=== PATIENT | female | born 1955 | race Caucasian/White ===

== ENCOUNTER → 2019-11-30 09:02 | Outpatient (BNVA) | payer MEDICARE, MEDICAID, SELFPAY | PROVIDERS: Family Provider Family Medicine; PCP Family Medicine; Visit Provider Family Medicine | DX: E87.6 Hypokalemia (principal); E78.5 Hyperlipidemia, unspecified; G47.00 Insomnia, unspecified; I50.9 Heart failure, unspecified | CPT/HCPCS: 80053; 80061; 83735 ==

== ENCOUNTER → 2020-02-20 09:40 | Outpatient (BNVA) | payer MEDICARE, MEDICAID, SELFPAY | PROVIDERS: Family Provider Family Medicine; PCP Family Medicine; Referring Provider Family Medicine; Visit Provider Anesthesiology Pain Medicine | DX: M47.812 Spondylosis without myelopathy or radiculopathy, cervical region (principal); M54.9 Dorsalgia, unspecified; Z79.891 Long term (current) use of opiate analgesic | CPT/HCPCS: 99204 ==

== ENCOUNTER → 2020-03-05 13:07 | Outpatient (BNVA) | payer MEDICARE, MEDICAID, SELFPAY | PROVIDERS: Family Provider Family Medicine; PCP Family Medicine; Visit Provider Anesthesiology Pain Medicine | DX: M47.812 Spondylosis without myelopathy or radiculopathy, cervical region (principal) | CPT/HCPCS: 64633; 64634; 77003; J1030; J2001 ==

== ENCOUNTER → 2020-03-19 10:18 | Outpatient (BNVA) | payer MEDICARE, MEDICAID, SELFPAY | PROVIDERS: Family Provider Family Medicine; PCP Family Medicine; Visit Provider Anesthesiology Pain Medicine | DX: M79.18 Myalgia, other site (principal); M47.812 Spondylosis without myelopathy or radiculopathy, cervical region; M54.9 Dorsalgia, unspecified | CPT/HCPCS: 20553; 99213; J1030; J3490 ==

== ENCOUNTER → 2020-04-16 09:54 | Outpatient (BNVA) | payer MEDICARE, MEDICAID, SELFPAY | PROVIDERS: Family Provider Family Medicine; PCP Family Medicine; Visit Provider Anesthesiology Pain Medicine | DX: M47.812 Spondylosis without myelopathy or radiculopathy, cervical region (principal); M54.9 Dorsalgia, unspecified | CPT/HCPCS: 99212; 99213 ==

== ENCOUNTER 2020-08-01 14:19 | Outpatient (CLI) | payer MEDICARE, MEDICAID, SELFPAY ==
--- NOTE | 2020-08-01 14:00 | MM_ITS ---
WS: [id number] BILATERAL SCREENING DIGITAL MAMMOGRAM WITH CAD HISTORY: Screening COMPARISON: 06/27/2015 Bilateral CC and MLO views submitted. Computer aided detection analyzed. Breast composition: There are scattered areas of fibroglandular density. No suspicious masses, microc alcifications or architectural distortion. Bilateral breast arterial calcifications. MM/[place] [id number] IMPRESSION: BI-RADS: 2-Benign FOLLOW UP: 1 Year Follow-up
--- NOTE | 2020-08-01 14:30 | XR_ITS ---
WS: [id number] SCREENING DEXA SCAN [employer] CLINICAL INFORMATION: Screening COMPARISON: None. FINDINGS: The L1-L4 bone mineral density measures 0.759 g/cm2. This corresponds to a T score score of -3.5 and Z score of -1.8. Left femoral neck bone mineral density measures 0.600 g/cm2. This corresponds to a T score of -3.2 an d Z score of -1.9. Right femoral neck bone mineral density measures 0.677 g/cm2. This corresponds to a T score -2.6of an d Z score of -1.3. Mean femoral neck bone mineral density measures 0.639 g/cm2. This corresponds to a T score of -2.9 an d Z score of -1.6. XR/XR DEXA axial skeleton* [id number] IMPRESSION: Osteoporosis Patient's FRAX calculated 10 year probability for major osteoporotic fracture i s 27.4 % and osteoporotic hip fracture is 8.7%.
== END 2020-08-01 14:20 | disposition home or self-care (01) ==
PROVIDERS: PCP Family Medicine; Visit Provider Family Medicine
DX: Z12.31 Encounter for screening mammogram for malignant neoplasm of breast (principal); Z13.820 Encounter for screening for osteoporosis; Z78.0 Asymptomatic menopausal state; M81.0 Age-related osteoporosis without current pathological fracture
CPT/HCPCS: 77067; 77080

== ENCOUNTER 2020-08-15 10:55 | Outpatient (CLI) | payer MEDICARE, MEDICAID, SELFPAY | END 2020-08-15 10:56 | disposition home or self-care (01) | LOC: LAB 05-26 13:24 | PROVIDERS: PCP Family Medicine; Visit Provider Family Medicine | DX: R00.0 Tachycardia, unspecified (principal); M81.0 Age-related osteoporosis without current pathological fracture | CPT/HCPCS: 80053; 84443 ==

== ENCOUNTER → 2020-12-20 09:54 | Outpatient (BNVA) | payer MEDICARE, MEDICAID, SELFPAY | PROVIDERS: PCP Family Medicine; Visit Provider Anesthesiology Pain Medicine | DX: M79.18 Myalgia, other site (principal); M54.2 Cervicalgia; M47.812 Spondylosis without myelopathy or radiculopathy, cervical region; M54.9 Dorsalgia, unspecified; M25.511 Pain in right shoulder | CPT/HCPCS: 20553; 99214; J1030; J3490 ==

== ENCOUNTER → 2021-01-07 08:45 | Outpatient (BNVA) | payer MEDICARE, MEDICAID, SELFPAY | PROVIDERS: PCP Family Medicine; Visit Provider Family Medicine | DX: E78.2 Mixed hyperlipidemia (principal); N30.00 Acute cystitis without hematuria; R30.0 Dysuria; F41.1 Generalized anxiety disorder; J41.0 Simple chronic bronchitis; M81.0 Age-related osteoporosis without current pathological fracture; M47.27 Other spondylosis with radiculopathy, lumbosacral region; F51.04 Psychophysiologic insomnia; I11.0 Hypertensive heart disease with heart failure; I50.32 Chronic diastolic (congestive) heart failure | CPT/HCPCS: 80053; 80061; 81000; 87086 ==

== ENCOUNTER → 2021-04-04 09:37 | Outpatient (BNVA) | payer MEDICARE, MEDICAID, SELFPAY | PROVIDERS: PCP Family Medicine; Visit Provider Anesthesiology Pain Medicine | DX: G89.29 Other chronic pain (principal); M47.812 Spondylosis without myelopathy or radiculopathy, cervical region; M25.519 Pain in unspecified shoulder; Z79.891 Long term (current) use of opiate analgesic | CPT/HCPCS: 99214 ==

== ENCOUNTER → 2021-05-17 09:36 | Outpatient (BNVA) | payer MEDICARE, MEDICAID, SELFPAY | PROVIDERS: PCP Family Medicine; Visit Provider Anesthesiology Pain Medicine | DX: M47.812 Spondylosis without myelopathy or radiculopathy, cervical region (principal); Z79.891 Long term (current) use of opiate analgesic | CPT/HCPCS: 64633; 64634 ==

== ENCOUNTER → 2021-05-21 09:08 | Outpatient (BNVA) | payer MEDICARE, MEDICAID, SELFPAY | PROVIDERS: PCP Family Medicine; Visit Provider Anesthesiology Pain Medicine | DX: M47.812 Spondylosis without myelopathy or radiculopathy, cervical region (principal); Z79.891 Long term (current) use of opiate analgesic | CPT/HCPCS: 99213; 99214 ==

== ENCOUNTER → 2021-07-16 10:01 | Outpatient (BNVA) | payer MEDICARE, MEDICAID, SELFPAY | PROVIDERS: PCP Family Medicine; Visit Provider Anesthesiology Pain Medicine | DX: M47.812 Spondylosis without myelopathy or radiculopathy, cervical region (principal); Z87.891 Personal history of nicotine dependence | CPT/HCPCS: 99214 ==

== ENCOUNTER → 2021-08-12 13:04 | Outpatient (BNVA) | payer MEDICARE, MEDICAID, SELFPAY | PROVIDERS: PCP Family Medicine; Visit Provider Anesthesiology Pain Medicine | DX: M47.812 Spondylosis without myelopathy or radiculopathy, cervical region (principal); Z87.891 Personal history of nicotine dependence | CPT/HCPCS: 64633; 64634; J1030 ==

== ENCOUNTER → 2021-08-26 09:44 | Outpatient (BNVA) | payer MEDICARE, MEDICAID, SELFPAY | PROVIDERS: PCP Family Medicine; Visit Provider Anesthesiology Pain Medicine | DX: G89.29 Other chronic pain (principal); M47.812 Spondylosis without myelopathy or radiculopathy, cervical region; M54.9 Dorsalgia, unspecified; Z87.891 Personal history of nicotine dependence | CPT/HCPCS: 99213; 99214 ==

== ENCOUNTER → 2021-09-24 10:56 | Outpatient (BNVA) | payer MEDICARE, MEDICAID, SELFPAY | PROVIDERS: PCP Family Medicine; Visit Provider Family Medicine | DX: J44.9 Chronic obstructive pulmonary disease, unspecified (principal); G47.00 Insomnia, unspecified; I10 Essential (primary) hypertension; F41.1 Generalized anxiety disorder; K21.9 Gastro-esophageal reflux disease without esophagitis; M47.817 Spondylosis without myelopathy or radiculopathy, lumbosacral region; E78.2 Mixed hyperlipidemia; J30.9 Allergic rhinitis, unspecified; K86.1 Other chronic pancreatitis; F51.04 Psychophysiologic insomnia; G43.709 Chronic migraine without aura, not intractable, without status migrainosus; M47.27 Other spondylosis with radiculopathy, lumbosacral region | CPT/HCPCS: 80053; 80061; 85025 ==

== ENCOUNTER → 2021-12-31 13:50 | Outpatient (BNVA) | payer MEDICARE, MEDICAID, SELFPAY | PROVIDERS: PCP Family Medicine; Referring Provider Nurse Practitioner Family; Visit Provider Orthopaedic Surgery | DX: M47.12 Other spondylosis with myelopathy, cervical region (principal) | CPT/HCPCS: 72050; 99204 ==

== ENCOUNTER → 2022-01-22 10:48 | Outpatient (BNVA) | payer MEDICARE, MEDICAID, SELFPAY | PROVIDERS: PCP Family Medicine; Visit Provider Emergency Medicine | DX: I25.10 Atherosclerotic heart disease of native coronary artery without angina pectoris (principal); I50.32 Chronic diastolic (congestive) heart failure; I10 Essential (primary) hypertension; R00.1 Bradycardia, unspecified; J41.0 Simple chronic bronchitis; R09.02 Hypoxemia | CPT/HCPCS: 71046; 80053; 80061; 81000; 83880; 85025 ==

== ENCOUNTER 2022-01-23 13:13 | Outpatient (CLI) | payer MEDICARE, MEDICAID, SELFPAY ==
--- NOTE | 2022-01-23 15:15 | MR_ITS ---
WS: [email or web address] MRI LUMBAR SPINE NONCONTRAST TECHNIQUE: Sagittal T1, T2 and STIR imaging. Axial T1 and T2 imaging. CLINICAL INFORMATION: M47.27 - Other spondylosis with radiculopathy, lumbosacra... COMPARISON: None. FINDINGS: Mild lumbar curve. No acute compression. No high-grade central canal stenosis. Mild disc bulging L5-S 1. L1-L2: Normal. L2-L3: Normal. L3-L4: No significant disc bulging. Mild facet arthropathy. Spinal canal and foramen are patent. L4-L5: Mild annular bulging with slight effacement of ventral thecal sac. LEFT proximal foraminal pro trusion with slight contact of the exiting LEFT L4 nerve root. Mild LEFT foraminal narrowing. Slight narrowing of the LEFT subarticular recess. Mild facet arthropathy. L5-S1: Mild disc bulging with osteophytic ridging. Shallow central disc protrusion with slight contac t of the traversing S1 nerve roots bilaterally. Mild facet arthropathy. Mild LEFT and no significant RIGHT foraminal narrowing. LEFT renal parenchymal cysts. 11 mm lesion RIGHT L4 vertebral body likely atypical incidental hemangioma or benign bone [place] MR/MR lumbar spine wo con* [id number] IMPRESSION: 1. Mild lumbar curve. No acute compression. No high-grade central canal stenos is. 2. Shallow central disc protrusion L5-S1 impinges the traversing S1 nerve root s bilaterally. Correlation S1 nerve root symptoms. Mild LEFT L5-S1 foraminal na rrowing. 3. Tiny LEFT proximal foraminal protrusion L4-L5 with mild LEFT L4-L5 foramina l narrowing. In addition encroachment traversing LEFT L5 nerve root 4. Mild facet arthropathy L3-L5.
== END 2022-01-23 13:14 | disposition home or self-care (01) ==
LOC: RAD 13:17
PROVIDERS: PCP Family Medicine; Visit Provider Nurse Practitioner Family
DX: M47.27 Other spondylosis with radiculopathy, lumbosacral region (principal); M51.27 Other intervertebral disc displacement, lumbosacral region
CPT/HCPCS: 72148

== ENCOUNTER → 2022-01-28 14:02 | Outpatient (BNVA) | payer MEDICARE, MEDICAID, SELFPAY | PROVIDERS: PCP Family Medicine; Visit Provider Orthopaedic Surgery | DX: R74.8 Abnormal levels of other serum enzymes (principal) | CPT/HCPCS: 80074; 80076; 82977; 85651; 86038; 86140; 99214 ==

== ENCOUNTER → 2022-02-05 09:48 | Outpatient (BNVA) | payer MEDICARE, MEDICAID, SELFPAY | PROVIDERS: PCP Family Medicine; Referring Provider Orthopaedic Surgery; Visit Provider Anesthesiology Pain Medicine | DX: G89.29 Other chronic pain (principal); M48.062 Spinal stenosis, lumbar region with neurogenic claudication; M47.812 Spondylosis without myelopathy or radiculopathy, cervical region; Z87.891 Personal history of nicotine dependence | CPT/HCPCS: 99214 ==

== ENCOUNTER 2022-02-20 10:27 | Outpatient (CLI) | payer MEDICARE, MEDICAID, SELFPAY ==
--- NOTE | 2022-02-20 11:00 | MR_ITS ---
WS: [email or web address] MRI CERVICAL SPINE NONCONTRAST TECHNIQUE: Sagittal T1, T2 and STIR imaging. Axial T2, gradient, and fiesta imaging. CLINICAL INFORMATION: pain COMPARISON: MRI [address] 1 019 FINDINGS: Some images degraded by patient motion. Straightening of the normal cervical lordosis. Mild cervical curve. No high-grade central canal steno sis. Small disc protrusions at C4-C5 and C5-C6 similar to 2018. C2-C3: No significant disc bulging. Mild facet arthropathy. Foramen are patent. C3-C4: Slight anterolisthesis C3 on C4. Mild bilateral bony foraminal narrowing. Mild facet arthropat hy. Tiny central protrusion. Spinal canal is patent. C4-C5: Disc osteophyte complex with endplate ridging. Mild RIGHT greater than LEFT bony foraminal barb rowing. Mild facet arthropathy. Mild central canal stenosis. C5-C6: Disc osteophyte complex with endplate ridging. Mild central canal stenosis. Mild facet arthrop athy. Mild to moderate RIGHT and mild LEFT bony foraminal narrowing. C6-C7: Disc osteophyte complex with with endplate ridging. Mild LEFT bony foraminal narrowing. Mild f acet arthropathy. C7-T1: Disc osteophytic ridging. Mild LEFT bony foraminal narrowing. RIGHT foramen is patent. Spinal canal is patent. Mild facet arthropathy. Visualized brain stem structures: Normal. Prevertebral soft tissues: Normal. MR/MR cervical spin wo con* [id number] IMPRESSION: Some images degraded by patient motion. 1. Straightening of the normal cervical lordosis. Cord signal is normal. 2. Mild central canal stenosis with tiny disc osteophyte protrusions at C4-C5 and C5-C6 with mild central canal stenosis. This is more prominent at C5-C6 dottie ears unchanged from previous. 3. Mild to moderate bony foraminal narrowing worse at bilateral C4-C5, RIGHT C 5-C6, LEFT C6-C7. This appears similar to 2018 considering patient motion.
== END 2022-02-20 10:28 | disposition home or self-care (01) ==
PROVIDERS: PCP Family Medicine; Visit Provider Orthopaedic Surgery
DX: M47.12 Other spondylosis with myelopathy, cervical region (principal); G89.29 Other chronic pain; M54.2 Cervicalgia; M54.16 Radiculopathy, lumbar region; M48.062 Spinal stenosis, lumbar region with neurogenic claudication; Z87.891 Personal history of nicotine dependence
CPT/HCPCS: 64483; 64484; 72141; J1100; J3490

== ENCOUNTER 2022-02-25 09:42 | Outpatient (CLI) | payer MEDICARE, MEDICAID, SELFPAY ==
--- NOTE | 2022-02-25 10:00 | CT_ITS ---
WS: [email or web address] CT ABDOMEN WITHOUT CONTRAST HISTORY: Lower abdominal pain with cramping for 2 days. Contiguous single phase 5 mm axial imaging performed to the abdomen. Oral contrast has not been provi ded. Coronal and sagittal reformats are submitted. All CT scans at [facility] use at least on e of these dose optimization techniques: automated exposure control; mA and/or kV adjustment per inge ent size (includes targeted exams where dose is matched to clinical indication); or iterative reconst ruction. CONTRAST: None DLP: 496.22 mGy.cm COMPARISON: None available. Lower thorax: Mild emphysematous changes at the lung bases. No significant hiatal hernia. Liver: Normal size liver. No bile duct dilatation. 7 mm hypodense nodule in the LEFT lobe is probably a cyst. Gallbladder: Prior cholecystectomy. Pancreas: Fatty replacement. Spleen: Normal. Adrenals: Normal. Right kidney: Normal. Left kidney: Exophytic low-attenuation 10 mm nodule from the mid LEFT kidney cannot be further charac terized. No obstruction. Aorta: Moderate atherosclerotic plaque within the aorta. No aneurysm. GI tract: Normal. No adenopathy or free fluid. Minimally distended stomach. No small bowel obstruction. The visualized colon the abdomen is moderate ly distended with fecal material. No inflammatory changes or submucosal edema. Abdominal wall: Small fat-containing hernia. Visualized osseous structures: Sclerotic foci in the L3 and L4 vertebral bodies are probably bone isl ands. CT/CT abdomen wo con [id number] IMPRESSION: 1. No acute abdominal abnormalities are identified. 2. Moderate fecal retention and constipation the visualized colon through the abdomen. 3. Old atherosclerosis aorta. 4. No renal obstruction. 5. Prior cholecystectomy.
== END 2022-02-25 09:43 | disposition home or self-care (01) ==
LOC: RAD 09:45
PROVIDERS: PCP Family Medicine; Visit Provider Family Medicine
DX: K59.00 Constipation, unspecified (principal); R10.30 Lower abdominal pain, unspecified
CPT/HCPCS: 74150

== ENCOUNTER → 2022-02-26 13:55 | Outpatient (BNVA) | payer MEDICARE, MEDICAID, SELFPAY | PROVIDERS: PCP Family Medicine; Visit Provider Family Medicine | DX: M47.817 Spondylosis without myelopathy or radiculopathy, lumbosacral region (principal); F41.1 Generalized anxiety disorder; I10 Essential (primary) hypertension; K86.1 Other chronic pancreatitis; J44.9 Chronic obstructive pulmonary disease, unspecified; J30.9 Allergic rhinitis, unspecified; K21.9 Gastro-esophageal reflux disease without esophagitis; G47.00 Insomnia, unspecified; N18.31 Chronic kidney disease, stage 3a; R76.8 Other specified abnormal immunological findings in serum; R74.8 Abnormal levels of other serum enzymes; M47.12 Other spondylosis with myelopathy, cervical region; E78.2 Mixed hyperlipidemia | CPT/HCPCS: 80053 ==

== ENCOUNTER → 2022-03-05 13:07 | Outpatient (BNVA) | payer MEDICARE, MEDICAID, SELFPAY | PROVIDERS: PCP Family Medicine; Visit Provider Anesthesiology Pain Medicine | DX: M54.16 Radiculopathy, lumbar region (principal); M48.062 Spinal stenosis, lumbar region with neurogenic claudication; Z87.891 Personal history of nicotine dependence | CPT/HCPCS: 64483; 64484 ==

== ENCOUNTER → 2022-03-06 14:36 | Outpatient (BNVA) | payer MEDICARE, MEDICAID, SELFPAY | PROVIDERS: PCP Family Medicine; Visit Provider Orthopaedic Surgery | DX: M47.22 Other spondylosis with radiculopathy, cervical region (principal) | CPT/HCPCS: 99214 ==

== ENCOUNTER → 2022-04-24 09:32 | Outpatient (BNVA) | payer MEDICARE, MEDICAID, SELFPAY | PROVIDERS: PCP Family Medicine; Referring Provider Family Medicine; Visit Provider Internal Medicine Rheumatology | DX: M25.50 Pain in unspecified joint (principal); M72.0 Palmar fascial fibromatosis [Dupuytren]; M47.22 Other spondylosis with radiculopathy, cervical region; M48.062 Spinal stenosis, lumbar region with neurogenic claudication; R74.8 Abnormal levels of other serum enzymes; Z79.899 Other long term (current) drug therapy; Z11.1 Encounter for screening for respiratory tuberculosis | CPT/HCPCS: 80076; 82306; 82565; 85025; 85651; 86140; 86200; 86431; 86480; 99204 ==

== ENCOUNTER → 2022-05-14 10:19 | Outpatient (BNVA) | payer MEDICARE, MEDICAID, SELFPAY | PROVIDERS: PCP Family Medicine; Visit Provider Internal Medicine Rheumatology | DX: M19.90 Unspecified osteoarthritis, unspecified site (principal); Z79.899 Other long term (current) drug therapy; M19.041 Primary osteoarthritis, right hand | CPT/HCPCS: 73130; 73630 ==

== ENCOUNTER 2022-07-07 07:41 | Outpatient (CLI) | payer MEDICARE, MEDICAID, SELFPAY ==
--- NOTE | 2022-07-07 08:00 | MR_ITS ---
WS: [email or web address] MRI HEAD WITHOUT CONTRAST TECHNIQUE: Sagittal T1, T2 axial, T2 axial FLAIR, axial and coronal T1 images, axial susceptibility w eighted imaging, axial diffusion weighted images, and coronal T2 images were obtained. CLINICAL INFORMATION: R47.9 - Unspecified speech disturbances COMPARISON: CT 1 14,019 FINDINGS: No evidence of restricted diffusion to suggest acute ischemia. Ventricular system and basal cisterns are patent. Moderate small vessel changes. Mild parenchymal volume loss. Normal posterior fossa. Norm al vascular flow voids at the skull base. No extra-axial fluid collections. No evidence of mass or ma ss effect. Paranasal sinuses are well aerated. Mild mucosal thickening in the LEFT greater than RIGHT mastoid ai r cells. Normal optic chiasm and pituitary infundibulum. Mild symmetric atrophy temporal lobes and hi ppocampal formations. No hemosiderin on the susceptibly weighted images. MR/MR head wo con* [id number] IMPRESSION: 1. No evidence of restricted diffusion to suggest acute ischemia. 2. Moderate small vessel changes with mild to moderate parenchymal volume loss . 3. Mild symmetric atrophy temporal lobes and hippocampal formations. 4. No hemosiderin on the susceptibly weighted images. 5. No other suspicious findings.
== END 2022-07-07 07:42 | disposition home or self-care (01) ==
LOC: RAD 07:41
PROVIDERS: PCP Family Medicine; Visit Provider Family Medicine
DX: R47.9 Unspecified speech disturbances (principal)
CPT/HCPCS: 70551

== ENCOUNTER → 2022-07-16 09:53 | Outpatient (BNVA) | payer MEDICARE, MEDICAID, SELFPAY | PROVIDERS: PCP Family Medicine; Referring Provider Family Medicine; Visit Provider Nurse Practitioner | DX: G43.709 Chronic migraine without aura, not intractable, without status migrainosus (principal); R53.1 Weakness; R26.89 Other abnormalities of gait and mobility; I10 Essential (primary) hypertension; R41.3 Other amnesia; J44.9 Chronic obstructive pulmonary disease, unspecified; Z99.81 Dependence on supplemental oxygen; I25.10 Atherosclerotic heart disease of native coronary artery without angina pectoris; N18.9 Chronic kidney disease, unspecified; E78.5 Hyperlipidemia, unspecified; I25.2 Old myocardial infarction | CPT/HCPCS: 99204 ==

== ENCOUNTER → 2022-07-31 13:37 | Outpatient (BNVA) | payer MEDICARE, MEDICAID, SELFPAY | PROVIDERS: PCP Family Medicine; Visit Provider Internal Medicine Rheumatology | DX: M19.90 Unspecified osteoarthritis, unspecified site (principal); Z79.899 Other long term (current) drug therapy; M72.0 Palmar fascial fibromatosis [Dupuytren]; Z71.85 Encounter for immunization safety counseling; M47.892 Other spondylosis, cervical region | CPT/HCPCS: 99214 ==

== ENCOUNTER → 2022-08-28 10:22 | Outpatient (BNVA) | payer MEDICARE, MEDICAID, SELFPAY | PROVIDERS: PCP Family Medicine; Visit Provider Family Medicine | DX: M47.817 Spondylosis without myelopathy or radiculopathy, lumbosacral region (principal); I10 Essential (primary) hypertension; J44.9 Chronic obstructive pulmonary disease, unspecified; M19.90 Unspecified osteoarthritis, unspecified site; Z79.899 Other long term (current) drug therapy; R41.3 Other amnesia | CPT/HCPCS: 80053; 80076; 82607; 84443; 85025; 85651; 86140 ==

== ENCOUNTER 2022-09-15 13:54 | Outpatient (CLI) | payer MEDICARE, MEDICAID, SELFPAY ==
--- NOTE | 2022-09-15 14:00 | MR_ITS ---
WS: [email or web address] MRA ANGIOGRAPHY [place] OF [place] HISTORY: G43.709 - Chronic migraine without aura, not intractable,... COMPARISON: None available. TECHNIQUE: 3-D MR angiography is performed of the [place]. All images are reviewed including source images. Distal vertebral and basilar arteries are intact with no significant stenosis or plaque. Posterior ce rebral arteries are normal course and caliber. Posterior communicating arteries are both patent. RIGH T posterior communicating artery is dominant. Intracranial portion of the internal carotid arteries are normal course and caliber. No significant a therosclerosis, stenosis or aneurysm identified. Middle and anterior cerebral arteries are both paten t with no significant disease. Anterior communicating artery is also normal. MR/MR angio head wo con [id number] IMPRESSION: Normal MRA [place].
--- NOTE | 2022-09-15 14:15 | MR_ITS ---
WS: [email or web address] MRI BRAIN WITHOUT CONTRAST HISTORY: R53.1 - Weakness COMPARISON: 07/07/2022 TECHNIQUE: Diffusion imaging, multiplanar T1, T2 and FLAIR imaging obtained. Unable to obtain IV acce ss. No evidence for acute infarct or hemorrhage. Beltre-white matter differentiation is normal. Mild atrophy similar to the prior study. Moderate small vessel ischemic type changes. No prior infarc t. Ventricles and extra-axial spaces are normal. No inferior displacement of cerebellar tonsils. The sella turcica and pituitary gland are unremarkabl e. Dural venous sinuses and [place] demonstrate no abnormality on this unenhanced studies. Paranasal sinuses: Clear. Mastoid air cells: Normal. Calvarium and scalp: Intact. MR/MR head wo con* [id number] IMPRESSION: 1. No acute infarct or significant change in the MRI since 07/07/2022. 2. Mild atrophy and moderate small vessel ischemic disease.
== END 2022-09-15 13:55 | disposition home or self-care (01) ==
LOC: RAD 13:54
PROVIDERS: PCP Family Medicine; Visit Provider Nurse Practitioner
DX: G43.709 Chronic migraine without aura, not intractable, without status migrainosus (principal); R53.1 Weakness; I67.82 Cerebral ischemia; G31.9 Degenerative disease of nervous system, unspecified
CPT/HCPCS: 70544; 70551

== ENCOUNTER → 2022-10-02 10:13 | Outpatient (BNVA) | payer MEDICARE, MEDICAID, SELFPAY | PROVIDERS: PCP Family Medicine; Visit Provider Family Medicine | DX: G47.00 Insomnia, unspecified (principal); J44.9 Chronic obstructive pulmonary disease, unspecified; M19.90 Unspecified osteoarthritis, unspecified site; K21.9 Gastro-esophageal reflux disease without esophagitis | CPT/HCPCS: 85025; 86140 ==

== ENCOUNTER → 2022-10-27 09:07 | Outpatient (BNVA) | payer MEDICARE, MEDICAID, SELFPAY | PROVIDERS: PCP Family Medicine; Visit Provider Family Medicine | DX: J41.0 Simple chronic bronchitis (principal); R10.31 Right lower quadrant pain | CPT/HCPCS: 73502 ==

== ENCOUNTER 2022-11-27 09:57 | Outpatient (CLI) | payer MEDICARE, MEDICAID, SELFPAY ==
--- NOTE | 2022-11-27 12:00 | CT_ITS ---
WS: [email or web address] CT PELVIS WITHOUT CONTRAST. HISTORY: R10.31 - Right lower quadrant pain TECHNIQUE: Contiguous imaging is performed of the pelvis without contrast. Coronal and sagittal refor mats are reviewed. All CT scans at [facility] use at least one of these dose optimization latoya hniques: automated exposure control; mA and/or kV adjustment per patient size (includes targeted exam s where dose is matched to clinical indication); or iterative reconstruction. DLP: 230.95 mGy.cm COMPARISON: None available. Mild vascular calcifications at the aortic bifurcation extending into the iliac arteries. The visuali zed GI tract within the pelvis is normal. No obstructive pattern. Mild inspissated fecal material in the distal colon with tortuous loops. No obstructive pattern. Normal distended bladder. No free fluid or adenopathy in the pelvis. No destructive changes involving the bones. No significant disc protrus ion at L4-5 or L5-S1 abutting the nerve root. Abnormal appearance to the soft tissue surrounding the RIGHT hip. There is enlargement and edema inv olving the RIGHT psoas muscle over the anterior RIGHT hip. There is also loss of the normal planes of the RIGHT hip adductor brevis and obturator external muscle attachment. There is a soft tissue low a ttenuation change measuring 3.8 x 3.0 cm within the muscles. There is also mild inflammation surround ing the RIGHT femoral head through the joint spaces. No bone destruction is evident. These findings a re asymmetric to the LEFT hip. CT/CT pelvis wo con [id number] IMPRESSION: 1. Abnormal RIGHT hip and surrounding soft tissue structures. Edema and enlarg ement of the distal RIGHT psoas muscle. Loss of the normal fat plane of the RIG HT adductor brevis and obturator external muscles. Possible low-attenuation mas s measuring 3.8 x 3.0 cm within these muscles. Inflammation surrounding the RIG HT hip with synovial thickening. Differential includes infection/synovitis with extension into the muscle bodies and neoplasm such as a synovial sarcoma. Romero mmend follow-up MRI RIGHT hip with and without contrast to evaluate for possibl e tumor or infection. Less likely posttraumatic. 2. No adenopathy.
== END 2022-11-27 09:58 | disposition home or self-care (01) ==
LOC: RAD 10:02
PROVIDERS: PCP Family Medicine; Visit Provider Family Medicine
DX: R10.31 Right lower quadrant pain (principal)
CPT/HCPCS: 72192

== ENCOUNTER 2022-12-16 11:52 | Inpatient (IN) | payer MEDICARE, MEDICAID, SELFPAY ==
[2022-12-16] VITALS (120 sets, daily range): BP systolic 94–145; BP diastolic 58–105; PULSE 113–142; RESP 15–36; TEMP 36.8–37.2; O2SAT 76–100; BMI 24.0; BMI 23.9
--- NOTE | 2022-12-16 12:05 | XRR_ITS ---
PROCEDURE INFORMATION: Exam: XR Chest Exam date and time: 12/16/2022 12:57 PM Age: 67 years old Clinical indication: Cough and dyspnea and shortness of breath; Additional info: Dyspnea/cough TECHNIQUE: Imaging protocol: Radiologic exam of the chest. Views: 1 view. COMPARISON: CR XR chest 2V* [id number] 01/22/2022 11:02 AM FINDINGS: Lungs: There is interval development of bilateral lower lobe interstitial/consolidative opacities fairly symmetric in distribution. Findings are nonspecific and may be due to multifocal pneumonia, inflammatory process such is BOOP, drug induced pulmonary toxicity or idiopathic interstitial lung disease and could be better assessed on CT exam. Pleural spaces: Unremarkable. No pleural effusion. No pneumothorax. Heart/Mediastinum: Unremarkable. No cardiomegaly. Bones/joints: Unremarkable for age. XR/XR chest 1V portable [id number] IMPRESSION: Interval development of bilateral lower lobe infiltrates, nonspecific as discussed above.
--- NOTE | 2022-12-16 12:06 | ECG_ITS ---
[facility] Test Date: 2022-12-16 Pat Name: Chery Tsang Department: Room: Gender: Female [employer]: : 1955 Requested By: Oleksandr Sahu Order Number: [id number] Saad MD: Wilberto Breaux M.D. Measurements Intervals [place] Rate: 132 P: 150 VA: 199 QRS: 137 QRSD: 90 T: 145 QT: 375 QTc: 557 Interpretive Statements SINUS TACHYCARDIA WITH OCCASIONAL SUPRAVENTRICULAR PREMATURE COMPLEXES ARM LEADS REVERSED [INVERTED P AND QRS IN I] Compared to ECG 09/27/2018 15:40:01 Sinus rhythm no longer present First degree AV block no longer present Electronically Signed On 12-16-2022 17:28:02 CDT by Wilberto Breaux M.D. [email or web address] ([email or web address]) [facility] medical centerCTC Technical Fabricschildren's hospital of [id number]
[2022-12-16] MEDS: sodium chloride 0.9% 1,000 ML 999 ML IV (12:22)
[2022-12-16 12:23] LABS: ABG PCO2 30.9 mmHg (35-45); ABG PH Result 7.49 (7.35-7.45); Alveolar-Arterial Oxygen Gradi 6.7 mmHg (5-10); Arterial Blood Gas Hematocrit 32.1 % (37-47); Base Excess ABG 0.6 mmol/L (-2.0-2.0); Blood Gas Allen Test Pos; Blood Gas Operator Identificat WALCI; Blood Gas Sample Site Brachial, right; Blood Gas Sample Type Arterial; Carboxyhemoglobin 0.9 %THgb (0.4-20.1); HCO3 ABG 23.5 mmol/L (22-26); HGB O2 Sat 89.2 % (95-100); Ionized Calcium Level - ABG 1.1 mmol/L (1.1-1.4); Methemoglobin 1.1 % (0.4-1.5); PO2 ABG 57.5 mmHg (80.0-100.0); Potassium Level - ABG 3.2 mmol/L (3.5-5.0); Total Hemoglobin 10.5 g/dL (12-16)
[2022-12-16 12:25] LABS: Basophils # 0.1 10^3/uL (0.0-0.1); Basophils % 0.3 %; Eosinophils % 0.1 %; Hematocrit 30.3 % (37.0-47.0); Hemoglobin 9.7 g/dL (11.5-15.3); Lymphocytes # 0.4 10^3/uL (0.8-4.8); Lymphocytes % 2.1 %; Mean Corpuscular Hemoglobin 30.7 pg (28.0-34.0); Mean Corpuscular Volume 95.9 fl (81-99); Mean Platelet Volume 10.2 fL (7.4-10.4); Monocytes # 1.4 10^3/uL (0.2-0.9); Monocytes % 7.3 %; Neutrophils # 16.73 10^3/uL (1.8-7.7); Neutrophils % 89.5 %; Nucleated Red Blood Cells % 0 %; Platelet Count 332 10^3/cmm (130-400); Red Blood Count 3.16 10^6/uL (4.1-5.3); Red Cell Distribution Width 15.4 % (12.1-15.1); White Blood Count 18.7 10^3/uL (4.0-10.0)
[2022-12-16 12:47] LABS: Alanine Aminotransferase 29 U/L (0-33); Albumin Level 2.4 g/dL (3.5-5.2); Alkaline Phosphatase 132 U/L (35-105); Blood Urea Nitrogen 16 mg/dL (8-23); Calcium 8.3 mg/dL (8.5-10.5); Carbon Dioxide 21 mmol/L (22-29); Chloride 96 mmol/L (98-107); Creatine Phosphokinase 18 U/L (26-192); Globulin 3.5 g/dL (1.3-4.6); Glomerular Filtration Rate 71.3 mL/min (90-130); Glucose 119 mg/dL (65-115); Lipase 14 U/L (13-60); Magnesium 1.9 mg/dL (1.7-2.3); Osmolality Calculated 278 mOsm/kg (285-295); Sodium 133 mmol/L (136-145); Total Bilirubin 0.4 mg/dL (0.15-1.2); Total Protein 5.9 g/dL (6.6-8.7)
[2022-12-16 12:48] LABS: Anion Gap 19.1 (5-19); Potassium 3.1 mmol/L (3.5-5.1)
[2022-12-16 12:49] LABS: Aspartate Amino Transferase 47 U/L (0-32)
[2022-12-16 12:50] LABS: D Dimer 5.76 ug/mIFEU (0-0.59); Lactic Sepsis W/Reflex 2.2 mmol/L (0.5-2.2)
--- NOTE | 2022-12-16 12:59 | CT_ITS ---
WS: [email or web address] CT CHEST ANGIOGRAPHY WITH REFORMATS HISTORY: hypoxia/tachycardia TECHNIQUE: Contiguous axial images are obtained through the chest during arterial injection of intrav enous contrast. Images are reconstructed to evaluate the pulmonary arteries. MIP imaging also reviewe d. All CT scans at [facility] use at least one of these dose optimization techniques: automat ed exposure control; mA and/or kV adjustment per patient size (includes targeted exams where dose is matched to clinical indication); or iterative reconstruction. CONTRAST: Omnipaque 350; 100 mL IV. DLP: 205.02 mGy.cm COMPARISON: None available. Very good opacification of the pulmonary arteries. No filling defects in the pulmonary arteries. No R IGHT heart strain. Very mild atherosclerosis thoracic aorta. No aneurysm. No dissection. No mediastin al or hilar adenopathy. Heart size is normal. No pericardial or pleural effusions. Lipomatous changes along the intra-atrial septum. Extensive centrilobular emphysema. There is scattered opacifications. Some of these are mild tree-in- bud in distribution. Pleural-based irregular opacifications at the lung bases, within the periphery. Suspect there may be honeycombing or bronchiectasis at the lung bases. Atrophy and fatty replacement of the pancreas. Pancreas is only partially visualized included on this examination. Prior cholecystectomy. No bile duct dilatation. Normal RIGHT adrenal gland. Mild thicke hao of the LEFT adrenal gland. CT/CT angio chest PE protcl [id number] IMPRESSION: 1. No pulmonary embolism. 2. Chronic emphysema. 3. Interstitial thickening and peripheral areas of irregular consolidation pre dominantly in the lower lung hicks. Suspect superimposed pneumonitis on chroni c areas of emphysema and probable honeycombing. 4. No adenopathy. 5. Atherosclerosis aorta.
[2022-12-16 13:00] LABS: Troponin(5th) Baseline 102 ng/L (0-10)
--- NOTE | 2022-12-16 13:18 | ED_ITS ---
HPI - SOB/Dyspnea General: Chief Complaint: Shortness of Breath/Dyspnea Stated Complaint: SOB X 2 WEEKS Time Seen by Provider: 12/16/22 12:02 Source: patient Mode of arrival: EMS History of Present Illness: HPI Narrative: 67-year-old female presents emergency room complaining of shortness of breath palpitations. She had rapid heart rate. She symptoms week and getting progressively worse with exertional dyspnea she usually has oxygen at home but rarely wears it she is gotten the point now she is wearing 2 L continuously. On arrival [facility] here she is in a sinus tachycardia with a rate in the 130s. She has no known history of atrial fibrillation. She denies any chest pain at this time but is complaining significant shortness of breath. MD elicited complaint: shortness of breath and cough Associated symptoms: Deny abdominal pain, chest pain, fever(s), nausea, orthopnea or vomiting Review of Systems Const: Denies: fever(s), chills, body aches, change in appetite, fatigue or malaise ENMT: Denies: throat pain, ear or mastoid pain, nasal discharge or nasal congestion Card: Denies: chest pain, edema, dyspnea on exertion or orthopnea Resp: Denies: dyspnea, productive cough or non-productive cough GI: Denies: abdominal pain, nausea, vomiting, hematemesis, coffee ground emesis, diarrhea, constipation, bloating, hematochezia or melena : Denies: flank pain, difficulty voiding, dysuria, urinary frequency or urinary urgency Skin/Breast: Denies: rash or pruritus PFSH ED PFSH: Medical History Allergic rhinitis Balance disorder Bradycardia with 51-60 beats per minute CAD (coronary artery disease) CHF (congestive heart failure) Chronic migraine Chronic pancreatitis COPD (chronic obstructive pulmonary disease) Dupuytrens contracture Elevated liver enzymes resolved Enrolled in chronic care management ZAYNAB (generalized anxiety disorder) Prozac caused tachycardia. GERD (gastroesophageal reflux disease) High risk medication use HTN (hypertension), benign HCTZ DC due to pancreatitis Hx of acute pancreatitis Due to HCTZ Hyperlipidemia Immunization counseling Inflammatory arthritis Insomnia Was previously on Ambien 10 mg. Weaned down to 5 mg. Lumbosacral spondylosis Memory loss Polyarthralgia Weakness Surgical History H/O section H/O foot surgery H/O tubal ligation H/O: hysterectomy S/P cataract surgery S/P cholecystectomy Social History Smoking and tobacco status: former smoker Quit status (tobacco): has quit using tobacco Year quit tobacco: 2000 Alcohol intake: current Alcohol intake frequency: holidays/special occasions only Alcohol type: wine Desire information about alcohol rehabilitation?: No Desire information about substance/drug rehabilitation?: No Current gender identity: Female Female Reproductive History: Spontaneous abortions: No Physical Exam Const: GENERAL APPEARANCE: cooperative ORIENTATION/CONSCIOUSNESS: Yes awake, Yes oriented to person, Yes oriented to place and Yes oriented to time HENMT: COMMON NORMALS: normocephalic, atraumatic and hearing grossly normal bilaterally HEAD & SCALP: normocephalic and atraumatic Resp: COMMON NORMALS: normal respiratory effort, No retractions and No use of accessory muscles AUSCULTATION: rales Cardio: COMMON NORMALS: regular rhythm and No murmurs present (Cardio) RATE: tachycardic RHYTHM: regular rhythm GI: COMMON NORMALS: Soft to palpation and No hepatosplenomegaly present AUSCULTATION: Yes normoactive bowel sounds PALPATION: Yes Soft to palpation, No Tenderness to palpation present (GI), No Guarding due to palpation present (GI) and Yes No hepatosplenomegaly present Extremity: COMMON NORMALS: normal to inspection, capillary refill normal, no clubbing, cyanosis or edema, no calf tenderness and no pedal edema Neuro: SENSORIUM/ORIENTATION: Yes oriented to person, Yes oriented to place and Yes oriented to time Skin: COMMON NORMALS: no rashes or lesions noted GENERAL SKIN EXAM: no rashes or lesions noted Course Vital Signs: Vital signs: Vital Signs Temperature 98.4 F 12/17/22 20:00 Pulse Rate 107 H 12/17/22 22:00 Respiratory Rate 31 H 12/17/22 21:00 Blood Pressure 118/78 12/17/22 21:00 Pulse Oximetry 94 12/17/22 21:00 Oxygen Delivery Me thod 12/17/22 20:00 MDM - SOB/Dyspnea Medical Decision Making Patient in moderate respiratory distress on arrival. She did respond well to treatment. She given IV fluids started on antibiotics. She was in a sinus tachycardia on arrival she will require admission. CTA does not show any pulmonary embolism chest x-ray does show bilateral lower lobe pneumonias antibiotics started discussed with hospitalist orders written Medical Records I reviewed the patient's medical records. Lab Data I reviewed the patient's lab results. 12/16/22 12:13 12/16/22 12:13 Labs/Radiology: Radiology Impressions Chest X-Ray 12/16/22 12:05 IMPRESSION: Interval development of bilateral lower lobe infiltrates, nonspecific as discussed above. Chest CTA 12/16/22 12:59 IMPRESSION: 1. No pulmonary embolism. 2. Chronic emphysema. 3. Interstitial thickening and peripheral areas of irregular consolidation predominantly in the lower lung hicks. Suspect superimposed pneumonitis on chronic areas of emphysema and probable honeycombing. 4. No adenopathy. 5. Atherosclerosis aorta. Abdomen/Pelvis CT 12/16/22 15:48 IMPRESSION: 1. No acute findings within the abdomen or pelvis. 2. Moderate gaseous distention of the transverse colon presumed secondary to colonic ileus. 3. Chronic changes at the lung bases as previously discussed. Laboratory Results WBC 18.7 10^3/uL (4.0-10.0) H 12/16/22 12:13 RBC 3.16 10^6/uL (4.1-5.3) L 12/16/22 12:13 Hgb 8.6 g/dL (11.5-15.3) L 12/16/22 19:34 Hct 26.8 % (37.0-47.0) L 12/16/22 19:34 MCV 95.9 fl (81-99) 12/16/22 12:13 MCH 30.7 pg (28.0-34.0) 12/16/22 12:13 MCHC 32.0 g/dL (30.0-36.0) 12/16/22 12:13 RDW 15.4 % (12.1-15.1) H 12/16/22 12:13 Plt Count 332 10^3/cmm (130-400) 12/16/22 12:13 MPV 10.2 fL (7.4-10.4) 12/16/22 12:13 Neut % (Auto) 89.5 % 12/16/22 12:13 Lymph % (Auto) 2.1 % 12/16/22 12:13 [place] % (Auto) 7.3 % 12/16/22 12:13 Eos % (Auto) 0.1 % 12/16/22 12:13 Baso % (Auto) 0.3 % 12/16/22 12:13 Neut # (Auto) 16.73 10^3/uL (1.8-7.7) H 12/16/22 12:13 Lymph # (Auto) 0.4 10^3/uL (0.8-4.8) L 12/16/22 12:13 [place] # (Auto) 1.4 10^3/uL (0.2-0.9) H 12/16/22 12:13 Eos # (Auto) 0.0 10^3/uL (0.0-0.8) 12/16/22 12:13 Baso # (Auto) 0.1 10^3/uL (0.0-0.1) 12/16/22 12:13 Nucleated RBC % (auto) 0 % 12/16/22 12:13 Nucleated RBCs # 0.0 /100WBC 12/16/22 12:13 PT 19.30 SECONDS (12.1-14.9) H 12/16/22 16:45 INR 1.57 (0.8-1.2) H 12/16/22 16:45 D-Dimer 5.76 ug/mIFEU (0-0.59) H 12/16/22 12:13 Specimen Type Arterial 12/16/22 12:12 Sample Site Brachial, right 12/16/22 12:12 ABG pH 7.49 (7.35-7.45) H 12/16/22 12:12 ABG pCO2 30.9 mmHg (35-45) L 12/16/22 12:12 ABG pO2 57.5 mmHg (80.0-100.0) L 12/16/22 12:12 ABG HCO3 23.5 mmol/L (22-26) 12/16/22 12:12 ABG O2 Saturation 91.0 12/16/22 12:12 ABG Base Excess 0.6 mmol/L (-2.0-2.0) 12/16/22 12:12 Vasyl Test Pos 12/16/22 12:12 A-a O2 Gradient 6.7 mmHg (5-10) 12/16/22 12:12 Hematocrit 32.1 % (37-47) L 12/16/22 12:12 Hgb O2 Saturation 89.2 % (95-100) L 12/16/22 12:12 Carboxyhemoglobin 0.9 %THgb (0.4-20.1) 12/16/22 12:12 Methemoglobin 1.1 % (0.4-1.5) 12/16/22 12:12 Total Hemoglobin 10.5 g/dL (12-16) L 12/16/22 12:12 Sodium 136.0 mmol/L (131-143) 12/16/22 12:12 Potassium 3.2 mmol/L (3.5-5.0) L 12/16/22 12:12 Glucose 129.0 mg/dL (70-115) H 12/16/22 12:12 Ionized Calcium 1.1 mmol/L (1.1-1.4) 12/16/22 12:12 O2 Delivery Device None 12/16/22 12:12 FiO2 21.0 % 12/16/22 12:12 Stage Rigger ID [place] 12/16/22 12:12 Sodium 133 mmol/L (136-145) L 12/16/22 12:13 Potassium 3.1 mmol/L (3.5-5.1) L 12/16/22 12:13 Chloride 96 mmol/L (98-107) L 12/16/22 12:13 Carbon Dioxide 21 mmol/L (22-29) L 12/16/22 12:13 Anion Gap 19.1 (5-19) H 12/16/22 12:13 BUN 16 mg/dL (8-23) 12/16/22 12:13 Creatinine 0.8 mg/dL (0.5-0.9) 12/16/22 12:13 GFR Calculation 71.3 mL/min (90-130) L 12/16/22 12:13 Glucose 119 mg/dL (65-115) H 12/16/22 12:13 Calculated Osmolality 278 mOsm/kg (285-295) L 12/16/22 12:13 Lactic Acid 2.2 mmol/L (0.5-2.2) 12/16/22 12:13 Lactic Acid (Sepsis) 1.8 mmol/L (0.5-2.2) 12/16/22 14:55 Calcium 8.3 mg/dL (8.5-10.5) L 12/16/22 12:13 Magnesium 1.9 mg/dL (1.7-2.3) 12/16/22 12:13 Iron 36 ug/dL (37-145) L 12/16/22 12:13 TIBC 145 mcg/dl 12/16/22 12:13 % Saturation 24.8 % (20-50) 12/16/22 12:13 Unsat Iron Binding 109 ug/dL (112-347) L 12/16/22 12:13 Ferritin 2593 ng/mL (15-150) H 12/16/22 12:13 Total Bilirubin 0.4 mg/dL (0.15-1.2) 12/16/22 12:13 AST 47 U/L (0-32) H 12/16/22 12:13 ALT 29 U/L (0-33) 12/16/22 12:13 Alkaline Phosphatase 132 U/L (35-105) H 12/16/22 12:13 Creatine Kinase 18 U/L (26-192) L 12/16/22 12:13 Troponin T Baseline 102 ng/L (0-10) H* 12/16/22 12:13 Troponin T 120 Minute 100.4 ng/L (0-10) H 12/16/22 14:18 Delta Troponin T -1.6 ABS# (0-10) L 12/16/22 14:18 Troponin T Hi Sens 6Hr 112.3 ng/L (0-10) H 12/16/22 19:34 Troponin T Hi Sens 6Hr Delta 10.3 ng/L (0-12) 12/16/22 19:34 C-Reactive Protein 307.6 mg/L (0.0-4.9) H 12/16/22 12:13 Total Protein 5.9 g/dL (6.6-8.7) L 12/16/22 12:13 Albumin 2.4 g/dL (3.5-5.2) L 12/16/22 12:13 Globulin 3.5 g/dL (1.3-4.6) 12/16/22 12:13 Lipase 14 U/L (13-60) 12/16/22 12:13 Vitamin B12 1809 pg/mL (232-1245) H 12/16/22 12:13 Folate 4.1 ng/mL (4.8-37.3) L 12/16/22 12:13 Procalcitonin 0.33 ng/mL (0-0.5) 12/16/22 12:13 TSH 1.47 uIU/mL (0.27-4.20) 12/16/22 19:37 Hepatitis A IgM Ab Non-reactive (Nonreactive) 12/16/22 12:13 Hep Bs Antigen Non-reactive (Nonreactive) 12/16/22 12:13 Hep B Core IgM Ab Non-reactive (Nonreactive) 12/16/22 12:13 Hepatitis C Antibody Non-reactive (Nonreactive) 12/16/22 12:13 HIV 1&2 Ab & HIV 1 Ag Non-reactive (Non-Reactiv) 12/16/22 12:13 HIV 1&2 Antibody Non-reactive (Non-Reactiv) 12/16/22 12:13 Blood Type O Positive 12/16/22 19:34 Rho(D) Type Positive 12/16/22 19:34 Antibody Screen Negative 12/16/22 19:34 Crossmatch See Detail 12/16/22 19:34 Discharge Plan Discharge Patient Disposition: Home Clinical Impression: Community acquired pneumonia, Acute exacerbation of chronic obstructive airways disease Condition: Stable Coding Level of Care Code ED Orthopedic Rn for Mirna Turpin
[2022-12-16] MEDS: iohexol 350 mg/mL 500 mL Btl (per mL) IV (13:52)
[2022-12-16 14:06] LABS: Reflex Lactate Order REFLEX LACTIC ORDERD
--- NOTE | 2022-12-16 14:06 | ECG_ITS ---
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 Measurements Intervals [place] Rate: 124 P: 82 ME: 185 QRS: 71 QRSD: 89 T: 83 QT: 405 QTc: 583 Interpretive Statements SINUS TACHYCARDIA WITH OCCASIONAL SUPRAVENTRICULAR PREMATURE COMPLEXES LOW QRS VOLTAGE IN PRECORDIAL LEADS [QRS DEFLECTION < 1.0 mV IN CHEST LEADS] Compared to ECG 12/16/2022 12:11:27 Low QRS voltage now present Electronically Signed On 12-16-2022 17:29:49 CDT by Wilberto Breaux M.D. [id number]
[2022-12-16] MEDS: cefTRIAXone 1,000 MG in sodium chloride 0.9% (plus) 50 ML 100 MG IV (14:34)
[2022-12-16] MEDS: azithromycin 500 MG in sodium chloride 0.9% 250 ML 250 MG IV (14:51)
[2022-12-16 14:53] LABS: Troponin 5 2HR Delta -1.6 ABS# (0-10)
[2022-12-16] MEDS: ipratropium-albuterol 3 mL Neb INHALATION (14:53)
[2022-12-16 14:56] LABS: Troponin 5 2HR 100.4 ng/L (0-10)
[2022-12-16 15:38] LABS: Lactic Acid level (Lactate) 1.8 mmol/L (0.5-2.2)
--- NOTE | 2022-12-16 15:48 | CTR_ITS ---
PROCEDURE INFORMATION: Exam: CT Abdomen And Pelvis Without Contrast Exam date and time: 12/16/2022 4:07 PM Age: 67 years old Clinical indication: Other: Diarrhea and abd pain. Prior surgery; Surgery date: 6+ months; Surgery type: Hysto, ; Additional info: Abdominal pain and diarrhea TECHNIQUE: Imaging protocol: Computed tomography of the abdomen and pelvis without contrast. Radiation optimization: All CT scans at this facility use at least one of these dose optimization techniques: automated exposure control; mA and/or kV adjustment per patient size (includes targeted exams where dose is matched to clinical indication); or iterative reconstruction. REPORTING DATA: Count of CT and Cardiac NM exams in prior 12 months: This patient has received 3 known CTs and 0 known cardiac nuclear medicine studies in the 12 months prior to the current study. COMPARISON: CT pelvis wo con [id number] 11/27/2022 10:13 AM RADIATION DOSE METRICS: Total DLP (mGy-cm): 371.63 FINDINGS: Lungs: Chronic interstitial lung changes intermixed with emphysematous changes, bronchiectasis and subsegmental atelectasis at the lung bases. Liver: Small hypodensity left lobe likely representing a small liver cyst. Gallbladder and bile ducts: Gallbladder has been removed. Bile ducts are not appreciably dilated. Pancreas: Unremarkable. Main pancreatic duct is not significantly dilated. Spleen: Normal. No splenomegaly. Adrenal glands: Normal. No mass. Kidneys and ureters: Small cortical cyst lower pole left kidney likely benign otherwise kidneys are unremarkable. There is contrast within the collecting system from previous CT angio chest. Stomach and bowel: Moderate gaseous distention primarily involving transverse colon presumed secondary to colonic ileus. Remainder of the GI tract is unremarkable. Appendix: No evidence of appendicitis. Intraperitoneal space: Unremarkable. No free air. No significant fluid collection. Vasculature: Scattered atherosclerotic changes of the abdominal aorta and iliac vessels. No aortic aneurysm. Lymph nodes: Unremarkable. No enlarged lymph nodes. Urinary bladder: Urinary bladder is completely opacified from previous CT injection and otherwise unremarkable. Reproductive: Uterus has been removed. Bones/joints: Unremarkable. No acute fracture. Soft tissues: Unremarkable. CT/CT abdomen pelvis wo con [id number] IMPRESSION: 1. No acute findings within the abdomen or pelvis. 2. Moderate gaseous distention of the transverse colon presumed secondary to colonic ileus. 3. Chronic changes at the lung bases as previously discussed.
--- NOTE | 2022-12-16 16:00 | P.HP_ITS ---
Providers/Chief Complaint Primary Care Provider: Deidra Cid MD Chief Complaint: SOB X 2 WEEKS History of Present Illness Chery Tsang is a 67 year old female past medical history of CAD, on aspirin, history of COPD, history of chronic pancreatitis on Creon, GERD, hypertension, history of inflammatory arthritis, on leflunomide, Plaquenil, hypertension, history of CHF, GERD, who presents [facility] due to complaints of black tarry schools for the last week, weakness, fatigue, shortness of breath for the last 2 weeks. Patient reports that what brought her to the emergency room today was that her black tarry stools, she has been feeling increasingly short of breath, increasingly weak fatigued tired and lightheaded. She also been complaining of night sweats, and chills, and fevers. Denies any cough. She tells me that she also has severe abdominal pain which brings her to the emergency room the abdominal pain is all over her abdomen. She had an episode of black tarry stool this morning. Denies any history of GI bleeds. No history of anemia. She tells me that she had a colonoscopy a few years ago, which was unremarkable. She has never had an EGD. She denies any cough, she tells me she is always short of breath, but she is now more short of breath than usual, no chest pain, no palpitations. In the emergency room patient looks pale, in pain, particularly abdominal pain, tachycardic heart rates in the 120s, sinus, blood pressure 119/80, following all commands. Hemoccult stool performed by the ER provider was positive. Hemoglobin 9.7. Given elevated D-dimer, and elevated white count she underwent CT angiogram which excluded pulmonary embolism. She also was found to have elevated troponins, takes a baby aspirin no history of angiography, no reported chest pain, EKG no acute ST-T wave changes Review of Systems Const: Reports: fever(s), chills, fatigue and malaise Eyes: Denies: change in vision Card: Reports: lightheadedness; Denies: chest pain or palpitations Resp: Reports: dyspnea; Denies: productive cough or non-productive cough GI: Reports: abdominal pain and melena; Denies: nausea, vomiting, hematemesis or coffee ground emesis : Reports: difficulty voiding; Denies: flank pain, dysuria or urinary frequency Musc: Denies: back pain Skin/Breast: Denies: rash Neuro: Reports: weakness in extremities; Denies: headache(s) or numbness in extremities Psych: Denies: anxiety Endo: Denies: polyuria Devin/Lymph: Denies: easy bruising Medications/Allergies Home Medications Medication Instructions Recorded Confirmed Last Taken Type aspirin 81 mg tablet,delayed 81 mg PO DAILY 10/26/19 12/16/22 12/16/22 History release fexofenadine 60 mg tablet (Shwetha 60 mg PO BID 05/22/20 12/16/22 12/16/22 History Allergy) albuterol sulfate 2.5 mg/3 mL 2.5 mg inhalation QID PRN 01/10/21 12/16/22 Unknown History (0.083 %) solution for nebulization shortness of breath or wheezing hydralazine 25 mg tablet 25 mg PO BID PRN high blood 06/19/21 12/16/22 Unknown Rx pressure #30 tabs atorvastatin 10 mg tablet 10 mg PO DAILY 90 days #90 tabs 09/24/21 12/16/22 12/15/22 Rx Oxygen #1 ea 01/22/22 12/16/22 Unknown Rx hydroxyzine HCl 25 mg tablet 50 mg PO BID PRN anxiety, sleep, 02/26/22 12/16/22 Unknown Rx itching 30 days #60 tabs ipratropium 20 mcg-albuterol 100 1 puff inhalation QID PRN 02/26/22 12/16/22 Unknown Rx mcg/actuation mist for inhalation shortness of breath or wheezing 30 (Combivent Respimat) days #4 grams [id number]-[id number]-qizwnct 1 cap PO TID #90 caps 02/26/22 12/16/22 12/16/22 Rx 24,000-76,000-120,000 unit capsule,delayed rel (Creon) albuterol sulfate 90 mcg/actuation 2 puff inhalation Q6H PRN 07/03/22 12/16/22 Unknown Rx aerosol inhaler (Proventil HFA) shortness of breath or wheezing 30 days #18 grams amlodipine 10 mg tablet 5 mg PO DAILY 90 days #90 tabs 07/03/22 12/16/22 12/16/22 Rx benzonatate 100 mg capsule See Rx Instructions .Route 07/03/22 12/16/22 Unknown Rx .COMPLEX #90 caps buspirone 10 mg tablet 10 mg PO BID PRN anxiety #30 tabs 07/03/22 12/16/22 Unknown Rx famotidine 20 mg tablet (Pepcid) 20 mg PO DAILY 90 days #90 tabs 07/03/22 12/16/22 12/16/22 Rx guaifenesin 600 mg tablet, 600 mg PO Q12H PRN congestion 30 07/03/22 12/16/22 Unknown Rx extended release 12 hr days #60 tabs metoprolol tartrate 100 mg tablet 100 mg PO BID 90 days #180 tabs 07/03/22 12/16/22 12/16/22 Rx tizanidine 4 mg tablet See Rx Instructions .Route 07/03/22 12/16/22 Unknown Rx .COMPLEX #120 tabs pregabalin 100 mg capsule 100 mg PO TID 30 days #90 caps 08/28/22 12/16/22 12/16/22 Rx promethazine 25 mg tablet See Rx Instructions .Route 10/02/22 12/16/22 Unknown Rx .COMPLEX #14 tabs hydroxychloroquine 200 mg tablet 200 mg PO BID #60 tabs 10/30/22 12/16/22 12/16/22 Rx amitriptyline 50 mg tablet 50 mg PO BEDTIME 12/16/22 12/16/22 12/15/22 History fluticasone propionate 50 1 spray intranasal Q12H PRN Nasal 12/16/22 12/16/22 Unknown History mcg/actuation nasal Congestion spray,suspension leflunomide 10 mg tablet 10 mg PO DAILY 12/16/22 12/16/22 12/16/22 History rimegepant 75 mg disintegrating 75 mg PO EVERY OTHER DAY 12/16/22 12/16/22 Unknown History tablet (Nurtec ODT) sertraline 50 mg tablet 50 mg PO DAILY 12/16/22 12/16/22 12/16/22 History zolpidem 5 mg tablet 5 mg PO BEDTIME 12/16/22 12/16/22 12/15/22 History Allergies Allergy/AdvReac Type Severity Reaction Status Date / Time celecoxib [From Celebrex] Allergy heart Verified 12/16/22 07:26 palpatations gabapentin Allergy ADR-Shakine Verified 12/16/22 07:26 ss fluoxetine AdvReac Intermediate tachycardia Verified 12/16/22 07:26 methotrexate AdvReac Intermediate lip Verified 12/16/22 07:26 swelling morphine AdvReac Mild ADR-Nausea Verified 12/16/22 07:26 PFSH Acute PFSH: Medical History Allergic rhinitis Balance disorder Bradycardia with 51-60 beats per minute CAD (coronary artery disease) CHF (congestive heart failure) Chronic migraine Chronic pancreatitis COPD (chronic obstructive pulmonary disease) Dupuytrens contracture Elevated liver enzymes resolved Enrolled in chronic care management ZAYNAB (generalized anxiety disorder) Prozac caused tachycardia. GERD (gastroesophageal reflux disease) High risk medication use HTN (hypertension), benign HCTZ DC due to pancreatitis Hx of acute pancreatitis Due to HCTZ Hyperlipidemia Immunization counseling Inflammatory arthritis Insomnia Was previously on Ambien 10 mg. Weaned down to 5 mg. Lumbosacral spondylosis Memory loss Polyarthralgia Weakness Surgical History H/O section H/O foot surgery H/O tubal ligation H/O: hysterectomy S/P cataract surgery S/P cholecystectomy Social History Smoking and tobacco status: former smoker Quit status (tobacco): has quit using tobacco Year quit tobacco: 2000 Alcohol intake: current Alcohol intake frequency: holidays/special occasions only Alcohol type: wine Desire information about alcohol rehabilitation?: No Desire information about substance/drug rehabilitation?: No Current gender identity: Female Female Reproductive History: Spontaneous abortions: No Vitals/I&O/Wt Last Vital Signs Temp 98.3 F 12/16/22 11:59 Pulse 126 H 12/16/22 14:58 Resp 18 12/16/22 14:53 BP 111/79 12/16/22 11:59 Pulse Ox 96 12/16/22 14:53 O2 Del Method 12/16/22 14:53 12/16/22 12/16/22 12/16/22 06:59 14:59 22:59 Intake Total 1000 / 1000 Balance 1000 / 1000 Weight last 48 hrs Weight 61.689 kg Physical Exam Const: COMMON NORMALS: no acute distress and patient oriented x3 HENMT: COMMON NORMALS: normocephalic HEAD & SCALP: normocephalic Eye: COMMON NORMALS: Equal, round and reactive pupils present and EOMs intact bilaterally OTHER: Conjunctival pallor Neck/C-Spine: COMMON NORMALS: no JVD Lymph: LYMPHATIC: no lymphadenopathy noted Resp: COMMON NORMALS: normal respiratory effort, No retractions, No use of accessory muscles and clear to auscultation bilaterally AUSCULTATION: clear to auscultation bilaterally Cardio: COMMON NORMALS: regular rate, regular rhythm, S1 normal heart sound present and S2 normal heart sound present RATE: tachycardic RHYTHM: regular rhythm HEART SOUNDS: S1 normal heart sound present and S2 normal heart sound present GI: COMMON NORMALS: Normal to inspection, nondistended, normoactive bowel so unds present and Soft to palpation PALPATION: Yes Soft to palpation, Yes Tenderness to palpation present (GI) (Diffusely tender), No Guarding due to palpation present (GI), No Rigid due to palpation and Yes No hepatosplenomegaly present Extremity: COMMON NORMALS: no calf tenderness and no pedal edema Neuro: COMMON NORMALS: patient oriented x3, CN's II-XII intact bilaterally, moves all extremities and no focal motor deficits Psych: COMMON NORMALS: mental status grossly normal Data 12/16/22 12:13 12/16/22 12:13 Micro: Microbiology 12/16/22 13:25 Blood Culture - Preliminary Blood SPECIMEN COLLECTED 12/16/22 13:15 Blood Culture - Preliminary Blood SPECIMEN COLLECTED A&P Assessment and plan (1) Upper GI bleed: (2) NSTEMI (non-ST elevated myocardial infarction): (3) Hypokalemia: (4) CKD (chronic kidney disease): Qualifiers: Chronic kidney disease stage: stage 3 (moderate) Chronic kidney disease stage 3 subtype: stage 3a (GFR 45-59) Qualified Code(s): N18.31 - Chronic kidney disease, stage 3a (5) CHF (congestive heart failure): Qualifiers: Heart failure type: diastolic Heart failure chronicity: chronic Qualified Code(s): I50.32 - Chronic diastolic (congestive) heart failure (6) CAD (coronary artery disease): Qualifiers: Coronary Disease-Associated Artery/Lesion type: [place] artery [place] vs. transplanted heart: [place] heart Associated angina: without angina Qualified Code(s): I25.10 - Atherosclerotic heart disease of [place] coronary artery without angina pectoris (7) Hyperlipidemia: Qualifiers: Hyperlipidemia type: mixed hyperlipidemia Qualified Code(s): E78.2 - Mixed hyperlipidemia (8) GERD (gastroesophageal reflux disease): Qualifiers: Esophagitis presence: without esophagitis Qualified Code(s): K21.9 - Gastro-esophageal reflux disease without esophagitis (9) HTN (hypertension), benign: (10) Leukocytosis: Plan GI bleed -Concerns for upper GI bleed -He is on aspirin, steroids -Hemoccult positive stools, complains of black tarry stools Plan -Admit to ICU -IV fluids -Protonix -Carafate -Monitor hemoglobin every 4 hours -Monitor hemodynamics closely -Keep on clears for now, n.p.o. over midnight -General surgery consulted for EGD -We will do CT scan abdomen pelvis Acute anemia -Hemoglobin 9.7 -We will do iron studies Hypokalemia -IV potassium replacement Non-ST elevation CO -No complaints of chest pain -EKG no acute ST-T wave changes -Antiplatelet and anticoagulant therapy relatively contraindicated currently given GI bleed -I highly suspect her troponin elevation is likely secondary to GI bleed as above however cannot rule out underlying cardiac etiology given her history of CAD -Continue telemetry monitoring -Continue statin -Cardiac echo Leukocytosis, complaints of fevers, chills -Patient has immunocompromise state, as she is on Plaquenil, leflunomide -On examination, no wheezing on exam CT angiogram did not show any significant radiographic evidence of pneumonia she uses 2 L at baseline currently on 2 L -She does complain of dysuria will await urinalysis -Does complain of diarrhea, will do stool studies -She has Rocephin, azithromycin -CT scan abdomen and pelvis as above -Zosyn for now -MRSA nares PCR CAD, as above COPD, not in exacerbation, as above Will admit to ICU DNR/DNI, agreeable to elective intubation for procedure if required SCDs for DVT prophylaxis Attestations Medical Necessity Statement*: Patient requires hospitalization, inpatient, greater than 2 midnights, for GI bleed, NSTEMI, leukocytosis, fevers Coding Level of Care Code Acute Code for Chg Fwd Diagnoses Upper GI bleed K92.2 NSTEMI (non-ST elevated myocardial infarction) I21.4 Hypokalemia E87.6 CKD (chronic kidney disease) N18.31 Chronic kidney disease stage: stage 3 (moderate) Chronic kidney disease stage 3 subtype: stage 3a (GFR 45-59) CHF (congestive heart failure) I50.32 Heart failure type: diastolic Heart failure chronicity: chronic CAD (coronary artery disease) I25.10 Coronary Disease-Associated Artery/Lesion type: [place] artery [place] vs. transplanted heart: [place] heart Associated angina: without angina Hyperlipidemia E78.2 Hyperlipidemia type: mixed hyperlipidemia GERD (gastroesophageal reflux disease) K21.9 Esophagitis presence: without esophagitis HTN (hypertension), benign I10 Leukocytosis D72.829
--- NOTE | 2022-12-16 16:02 | P.CONIM_ITS ---
Providers/Reason For Consult Consulting Physician/Specialty*: I was consulted by the hospitalist Reason for Consult*: Possible upper GI bleed Primary Care Provider: Deidra Cid MD History of Present Illness History of Present Illness Chery Tsang is a 67 year old female The presents with a several day history of black tarry stools. The patient has had increased weakness. She has had increased dizziness. She denies nausea or vomiting. She has had no hematemesis. She has had no chest pain. She does have some shortness of breath. The patient has recently been on a course of steroids. The patient does take a baby aspirin a day. It is possible that the combination of the steroids plus the aspirin has caused the patient have either gastritis or a peptic ulcer. Review of Systems General: Reports: 10 or more systems reviewed and unremarkable except in HPI and below Medications/Allergies Home Medications Medication Instructions Recorded Confirmed Last Taken Type aspirin 81 mg tablet,delayed 81 mg PO DAILY 10/26/19 12/16/22 12/16/22 History release fexofenadine 60 mg tablet (Shwetha 60 mg PO BID 05/22/20 12/16/22 12/16/22 History Allergy) albuterol sulfate 2.5 mg/3 mL 2.5 mg inhalation QID PRN 01/10/21 12/16/22 Unknown History (0.083 %) solution for nebulization shortness of breath or wheezing hydralazine 25 mg tablet 25 mg PO BID PRN high blood 06/19/21 12/16/22 Unknown Rx pressure #30 tabs atorvastatin 10 mg tablet 10 mg PO DAILY 90 days #90 tabs 09/24/21 12/16/22 12/15/22 Rx Oxygen #1 ea 01/22/22 12/16/22 Unknown Rx hydroxyzine HCl 25 mg tablet 50 mg PO BID PRN anxiety, sleep, 02/26/22 12/16/22 Unknown Rx itching 30 days #60 tabs ipratropium 20 mcg-albuterol 100 1 puff inhalation QID PRN 02/26/22 12/16/22 Un known Rx mcg/actuation mist for inhalation shortness of breath or wheezing 30 (Combivent Respimat) days #4 grams [id number]-uklhxhoh-nmtdfum 1 cap PO TID #90 caps 02/26/22 12/16/22 12/16/22 Rx 24,000-76,000-120,000 unit capsule,delayed rel (Creon) albuterol sulfate 90 mcg/actuation 2 puff inhalation Q6H PRN 07/03/22 12/16/22 Unknown Rx aerosol inhaler (Proventil HFA) shortness of breath or wheezing 30 days #18 grams amlodipine 10 mg tablet 5 mg PO DAILY 90 days #90 tabs 07/03/22 12/16/22 12/16/22 Rx benzonatate 100 mg capsule See Rx Instructions .Route 07/03/22 12/16/22 Unknown Rx .COMPLEX #90 caps buspirone 10 mg tablet 10 mg PO BID PRN anxiety #30 tabs 07/03/22 12/16/22 Unknown Rx famotidine 20 mg tablet (Pepcid) 20 mg PO DAILY 90 days #90 tabs 07/03/22 12/16/22 12/16/22 Rx guaifenesin 600 mg tablet, 600 mg PO Q12H PRN congestion 30 07/03/22 12/16/22 Unknown Rx extended release 12 hr days #60 tabs metoprolol tartrate 100 mg tablet 100 mg PO BID 90 days #180 tabs 07/03/22 12/16/22 12/16/22 Rx tizanidine 4 mg tablet See Rx Instructions .Route 07/03/22 12/16/22 Unknown Rx .COMPLEX #120 tabs pregabalin 100 mg capsule 100 mg PO TID 30 days #90 caps 08/28/22 12/16/22 12/16/22 Rx promethazine 25 mg tablet See Rx Instructions .Route 10/02/22 12/16/22 Unknown Rx .COMPLEX #14 tabs hydroxychloroquine 200 mg tablet 200 mg PO BID #60 tabs 10/30/22 12/16/22 12/16/22 Rx amitriptyline 50 mg tablet 50 mg PO BEDTIME 12/16/22 12/16/22 12/15/22 History fluticasone propionate 50 1 spray intranasal Q12H PRN Nasal 12/16/22 12/16/22 Unknown History mcg/actuation nasal Congestion spray,suspension leflunomide 10 mg tablet 10 mg PO DAILY 12/16/22 12/16/22 12/16/22 History rimegepant 75 mg disintegrating 75 mg PO EVERY OTHER DAY 12/16/22 12/16/22 Unknown History tablet (Nurtec ODT) sertraline 50 mg tablet 50 mg PO DAILY 12/16/22 12/16/22 12/16/22 History zolpidem 5 mg tablet 5 mg PO BEDTIME 12/16/22 12/16/22 12/15/22 History Allergies Allergy/AdvReac Type Severity Reaction Status Date / Time celecoxib [From Celebrex] Allergy heart Verified 12/16/22 07:26 palpatations gabapentin Allergy ADR-Shakine Verified 12/16/22 07:26 ss fluoxetine AdvReac Intermediate tachycardia Verified 12/16/22 07:26 methotrexate AdvReac Intermediate lip Verified 12/16/22 07:26 swelling morphine AdvReac Mild ADR-Nausea Verified 12/16/22 07:26 PFSH Acute PFSH: Medical History Allergic rhinitis Balance disorder Bradycardia with 51-60 beats per minute CAD (coronary artery disease) CHF (congestive heart failure) Chronic migraine Chronic pancreatitis COPD (chronic obstructive pulmonary disease) Dupuytrens contracture Elevated liver enzymes resolved Enrolled in chronic care management ZAYNAB (generalized anxiety disorder) Prozac caused tachycardia. GERD (gastroesophageal reflux disease) High risk medication use HTN (hypertension), benign HCTZ DC due to pancreatitis Hx of acute pancreatitis Due to HCTZ Hyperlipidemia Immunization counseling Inflammatory arthritis Insomnia Was previously on Ambien 10 mg. Weaned down to 5 mg. Lumbosacral spondylosis Memory loss Polyarthralgia Weakness Surgical History H/O section H/O foot surgery H/O tubal ligation H/O: hysterectomy S/P cataract surgery S/P cholecystectomy Social History Smoking and tobacco status: former smoker Quit status (tobacco): has quit using tobacco Year quit tobacco: 2000 Alcohol intake: current Alcohol intake frequency: holidays/special occasions only Alcohol type: wine Desire information about alcohol rehabilitation?: No Desire information about substance/drug rehabilitation?: No Current gender identity: Female Female Reproductive History: Spontaneous abortions: No Vitals/I&O/Wt Last Vital Signs Temp 98.3 F 12/16/22 11:59 Pulse 126 H 12/16/22 14:58 Resp 18 12/16/22 14:53 BP 111/79 12/16/22 11:59 Pulse Ox 96 12/16/22 14:53 O2 Del Method 12/16/22 14:53 12/16/22 12/16/22 12/16/22 06:59 14:59 22:59 Intake Total 1000 / 1000 Balance 1000 / 1000 Weight last 48 hrs Weight 136 lb Physical Exam Narrative: General: No acute distress, somewhat short of breath HEENT: Normocephalic atraumatic, pupils equal round reactive to light. The patient appears to be somewhat pale. Neck: Free range of motion and nontender. There is no midline shift. The patient's trachea is midline. There is no thyromegaly. There is no adenopathy that I can appreciate. Lungs: Clear to auscultation. There is no wheezes or rales. She is also clear to percussion. Heart: Regular rate and rhythm without murmurs. There is no S3 or S4. There is no gross clicks or JVD noted. The patient is somewhat tachycardic. Abdomen: Soft, nontender without masses. There are no hernias that I can appreciate. No costovertebral angle tenderness. There is no hepatomegaly. Pelvis: Stable to both AP and medial compression Extremities: There is no off deformity suggestive of a fracture. The patient has good capillary refill both her hands and feet. The patient has 2+ dorsalis pedis and posterior tibialis pulses Neurologic: The patient is awake, alert, oriented ?3. The patient's [place] Coma Scale is 15. The patient moves all 4 extremities without difficulty. The patient's sensation is intact to light touch throughout. Data 12/16/22 12:13 12/16/22 12:13 Micro: Microbiology 12/16/22 13:25 Blood Culture - Preliminary Blood SPECIMEN COLLECTED 12/16/22 13:15 Blood Culture - Preliminary Blood SPECIMEN COLLECTED A&P Assessment and plan (1) Upper GI bleed: This patient most likely has gastritis or peptic ulcer disease. Will allow internal medicine to stabilize this patient overnight. If the patient is doing well in the morning we will schedule the patient for an EGD. Thank you so much for this consult. Coding Level of Care Code Acute Code for [facility] Fwd Diagnoses Upper GI bleed K92.2
[2022-12-16 16:51] LABS: C Reactive Protein 307.6 mg/L (0.0-4.9); Iron 36 ug/dL (37-145); Percent Saturation 24.8 % (20-50); Total Iron Binding Capacity 145 mcg/dl; Unsaturated Iron Binding 109 ug/dL (112-347)
[2022-12-16 16:52] LABS: Hematocrit 29.1 % (37.0-47.0)
[2022-12-16 17:03] LABS: Folate Level 4.1 ng/mL (4.8-37.3)
[2022-12-16 17:04] LABS: Procalcitonin 0.33 ng/mL (0-0.5); Vitamin B12 1809 pg/mL (232-1245)
[2022-12-16 17:12] LABS: INR 1.57 (0.8-1.2)
[2022-12-16 17:16] LABS: Ferritin 2593 ng/mL (15-150)
--- NOTE | 2022-12-16 18:06 | ECG_ITS ---
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 Measurements Intervals [place] Rate: 120 P: 97 RI: 199 QRS: 76 QRSD: 85 T: 84 QT: 419 QTc: 593 Interpretive Statements SINUS TACHYCARDIA Compared to ECG 12/16/2022 14:15:26 No significant changes Electronically Signed On 12-17-2022 8:09:29 CDT by Wilberto Breaux M.D. [id number]
--- NOTE | 2022-12-16 18:10 | PC.NURSE ---
report called to Annalise FRANCO
[2022-12-16 19:55] LABS: Hematocrit 26.8 % (37.0-47.0); Hemoglobin 8.6 g/dL (11.5-15.3)
[2022-12-16 20:18] LABS: Troponin 5 6HR Delta 10.3 ng/L (0-12)
[2022-12-16 20:19] LABS: Troponin 5 6HR 112.3 ng/L (0-10)
[2022-12-16 20:25] LABS: Thyroid Stimulating Hormone 1.47 uIU/mL (0.27-4.20)
[2022-12-16 20:31] LABS: HIV 1 & 2 Antibody Non-Reactive (Non-Reactiv); HIV 1 & 2 Antigen Non-Reactive (Non-Reactiv); Hepatitis A Antibody IgM Non-Reactive (Nonreactive); Hepatitis B Core IgM Non-Reactive (Nonreactive); Hepatitis B Surface Antigen Non-Reactive (Nonreactive); Hepatitis C Virus Antibody Non-Reactive (Nonreactive)
[2022-12-16] MEDS: pantoprazole 40 mg SDV IVP (21:07)
[2022-12-16] MEDS: amitriptyline 25 mg Tablet 50 MG PO (21:07)
[2022-12-16] MEDS: sucralfate 1 gm Tablet PO (21:08)
[2022-12-16] MEDS: pregabalin 100 mg Capsule PO (21:08)
[2022-12-16] MEDS: zolpidem 5 mg Tablet PO (21:08)
[2022-12-16] MEDS: lipase-protease-amylase Capsule 1 EACH PO (21:08)
[2022-12-16] MEDS: lidocaine 1% 5 ML in potassium chloride premix 100 ML 26.25 ML IV (21:09)
[2022-12-16] MEDS: sodium chloride 0.9% 1,000 ML 125 ML IV (21:11)
[2022-12-16] MEDS: piperacillin-tazobactam 3.375 GM in sodium chloride 0.9% (plus) 50 ML IV (21:55)
--- NOTE | 2022-12-16 22:09 | PC.NURSE ---
Patient stated that she does not have an actual allergy to morphine. Patient just does not like the loopy feeling but stated she needs something stronger to take away her headache. Patient also wants to try the morphine again.
[2022-12-16] MEDS: morphine 4 mg/mL SDV 1 mL 2 MG IVP (22:26)
[2022-12-16] MEDS: ondansetron 2 mg/ML SDV 2 mL 4 MG IVP (22:26)
[2022-12-16 22:55] LABS: Add Urine Microscopic? YES; Bacteria Urine 2+ /hpf; Bilirubin Urine 1+ (Negative); Blood Urine Neg (Negative); Glucose Urine UA Norm (Normal); Ketones Urine 1+ (Negative); Leukocyte Esterase Urine Negative (Negative); Nitrate Urine Negative (Negative); Protein Urine 1+ (Negative); RBC Urine 0-4 /hpf (0-2); Specific Gravity, Urine 1.005 (1.005-1.030); Squamous Epithelial Cell Urine 0-4 /hpf (0-5); Urine Appearance Hazy (CLEAR); Urine Color Yellow (Yellow); Urobilinogen Urine 1 mg/dL (Negative); WBC Urine 0-4 /hpf (0-5); pH Urine 5 (5-7)
[2022-12-16 22:56] LABS: Mucus Urine 1+ /hpf
[2022-12-16 22:57] LABS: Add Urine Culture? No
--- NOTE | 2022-12-16 23:23 | PC.NURSE ---
Morphine was administered. Patient had no reactions. Tolerated very well and now comfortable.
[2022-12-16 23:25] LABS: Hematocrit 26.4 % (37.0-47.0); Hemoglobin 8.5 g/dL (11.5-15.3)
[2022-12-16 23:40] LABS: Adenovirus Not Detected (NOT DETECT); Chlamydia Pneumoniae Not Detected (NOT DETECT); Coronavirus 229E,HKU1,NL63,OC4 Not Detected (NOT DETECT); Human Metapneumovirus Not Detected (NOT DETECT); Human Rhinovirus/Enterovirus Not Detected (NOT DETECT); Influenza A Not Detected (NOT DETECT); Influenza A H1 Not Detected (NOT DETECT); Influenza A H1-2009 Not Detected (NOT DETECT); Influenza A H3 Not Detected (NOT DETECT); Influenza B Not Detected (NOT DETECT); Mycoplasma Pneumoniae Not Detected (NOT DETECT); Parainfluenza Virus Type 1 Not Detected (NOT DETECT); Parainfluenza Virus Type 2 Not Detected (NOT DETECT); Parainfluenza Virus Type 3 Not Detected (NOT DETECT); Parainfluenza Virus Type 4 Not Detected (NOT DETECT); Respiratory Syncytial Virus A Not Detected (NOT DETECT); Respiratory Syncytial Virus B Not Detected (NOT DETECT); SARS-COV-2 Not Detected (NOT DETECT)
[2022-12-17] VITALS (106 sets, daily range): BP systolic 93–143; BP diastolic 50–90; PULSE 98–126; RESP 17–115; TEMP 36.8–36.9; O2SAT 87–99
[2022-12-17 04:18] LABS: Basophils # 0.1 10^3/uL (0.0-0.1); Basophils % 0.5 %; Eosinophils # 0.1 10^3/uL (0.0-0.8); Hematocrit 23.7 % (37.0-47.0); Hemoglobin 7.6 g/dL (11.5-15.3); Lymphocytes # 0.6 10^3/uL (0.8-4.8); Lymphocytes % 5.2 %; Mean Corpuscular HGB Conc 32.1 g/dL (30.0-36.0); Mean Corpuscular Hemoglobin 30.8 pg (28.0-34.0); Mean Platelet Volume 10.6 fL (7.4-10.4); Monocytes # 0.9 10^3/uL (0.2-0.9); Monocytes % 8.2 %; Neutrophils % 84.1 %; Nucleated Red Blood Cells % 0 %; Platelet Count 228 10^3/cmm (130-400); Red Blood Count 2.47 10^6/uL (4.1-5.3); Red Cell Distribution Width 15.9 % (12.1-15.1); White Blood Count 11.1 10^3/uL (4.0-10.0)
[2022-12-17 04:41] LABS: Anion Gap 12.9 (5-19); Blood Urea Nitrogen 14 mg/dL (8-23); Calcium 7.6 mg/dL (8.5-10.5); Carbon Dioxide 21 mmol/L (22-29); Chloride 106 mmol/L (98-107); Glomerular Filtration Rate 71.3 mL/min (90-130); Glucose 63 mg/dL (65-115); Magnesium 1.8 mg/dL (1.7-2.3); Osmolality Calculated 281 mOsm/kg (285-295); Phosphorus 2.5 mg/dL (2.5-4.5); Potassium 3.9 mmol/L (3.5-5.1); Sodium 136 mmol/L (136-145)
--- NOTE | 2022-12-17 05:08 | PC.NURSE ---
Physician notified of hgb trending downward. Hgb at 7.6. Physician wants to review the chart. No new orders at this time.
[2022-12-17] MEDS: piperacillin-tazobactam 3.375 GM in sodium chloride 0.9% (plus) 50 ML IV ×3 (05:16→21:28)
[2022-12-17] MEDS: sodium chloride 0.9% 1,000 ML 125 ML IV ×2 (05:17→20:16)
[2022-12-17] MEDS: pantoprazole 40 mg SDV IVP ×2 (08:12→20:10)
[2022-12-17] MEDS: sucralfate 1 gm Tablet PO ×2 (08:12→20:10)
[2022-12-17] MEDS: lipase-protease-amylase Capsule 1 EACH PO ×3 (08:13→20:09)
[2022-12-17] MEDS: pregabalin 100 mg Capsule PO ×3 (08:13→20:10)
[2022-12-17] MEDS: sertraline 50 mg Tablet PO (08:13)
[2022-12-17] MEDS: atorvastatin 40 mg Tablet 10 MG PO (08:13)
--- NOTE | 2022-12-17 09:03 | PC.NURSE ---
Dr. Lomas at bedside, Rx does not have home dose of Nurtec, order for Tramadol 50 mg po x1 received for c/o migraine and to hold second unit of blood if Hgb comes back WNL
[2022-12-17] MEDS: TRAMadol 50 mg Tablet PO (09:10)
--- NOTE | 2022-12-17 09:48 | P.ANESASSM_ITS ---
Pre-Anesthetic Assessment Height/Weight: Height 1.6 m Weight 61.235 kg Temp Pulse Resp BP Pulse Ox O2 Del Method 98.5 F 108 H 25 H 109/61 94 12/17/22 08:20 12/17/22 09:20 12/17/22 09:20 12/17/22 09:20 12/17/22 08:45 12/16/22 19:04 Operation Date: 12/17/22 11:15 Proposed Procedures p EGD(Not Applicable) - Ania Barnes MD Familial anesthetic complications: None Was Beta Memo taken within 24 hours: N/A Was Clonidine taken within 24 hours: N/A Last intake: > 8hrs Social No alcohol and No tobacco Exam alert, oriented x 3, clear to auscultation bilaterally and regular rate & rhythm (HR 102) Airway Mallampati: Class II Dentition: false Pulmonary Chronic Obstructive Pulmonary Disease CV/HEM Anemia, Arrythmia (bradycardia), Coronary Artery Disease, Congestive Heart Failure, Hypertension and Myocardial Infarction (NSTEMI) echo 2022?CONCLUSIONS ?Normal left ventricular size and systolic function, EF 65 %. No ?regional wall motion abnormalities. ?Possibly normal cardiac chamber sizes. ?No gross valvular abnormalities noted. ?Trivial pericardial effusion. ?No intracardiac masses. ?No similar previous studies are available for comparison Chronic Renal Insufficiency GI Gi bleed chronic pancreatitis Metabolic Hyperlipidemia [facility] inflammatory arthritis Anesthetic Plan ASA status: 4 Anesthesia: MAC Risk of > 500 ml blood loss (7ml/kg in children): No Medications/Allergies Home Medications Medication Instructions Recorded Confirmed Last Taken Type aspirin 81 mg tablet,delayed 81 mg PO DAILY 10/26/19 12/16/22 12/16/22 History release fexofenadine 60 mg tablet (Shwetha 60 mg PO BID 05/22/20 12/16/22 12/16/22 History Allergy) albuterol sulfate 2.5 mg/3 mL 2.5 mg inhalation QID PRN 01/10/21 12/16/22 Unknown History (0.083 %) solution for nebulization shortness of breath or wheezing hydralazine 25 mg tablet 25 mg PO BID PRN high blood 06/19/21 12/16/22 Unknown Rx pressure #30 tabs atorvastatin 10 mg tablet 10 mg PO DAILY 90 days #90 tabs 09/24/21 12/16/22 12/15/22 Rx Oxygen #1 ea 01/22/22 12/16/22 Unknown Rx hydroxyzine HCl 25 mg tablet 50 mg PO BID PRN anxiety, sleep, 02/26/22 12/16/22 Unknown Rx itching 30 days #60 tabs ipratropium 20 mcg-albuterol 100 1 puff inhalation QID PRN 02/26/22 12/16/22 Unknown Rx mcg/actuation mist for inhalation shortness of breath or wheezing 30 (Combivent Respimat) days #4 grams [id number] 1 cap PO TID #90 caps 02/26/22 12/16/22 12/16/22 Rx 24,000-76,000-120,000 unit capsule,delayed rel (Creon) albuterol sulfate 90 mcg/actuation 2 puff inhalation Q6H PRN 07/03/22 12/16/22 Unknown Rx aerosol inhaler (Proventil HFA) shortness of breath or wheezing 30 days #18 grams amlodipine 10 mg tablet 5 mg PO DAILY 90 days #90 tabs 07/03/22 12/16/22 12/16/22 Rx benzonatate 100 mg capsule See Rx Instructions .Route 07/03/22 12/16/22 Unknown Rx .COMPLEX #90 caps buspirone 10 mg tablet 10 mg PO BID PRN anxiety #30 tabs 07/03/22 12/16/22 Unknown Rx famotidine 20 mg tablet (Pepcid) 20 mg PO DAILY 90 days #90 tabs 07/03/22 12/16/22 12/16/22 Rx guaifenesin 600 mg tablet, 600 mg PO Q12H PRN congestion 30 07/03/22 12/16/22 Unknown Rx extended release 12 hr days #60 tabs metoprolol tartrate 100 mg tablet 100 mg PO BID 90 days #180 tabs 07/03/22 12/16/22 12/16/22 Rx tizanidine 4 mg tablet See Rx Instructions .Route 07/03/22 12/16/22 Unknown Rx .COMPLEX #120 tabs pregabalin 100 mg capsule 100 mg PO TID 30 days #90 caps 08/28/22 12/16/22 12/16/22 Rx promethazine 25 mg tablet See Rx Instructions .Route 10/02/22 12/16/22 Unknown Rx .COMPLEX #14 tabs hydroxychloroquine 200 mg tablet 200 mg PO BID #60 tabs 10/30/22 12/16/22 12/16/22 Rx amitriptyline 50 mg tablet 50 mg PO BEDTIME 12/16/22 12/16/22 12/15/22 History fluticasone propionate 50 1 spray intranasal Q12H PRN Nasal 12/16/22 12/16/22 Unknown History mcg/actuation nasal Congestion spray,suspension leflunomide 10 mg tablet 10 mg PO DAILY 12/16/22 12/16/22 12/16/22 History rimegepant 75 mg disintegrating 75 mg PO EVERY OTHER DAY 12/16/22 12/16/22 Unknown History tablet (Nurtec ODT) sertraline 50 mg tablet 50 mg PO DAILY 12/16/22 12/16/22 12/16/22 History zolpidem 5 mg tablet 5 mg PO BEDTIME 12/16/22 12/16/22 12/15/22 History Allergies Allergy/AdvReac Type Severity Reaction Status Date / Time celecoxib [From Celebrex] Allergy heart Verified 12/16/22 07:26 palpatations gabapentin Allergy ADR-Shakine Verified 12/16/22 07:26 ss fluoxetine AdvReac Intermediate tachycardia Verified 12/16/22 07:26 methotrexate AdvReac Intermediate lip Verified 12/16/22 07:26 swelling Current Medications Generic Name Dose Route Start Last Admin Trade Name Freq PRN Reason Stop Dose Admin Amitriptyline HCl 50 mg 12/16/22 21:00 12/16/22 21:07 Amitriptyline 25 Mg Tablet PO 50 mg BEDTIME ROSSY Administration Lipase/Protease/Amylase 1 each 12/16/22 21:00 12/17/22 08:13 [id number]-[id number] Capsule PO 1 each TID ROSSY Administration Atorvastatin Calcium 10 mg 12/17/22 09:00 12/17/22 08:13 Atorvastatin 40 Mg Tablet PO 10 mg DAILY ROSSY Administration Sodium Chloride 1,000 mls @ 125 mls/hr 12/16/22 19:47 12/17/22 05:17 Sodium Chloride 0.9% IV 125 mls/hr .Q8H ROSSY Administration Piperacillin Sod/Tazobactam 50 mls @ 12.5 mls/hr 12/17/22 06:00 12/17/22 05:16 Sod 3.375 gm/ Sodium Chloride IV 12.5 mls/hr Q8H ROSSY Administration Protocol Morphine Sulfate 2 mg 12/16/22 19:47 12/16/22 22:26 Morphine 4 Mg/Ml Sdv 1 Ml IVP 2 mg Q4H PRN Administration SEVERE PAIN Ondansetron HCl 4 mg 12/16/22 19:47 12/16/22 22:26 Ondansetron 2 Mg/Ml Sdv 2 Ml IVP 4 mg Q6H PRN Administration NAUSEA AND VOMITING Pantoprazole Sodium 40 mg 12/16/22 20:00 12/17/22 08:12 Pantoprazole 40 Mg Sdv IVP 40 mg Q12H ROSSY Administration Pregabalin 100 mg 12/16/22 21:00 12/17/22 08:13 Pregabalin 100 Mg Capsule PO 100 mg TID ROSSY Administration Sertraline HCl 50 mg 12/17/22 09:00 12/17/22 08:13 Sertraline 50 Mg Tablet PO 50 mg DAILY ROSSY Administration Sucralfate 1 gm 12/16/22 20:00 12/17/22 08:12 Sucralfate 1 Gm Tablet PO 1 gm Q12H ROSSY Administration Zolpidem Tartrate 5 mg 12/16/22 21:00 12/16/22 21:08 Zolpidem 5 Mg Tablet PO 5 mg BEDTIME ROSSY Administration PFSH Anesthesia Medical History Allergic rhinitis Balance disorder Bradycardia with 51-60 beats per minute CAD (coronary artery disease) CHF (congestive heart failure) Chronic migraine Chronic pancreatitis COPD (chronic obstructive pulmonary disease) Dupuytrens contracture Elevated liver enzymes resolved Enrolled in chronic care management ZAYNAB (generalized anxiety disorder) Prozac caused tachycardia. GERD (gastroesophageal reflux disease) High risk medication use HTN (hypertension), benign HCTZ DC due to pancreatitis Hx of acute pancreatitis Due to HCTZ Hyperlipidemia Immunization counseling Inflammatory arthritis Insomnia Was previously on Ambien 10 mg. Weaned down to 5 mg. Lumbosacral spondylosis Memory loss Polyarthralgia Weakness Surgical History H/O section H/O foot surgery H/O tubal ligation H/O: hysterectomy S/P cataract surgery S/P cholecystectomy Social History Smoking and tobacco status: former smoker Quit status (tobacco): has quit using tobacco Year quit tobacco: 2000 Alcohol intake: current Alcohol intake frequency: holidays/special occasions only Alcohol type: wine Desire information about alcohol rehabilitation?: No Desire information about substance/drug rehabilitation?: No Current gender identity: Female Female Reproductive History Spontaneous abortions: No Data Anesthesia 12/17/22 03:34 12/17/22 03:34 Short CBC 12/16/22 12/16/22 12/16/22 Range/Units 12:13 16:45 19:34 WBC 18.7 H (4.0-10.0) 10^3/uL Hgb 9.7 L 9.0 L 8.6 L (11.5-15.3) g/dL Hct 30.3 L 29.1 L 26.8 L (37.0-47.0) % MCV 95.9 (81-99) fl Plt Count 332 (130-400) 10^3/cmm Neut % (Auto) 89.5 % Neut # (Auto) 16.73 H (1.8-7.7) 10^3/uL 12/16/22 12/17/22 Range/Units 23:17 03:34 WBC 11.1 H (4.0-10.0) 10^3/uL Hgb 8.5 L 7.6 L (11.5-15.3) g/dL Hct 26.4 L 23.7 L (37.0-47.0) % MCV 96.0 (81-99) fl Plt Count 228 D (130-400) 10^3/cmm Neut % (Auto) 84.1 % Neut # (Auto) 9.30 H (1.8-7.7) 10^3/uL BMP 12/16/22 12/17/22 12:13 03:34 Sodium 133 L 136 Potassium 3.1 L 3.9 Chloride 96 L 106 Carbon Dioxide 21 L 21 L BUN 16 14 Creatinine 0.8 0.8 Glucose 119 H 63 L Calcium 8.3 L 7.6 L Cardiac Enzymes 12/16/22 12/16/22 12/16/22 Range/Units 12:13 12:13 14:18 Creatine Kinase 18 L (26-192) U/L Troponin T Baseline 102 H* (0-10) ng/L Troponin T 120 Minute 100.4 H (0-10) ng/L Delta Troponin T -1.6 L (0-10) ABS# Troponin T Hi Sens 6Hr (0-10) ng/L Troponin T Hi Sens 6Hr Delta (0-12) ng/L 12/16/22 Range/Units 19:34 Creatine Kinase (26-192) U/L Troponin T Baseline (0-10) ng/L Troponin T 120 Minute (0-10) ng/L Delta Troponin T (0-10) ABS# Troponin T Hi Sens 6Hr 112.3 H (0-10) ng/L Troponin T Hi Sens 6Hr Delta 10.3 (0-12) ng/L Liver Function 12/16/22 Range/Units 12:13 Total Bilirubin 0.4 (0.15-1.2) mg/dL AST 47 H (0-32) U/L ALT 29 (0-33) U/L Alkaline Phosphatase 132 H (35-105) U/L Albumin 2.4 L (3.5-5.2) g/dL Urine 12/16/22 Range/Units 21:02 Urine Color Yellow (Yellow) Urine Appearance Hazy A (CLEAR) Urine pH 5 (5-7) Ur Specific [place] 1.005 (1.005-1.030) Urine Protein 1+ H (Negative) Urine Glucose (UA) Norm (Normal) Urine Ketones 1+ H (Negative) Urine Nitrate Negative (Negative) Urine Bilirubin 1+ H (Negative) Ur Leukocyte Esterase Negative (Negative) Urine RBC 0-4 H (0-2) /hpf Urine WBC 0-4 H (0-5) /hpf Blood Bank 12/16/22 19:34 Blood Type O Positive Rho(D) Type Positive Antibody Screen Negative COVID Results 12/16/22 12/16/22 21:20 21:20 Coronavirus 229E (PCR) Cancelled Not detected SARS-CoV-2 (PCR) Cancelled Not detected Coags 12/16/22 12/16/22 12/16/22 12:13 12:13 16:45 PT 19.30 H INR 1.57 H D-Dimer 5.76 H C-Reactive Protein 307.6 H ABG 12/16/22 12:12 Specimen Type Arterial Sample Site Brachial, right ABG pH 7.49 H ABG pCO2 30.9 L ABG pO2 57.5 L ABG HCO3 23.5 ABG O2 Saturation 91.0 ABG Base Excess 0.6 A-a O2 Gradient 6.7 O2 Delivery Device None FiO2 21.0 Microbiology 12/16/22 13:25 Blood Culture - Preliminary Blood SPECIMEN COLLECTED 12/16/22 13:15 Blood Culture - Preliminary Blood SPECIMEN COLLECTED Cardiac Studies: Echocardiogram 12/17/22
[2022-12-17 11:53] LABS: Erythrocyte Sedimentation Rate 74 mm/hr (0-15)
[2022-12-17 11:55] LABS: Hemoglobin 10.7 g/dL (11.5-15.3)
--- NOTE | 2022-12-17 12:03 | P.PN_ITS ---
Subjective Subjective: Patient was seen this morning, she continues to complain of weakness, fatigue, tiredness, she is having a headache Vitals/I&O/Wt Last Vital Signs Temp 98.5 F 12/17/22 08:20 Pulse 108 H 12/17/22 09:20 Resp 25 H 12/17/22 09:20 BP 109/61 12/17/22 09:20 Pulse Ox 94 12/17/22 08:45 O2 Del Method 12/16/22 19:04 12/16/22 12/17/22 12/17/22 22:59 06:59 14:59 Intake Total 300 / 1300 1388.958 / 2688.958 0 / 0 Output Total 200 / 200 Balance 100 / 1100 1388.958 / 2488.958 0 / 0 Weight last 48 hrs Weight 61.235 kg Weight 61.689 kg Physical Exam Const: COMMON NORMALS: no acute distress and patient oriented x3 HENMT: COMMON NORMALS: normocephalic HEAD & SCALP: normocephalic Resp: COMMON NORMALS: normal respiratory effort, No retractions, No use of accessory muscles and clear to auscultation bilaterally AUSCULTATION: clear to auscultation bilaterally Cardio: COMMON NORMALS: regular rate, regular rhythm, S1 normal heart sound present and S2 normal heart sound present RATE: regular rate RHYTHM: regular rhythm HEART SOUNDS: S1 normal heart sound present and S2 normal heart sound present GI: COMMON NORMALS: Normal to inspection, nondistended, normoactive bowel sounds present and non-tender Extremity: COMMON NORMALS: no pedal edema Neuro: COMMON NORMALS: patient oriented x3 Psych: COMMON NORMALS: mental status grossly normal Data 12/17/22 03:34 12/17/22 03:34 Micro: Microbiology 12/16/22 13:25 Blood Culture - Preliminary Blood SPECIMEN COLLECTED 12/16/22 13:15 Blood Culture - Preliminary Blood SPECIMEN COLLECTED A&P Assessment and plan (1) Upper GI bleed: (2) NSTEMI (non-ST elevated myocardial infarction): (3) Hypokalemia: (4) CKD (chronic kidney disease): Qualifiers: Chronic kidney disease stage: stage 3 (moderate) Chronic kidney disease stage 3 subtype: stage 3a (GFR 45-59) Qualified Code(s): N18.31 - Chronic kidney disease, stage 3a (5) CHF (congestive heart failure): Qualifiers: Heart failure type: diastolic Heart failure chronicity: chronic Qualified Code(s): I50.32 - Chronic diastolic (congestive) heart failure (6) CAD (coronary artery disease): Qualifiers: Coronary Disease-Associated Artery/Lesion type: [place] artery [place] vs. transplanted heart: [place] heart Associated angina: without angina Qualified Code(s): I25.10 - Atherosclerotic heart disease of [place] coronary artery without angina pectoris (7) Hyperlipidemia: Qualifiers: Hyperlipidemia type: mixed hyperlipidemia Qualified Code(s): E78.2 - Mixed hyperlipidemia (8) GERD (gastroesophageal reflux disease): Qualifiers: Esophagitis presence: without esophagitis Qualified Code(s): K21.9 - Gastro-esophageal reflux disease without esophagitis (9) HTN (hypertension), benign: (10) Leukocytosis: Plan GI bleed -Concerns for upper GI bleed -Is on aspirin, steroid -Hemoccult positive stools, complains of black tarry stools Plan -Admit to ICU -Hemoglobin 7.6, status post 1 unit PRBC, monitor hemoglobin -IV fluids -Protonix -Carafate -Monitor hemoglobin every 4 hours -Monitor hemodynamics closely -Currently n.p.o. -General surgery consulted for EGD Acute anemia -Hemoglobin 7.6 -Patient's iron 36, ferritin 2593, TIBC 1.5, iron binding 109 Folic acid deficiency Will replace Hypokalemia -Resolving Non-ST elevation ND -No complaints of chest pain -EKG no acute ST-T wave changes -Antiplatelet and anticoagulant therapy relatively contraindicated currently given GI bleed -I highly suspect her troponin elevation is likely secondary to GI bleed as above however cannot rule out underlying cardiac etiology given her history of CAD -Continue telemetry monitoring -Continue statin -Cardiac echo Normal left ventricular size and systolic function, EF 65 %. No ?regional wall motion abnormalities. ?Possibly normal cardiac chamber sizes. ?No gross valvular abnormalities noted. ?Trivial pericardial effusion. ?No intracardiac masses. ?No similar previous studies are available for comparison Leukocytosis, complaints of fevers, chills -Patient has immunocompromise state, as she is on Plaquenil, leflunomide -On examination, no wheezing on exam CT angiogram did not show any significant radiographic evidence of pneumonia she uses 2 L at baseline currently on 2 L -UA not indicative UTI -Does complain of diarrhea, will do stool studies -CT scan abdomen and pelvis no acute findings -CT angiogram of the chest Interstitial thickening and peripheral areas of irregular consolidation predominantly in the lower lung hicks. Suspect superimposed pneumonitis on chronic areas of emphysema and probable honeycombing. -Possible pneumonia? -Zosyn for now -MRSA nares PCR -Sputum studies CAD, as above COPD, not in exacerbation, as above Will admit to ICU DNR/DNI, agreeable to elective intubation for procedure if required SCDs for DVT prophylaxis Attestations Medical Necessity Statement*: Patient requires hospitalization for GI bleed, acute anemia, folic acid deficiency, leukocytosis, Diagnoses Upper GI bleed K92.2 NSTEMI (non-ST elevated myocardial infarction) I21.4 Hypokalemia E87.6 CKD (chronic kidney disease) N18.31 Chronic kidney disease stage: stage 3 (moderate) Chronic kidney disease stage 3 subtype: stage 3a (GFR 45-59) CHF (congestive heart failure) I50.32 Heart failure type: diastolic Heart failure chronicity: chronic CAD (coronary artery disease) I25.10 Coronary Disease-Associated Artery/Lesion type: [place] artery [place] vs. transplanted heart: [place] heart Associated angina: without angina Hyperlipidemia E78.2 Hyperlipidemia type: mixed hyperlipidemia GERD (gastroesophageal reflux disease) K21.9 Esophagitis presence: without esophagitis HTN (hypertension), benign I10 Leukocytosis D72.829
[2022-12-17 12:44] LABS: INR 1.43 (0.8-1.2)
--- NOTE | 2022-12-17 13:21 | PM.PN ---
Subjective Subjective: This patient's been hemodynamically stable overnight. The patient states that she feels better this morning. She still appears somewhat pale Vitals/I&O/Wt Last Vital Signs Temp 98.5 F 12/17/22 08:20 Pulse 108 H 12/17/22 09:20 Resp 25 H 12/17/22 09:20 BP 109/61 12/17/22 09:20 Pulse Ox 94 12/17/22 08:45 O2 Del Method 12/16/22 19:04 12/16/22 12/17/22 12/17/22 22:59 06:59 14:59 Intake Total 300 / 1300 1388.958 / 2688.958 0 / 0 Output Total 200 / 200 Balance 100 / 1100 1388.958 / 2488.958 0 / 0 Weight last 48 hrs Weight 135 lb Weight 136 lb Physical Exam Narrative: General: No acute distress Lungs: Clear to auscultation and percussion Heart: Regular rate and rhythm somewhat tachycardic Abdomen: Soft, nontender without masses. Extremities: No obvious deformities. There is no clubbing cyanosis or edema Neurologic: The patient is awake, alert, oriented x3. The patient's [place] Coma Scale is 15. The patient's sensation is intact to light touch throughout. Data 12/17/22 11:40 12/17/22 03:34 Micro: Microbiology 12/16/22 13:25 Blood Culture - Preliminary Blood SPECIMEN COLLECTED 12/16/22 13:15 Blood Culture - Preliminary Blood SPECIMEN COLLECTED Attestation for Other Data: I personally reviewed and interpreted the following: (All laboratories have been examined) A&P Assessment and plan (1) Upper GI bleed: I just completed EEG pyloric gastritis. There was no ulcer that I could see. The patient really did not have a significant bleeding source. We will consider cleaning the patient out and performing a colonoscopy on the patient tomorrow morning. Attestations Medical Necessity Statement*: Anemia Coding Level of Care Code 26143 Diagnoses Upper GI bleed K92.2
[2022-12-17] MEDS: peg /e-lyte soln 4,000 mL Btl 4000 ML PO (13:42)
--- NOTE | 2022-12-17 13:46 | ANE.PACU2 ---
Inpatient post-anesthesia follow up: Airway intact: Yes Vital signs: Temperature 98.5 F Pulse Rate 126 Respiratory Rate 22 Blood Pressure 118/65 Pulse Oximetry 91 Oxygen Delivery Me thod Room Air Oxygen Flow Rate Fraction of Inspir ed Oxygen Hydration adequate: Yes Nausea and vomiting: No Pain level: 1 Mental status: Baseline
--- NOTE | 2022-12-17 15:23 | PC.PHAR ---
PHARMACY TO DOSE VANCOMYCIN USING THE PATIENT'S CURRENT WEIGHT AND CrCl of 59.43, a dose of 1250mg every 24 hours was calculated to give you a predicted peak of 40.3 mcg/ml and a trough of 12.47 mcg/ml. Will continue to monitor this patient moving forward and will place a trough order before the 4th dose is administered. Let us know if there is anything else we can help with. Thanks, Ryne Curran, Pharm.D
--- NOTE | 2022-12-17 15:55 | USCV_ITS ---
Chery Tsang Age: 67 Gender: F : 1955 Exam Date: 12/17/2022 04:31 Ordering Phys: Harlan Lomas MD Technologist: ANTONIA Exam Location: [facility] Indication: chronic SOB, palpitations, denies CP, O2 dependent 2L at home. NSTEMI? BP: 98 / 55 HR: 108 Rhythm: Sinus tachycardia Technical Quality: Technically difficult study MEASUREMENTS (Male / Female) Normal Values 2D ECHO LV Diastolic Diameter PLAX 4.2 cm 4.2 - 5.9 / 3.9 - 5.3 cm LV Systolic Diameter PLAX 2.4 cm IVS Diastolic Thickness 1.1 cm 0.6 - 1.0 / 0.6 - 0.9 cm IVS Systolic Thickness 1.5 cm LVPW Diastolic Thickness 1.1 cm 0.6 - 1.0 / 0.6 - 0.9 cm LVPW Systolic Thickness 1.4 cm LVOT Diameter 1.8 cm LV Ejection Fraction 2D Teich 74.7 % LV Ejection Fraction MOD 2C 69.4 % LV Ejection Fraction 2C AL 69.4 % LA Diameter 2.3 cm LA Width 2.8 cm LA Height 3.8 cm RA Width 2.8 cm RA Height 3.2 cm Aorta at Sinotubular Diameter 2.5 cm IVC Diameter 1.5 cm DOPPLER AV Peak Velocity 129.0 cm/s LVOT Peak Velocity 88.0 cm/s AV Area Cont Eq vti 1.7 cm squared AV Area Cont Eq pk 1.8 cm squared MV Area PHT 4.2 cm squared Mitral E to A Ratio 1.0 MV E' Velocity 64.5 cm/s Mitral E to MV E' Ratio 7.6 Mitral E to LV E' Lateral Ratio 8.7 Mitral E to LV E' Septal Ratio 6.7 TV Peak E Velocity 67.0 cm/s PV Peak Velocity 115.0 cm/s RV Acceleration Time 0.1 s RV Ejection Time 0.3 s RV AcT/ET 0.4 FINDINGS Left Ventricle Normal left ventricular size and systolic function, EF 65 %. No regional wall motion abnormalities. Right Ventricle The right ventricle is normal in size and function. Right Atrium The right atrium is normal in size. Left Atrium The left atrium is normal in size. Mitral Valve No gross abnormalities noted Aortic Valve No gross abnormalities noted Tricuspid Valve No gross abnormalities noted Pulmonic Valve No gross abnormalities noted Pericardium Trivial pericardial effusion. Aorta Normal ascending aorta dimension. IVC Inferior vena cava not visualized. CONCLUSIONS Normal left ventricular size and systolic function, EF 65 %. No regional wall motion abnormalities. Possibly normal cardiac chamber sizes. No gross valvular abnormalities noted. Trivial pericardial effusion. No intracardiac masses. No similar previous studies are available for comparison Dr Hawa Villalobos MD FACC (Electronically Signed) Final Date: 17 December 2022 08:59 S
[2022-12-17] MEDS: folic acid 1 mg Tablet PO (17:47)
[2022-12-17] MEDS: vancomycin 1,250 MG/250 ML PIGGYBACK 250 MG IV (17:48)
[2022-12-17 18:26] LABS: Basophils # 0.1 10^3/uL (0.0-0.1); Basophils % 0.4 %; Eosinophils # 0.2 10^3/uL (0.0-0.8); Eosinophils % 1.3 %; Hematocrit 32.3 % (37.0-47.0); Hemoglobin 10.3 g/dL (11.5-15.3); Lymphocytes # 0.4 10^3/uL (0.8-4.8); Lymphocytes % 2.8 %; Mean Corpuscular HGB Conc 31.9 g/dL (30.0-36.0); Mean Corpuscular Hemoglobin 30.2 pg (28.0-34.0); Mean Corpuscular Volume 94.7 fl (81-99); Mean Platelet Volume 9.7 fL (7.4-10.4); Monocytes # 0.9 10^3/uL (0.2-0.9); Monocytes % 6.3 %; Neutrophils # 11.94 10^3/uL (1.8-7.7); Nucleated Red Blood Cells % 0 %; Platelet Count 238 10^3/cmm (130-400); Red Blood Count 3.41 10^6/uL (4.1-5.3); Red Cell Distribution Width 17.4 % (12.1-15.1); White Blood Count 13.6 10^3/uL (4.0-10.0)
--- NOTE | 2022-12-17 19:04 | PC.NURSE ---
uneventful shift, pt to have colonoscopy in AM
[2022-12-17] MEDS: amitriptyline 25 mg Tablet 50 MG PO (20:10)
[2022-12-17] MEDS: zolpidem 5 mg Tablet PO (20:10)
--- NOTE | 2022-12-17 21:43 | PC.NURSE ---
Addendum entered by Brianna Chadwick RN 12/17/22 23:06: Dr. Barnes in ICU to attempt to talk to patient, but patient sleeping at this time. Informed Dr. Barnes about discussion below. Dr. Barnes ordered to not perform molassess enema or any type of enema. Dr. Barnes mentioned he would cancel colonoscopy. No further orders at this time. Original Note: Patient refuses to drink more of the prescribed Golytely. Said it makes her stomach feel sick . Offered to give her PRN Zofran. Patient declined and stated regardless she will not drink any more . Informed patient her bowel movements are still not clear and reminded she is supposed to go for colonoscopy in the morning. Patient aware. Reaching out to Hospitalist on board for further orders at this time.
[2022-12-18] VITALS (25 sets, daily range): BP systolic 104–147; BP diastolic 70–88; PULSE 73–126; RESP 15–29; TEMP 36.4–36.9; O2SAT 77–97; BMI 25.7
[2022-12-18 04:08] LABS: Basophils # 0.1 10^3/uL (0.0-0.1); Basophils % 0.5 %; Eosinophils # 0.2 10^3/uL (0.0-0.8); Eosinophils % 2.1 %; Lymphocytes # 0.5 10^3/uL (0.8-4.8); Lymphocytes % 4.2 %; Mean Corpuscular HGB Conc 32.3 g/dL (30.0-36.0); Mean Corpuscular Hemoglobin 30.1 pg (28.0-34.0); Mean Corpuscular Volume 93.4 fl (81-99); Mean Platelet Volume 10.5 fL (7.4-10.4); Monocytes # 0.8 10^3/uL (0.2-0.9); Monocytes % 7.4 %; Neutrophils # 9.38 10^3/uL (1.8-7.7); Neutrophils % 84.6 %; Nucleated Red Blood Cells % 0 %; Platelet Count 248 10^3/cmm (130-400); Red Blood Count 3.32 10^6/uL (4.1-5.3); Red Cell Distribution Width 17.6 % (12.1-15.1); White Blood Count 11.1 10^3/uL (4.0-10.0)
[2022-12-18 04:31] LABS: Anion Gap 15.5 (5-19); Blood Urea Nitrogen 11 mg/dL (8-23); Calcium 8.1 mg/dL (8.5-10.5); Carbon Dioxide 19 mmol/L (22-29); Chloride 106 mmol/L (98-107); Glomerular Filtration Rate 83.2 mL/min (90-130); Glucose 49 mg/dL (65-115); Magnesium 1.7 mg/dL (1.7-2.3); Osmolality Calculated 281 mOsm/kg (285-295); Phosphorus 2.4 mg/dL (2.5-4.5); Potassium 3.5 mmol/L (3.5-5.1); Sodium 137 mmol/L (136-145)
[2022-12-18] MEDS: piperacillin-tazobactam 3.375 GM in sodium chloride 0.9% (plus) 50 ML IV ×3 (06:20→21:39)
[2022-12-18] MEDS: sertraline 50 mg Tablet PO (08:16)
[2022-12-18] MEDS: folic acid 1 mg Tablet PO ×2 (08:16→17:14)
[2022-12-18] MEDS: atorvastatin 40 mg Tablet 10 MG PO (08:16)
[2022-12-18] MEDS: sucralfate 1 gm Tablet PO ×2 (08:16→20:37)
[2022-12-18] MEDS: lipase-protease-amylase Capsule 1 EACH PO ×3 (08:16→20:58)
[2022-12-18] MEDS: pantoprazole 40 mg SDV IVP ×2 (08:16→20:48)
[2022-12-18] MEDS: pregabalin 100 mg Capsule PO ×3 (08:16→20:58)
[2022-12-18 08:18] LABS: Glucose Point of Care 47 mg/dL (70-110)
[2022-12-18] MEDS: metoprolol tartrate 25 mg Tablet PO ×2 (08:18→20:37)
--- NOTE | 2022-12-18 08:31 | XR_ITS ---
WS: [id number] XR chest 1V portable [id number] REASON FOR EXAM: SOB FINDINGS: Reticular interstitial and groundglass opacities in the right lower lung is relatively unchanged comp ared to 12/16/2022. Compared to the previous examination of 12/17/2019 3V reticular and groundglass opacities in the left l ower lung have become more confluent and dense possibly secondary to atelectasis. No other significant interval change or new finding is noted. XR/XR chest 1V portable [id number] IMPRESSION: Stable abnormal right lung with interval change in the left lung as above.
[2022-12-18] MEDS: FUROsemide 10 mg/mL SDV 4mL 40 MG IVP (08:49)
[2022-12-18] MEDS: ipratropium-albuterol 3 mL Neb INHALATION (09:02)
--- NOTE | 2022-12-18 13:03 | PM.PN ---
Subjective Subjective: Patient refused prep. Can be scoped as an outpatient. Would get her scheduled with Dr. Morrison. Would keep the patient on protonix and carafate. Please reconsult for questions or concerns. Vitals/I&O/Wt Last Vital Signs Temp 98.4 F 12/18/22 04:00 Pulse 120 H 12/18/22 09:05 Resp 28 H 12/18/22 09:02 BP 134/84 12/18/22 08:00 Pulse Ox 93 12/18/22 09:02 O2 Del Method 12/18/22 09:02 12/17/22 12/18/22 12/18/22 22:59 06:59 14:59 Intake Total 700 / 2100 350 / 2450 1050 / 1050 Balance 700 / 2100 350 / 2450 1050 / 1050 Weight last 48 hrs Weight 145 lb 8.081 oz Weight 135 lb Data 12/18/22 03:29 12/18/22 03:29 Micro: Microbiology 12/16/22 21:02 Urine Culture - Preliminary Urine,Voided 12/18/22 08:35 Stool Lactoferrin - Final Stool Occult Blood (FIT) - Final 12/16/22 13:25 Blood Culture - Preliminary Blood NEGATIVE TO DATE 12/16/22 13:15 Blood Culture - Preliminary Blood NEGATIVE TO DATE Attestations Medical Necessity Statement*: anemia Coding Level of Care Code Acute Code for Chg Fwd
[2022-12-18] MEDS: vancomycin 1,250 MG/250 ML PIGGYBACK 250 MG IV (14:51)
--- NOTE | 2022-12-18 16:01 | P.PN_ITS ---
Subjective Subjective: Patient was seen this morning, she had hypoglycemia episode overnight, this morning her complaint of shortness of breath and wheezing, and feeling weak fatigued and tired, she does not want to take the GoLytely, for her colonoscopy, Vitals/I&O/Wt Last Vital Signs Temp 98.4 F 12/18/22 04:00 Pulse 106 H 12/18/22 13:00 Resp 17 12/18/22 13:00 BP 132/74 12/18/22 12:00 Pulse Ox 77 L 12/18/22 13:00 O2 Del Method 12/18/22 09:02 12/18/22 12/18/22 12/18/22 06:59 14:59 22:59 Intake Total 350 / 2450 1250 / 1250 Balance 350 / 2450 1250 / 1250 Weight last 48 hrs Weight 66 kg Weight 61.235 kg Physical Exam Const: COMMON NORMALS: no acute distress and patient oriented x3 Neck/C-Spine: COMMON NORMALS: no JVD Resp: COMMON NORMALS: normal respiratory effort, No retractions and No use of accessory muscles AUSCULTATION: wheezes Cardio: COMMON NORMALS: no JVD, regular rate, regular rhythm, S1 normal heart sound present and S2 normal heart sound present RATE: regular rate RHYTHM: regular rhythm HEART SOUNDS: S1 normal heart sound present and S2 normal heart sound present GI: COMMON NORMALS: Normal to inspection, nondistended, normoactive bowel sounds present and non-tender Extremity: COMMON NORMALS: no pedal edema Neuro: COMMON NORMALS: patient oriented x3 Psych: COMMON NORMALS: mental status grossly normal Data 12/18/22 03:29 12/18/22 03:29 Micro: Microbiology 12/17/22 18:52 MRSA Culture - Final Nose 12/16/22 21:02 Urine Culture - Preliminary Urine,Voided 12/18/22 08:35 Stool Lactoferrin - Final Stool Occult Blood (FIT) - Final 12/16/22 13:25 Blood Culture - Preliminary Blood NEGATIVE TO DATE 12/16/22 13:15 Blood Culture - Preliminary Blood NEGATIVE TO DATE A&P Assessment and plan (1) Upper GI bleed: (2) NSTEMI (non-ST elevated myocardial infarction): (3) Hypokalemia: (4) CKD (chronic kidney disease): Qualifiers: Chronic kidney disease stage: stage 3 (moderate) Chronic kidney disease stage 3 subtype: stage 3a (GFR 45-59) Qualified Code(s): N18.31 - Chronic kidney disease, stage 3a (5) CHF (congestive heart failure): Qualifiers: Heart failure type: diastolic Heart failure chronicity: chronic Qualified Code(s): I50.32 - Chronic diastolic (congestive) heart failure (6) CAD (coronary artery disease): Qualifiers: Coronary Disease-Associated Artery/Lesion type: [place] artery [place] vs. transplanted heart: [place] heart Associated angina: without angina Qualifi ed Code(s): I25.10 - Atherosclerotic heart disease of [place] coronary artery without angina pectoris (7) Hyperlipidemia: Qualifiers: Hyperlipidemia type: mixed hyperlipidemia Qualified Code(s): E78.2 - Mixed hyperlipidemia (8) GERD (gastroesophageal reflux disease): Qualifiers: Esophagitis presence: without esophagitis Qualified Code(s): K21.9 - Gastro-esophageal reflux disease without esophagitis (9) HTN (hypertension), benign: (10) Leukocytosis: (11) Pneumonia: Plan GI bleed -Concerns for upper GI bleed -Is on aspirin, steroid -Hemoccult positive stools, complains of black tarry stools -Normotensive, hemoglobin has stabilized at 10.1, status post 1 unit PRBC -EGD showed gastritis -Patient declines drinking prep for colonoscopy Plan -We will moved to general medical floors -Monitor hemoglobin -Protonix -Carafate -Monitor hemodynamics closely -Advance diet -General surgery consulted for EGD Acute anemia -Hemoglobin 10.1 -Patient's iron 36, ferritin 2593, TIBC 1.5, iron binding 109 Folic acid deficiency Will replace Hypokalemia -Resolving Non-ST elevation MT -No complaints of chest pain -EKG no acute ST-T wave changes -Antiplatelet and anticoagulant therapy relatively contraindicated currently giv en GI bleed -I highly suspect her troponin elevation is likely secondary to GI bleed as above however cannot rule out underlying cardiac etiology given her history of CAD -Continue telemetry monitoring -Continue statin -Cardiac echo Normal left ventricular size and systolic function, EF 65 %. No ?regional wall motion abnormalities. ?Possibly normal cardiac chamber sizes. ?No gross valvular abnormalities noted. ?Trivial pericardial effusion. ?No intracardiac masses. ?No similar previous studies are available for comparison Leukocytosis, complaints of fevers, chills -Likely secondary to pneumonia -Patient has immunocompromise state, as she is on Plaquenil, leflunomide -On examination, no wheezing on exam CT angiogram did not show any significant radiographic evidence of pneumonia she uses 2 L at baseline currently on 2 L -UA not indicative UTI -Does complain of diarrhea, will do stool studies -CT scan abdomen and pelvis no acute findings -CT angiogram of the chest Interstitial thickening and peripheral areas of irregular consolidation predominantly in the lower lung hicks. Suspect superimposed pneumonitis on chronic areas of emphysema and probable honeycombing. -Continue vancomycin Zosyn for now -We will give Lasix 40 mg IV push once -We will give 1 dose of Solu-Medrol -MRSA nares PCR -Sputum studies CAD, as above COPD, not in exacerbation, as above Moved to general medical floors DNR/DNI, agreeable to elective intubation for procedure if required SCDs for DVT prophylaxis Attestations Medical Necessity Statement*: Patient requires hospitalization for GI bleed, pneumonia, wheezing Diagnoses Upper GI bleed K92.2 NSTEMI (non-ST elevated myocardial infarction) I21.4 Hypokalemia E87.6 CKD (chronic kidney disease) N18.31 Chronic kidney disease stage: stage 3 (moderate) Chronic kidney disease stage 3 subtype: stage 3a (GFR 45-59) CHF (congestive heart failure) I50.32 Heart failure type: diastolic Heart failure chronicity: chronic CAD (coronary artery disease) I25.10 Coronary Disease-Associated Artery/Lesion type: [place] artery [place] vs. transplanted heart: [place] heart Associated angina: without angina Hyperlipidemia E78.2 Hyperlipidemia type: mixed hyperlipidemia GERD (gastroesophageal reflux disease) K21.9 Esophagitis presence: without esophagitis HTN (hypertension), benign I10 Leukocytosis D72.829 Pneumonia J18.9
--- NOTE | 2022-12-18 17:15 | PC.NURSE ---
Uneventful shift, patient resting in bed most of shift. Did get up and work with therapy, able to walk around unit some.
[2022-12-18] MEDS: acetaminophen 325 mg Tablet 650 MG PO (20:36)
[2022-12-18] MEDS: zolpidem 5 mg Tablet PO (20:37)
[2022-12-18] MEDS: amitriptyline 25 mg Tablet 50 MG PO (20:37)
[2022-12-18] MEDS: morphine 4 mg/mL SDV 1 mL 2 MG IVP (21:18)
[2022-12-18] MEDS: ondansetron 2 mg/ML SDV 2 mL 4 MG IVP (22:01)
[2022-12-19 03:48] VITALS: BP 106/65; PULSE 86; RESP 18; TEMP 36.8; O2SAT 93
[2022-12-19 04:22] LABS: Hematocrit 30.8 % (37.0-47.0); Lymphocytes # 0.3 10^3/uL (0.8-4.8); Lymphocytes % 2.7 %; Mean Corpuscular HGB Conc 32.5 g/dL (30.0-36.0); Mean Corpuscular Hemoglobin 29.8 pg (28.0-34.0); Mean Corpuscular Volume 91.7 fl (81-99); Mean Platelet Volume 10.1 fL (7.4-10.4); Monocytes # 0.3 10^3/uL (0.2-0.9); Monocytes % 2.9 %; Neutrophils # 10.17 10^3/uL (1.8-7.7); Neutrophils % 93.5 %; Nucleated Red Blood Cells % 0 %; Platelet Count 281 10^3/cmm (130-400); Red Blood Count 3.36 10^6/uL (4.1-5.3); Red Cell Distribution Width 16.7 % (12.1-15.1); White Blood Count 10.9 10^3/uL (4.0-10.0)
[2022-12-19 04:49] LABS: Anion Gap 16.3 (5-19); Blood Urea Nitrogen 14 mg/dL (8-23); Carbon Dioxide 24 mmol/L (22-29); Chloride 104 mmol/L (98-107); Glomerular Filtration Rate 62.3 mL/min (90-130); Glucose 105 mg/dL (65-115); Magnesium 1.5 mg/dL (1.7-2.3); Osmolality Calculated 293 mOsm/kg (285-295); Phosphorus 3.5 mg/dL (2.5-4.5); Potassium 3.3 mmol/L (3.5-5.1); Sodium 141 mmol/L (136-145)
[2022-12-19 06:00] VITALS: PULSE 100
[2022-12-19] MEDS: piperacillin-tazobactam 3.375 GM in sodium chloride 0.9% (plus) 50 ML IV (06:19)
[2022-12-19 08:00] VITALS: BP 108/68; PULSE 103; RESP 16; TEMP 36.7; O2SAT 91
[2022-12-19] MEDS: lipase-protease-amylase Capsule 1 EACH PO (08:28)
[2022-12-19] MEDS: folic acid 1 mg Tablet PO (08:28)
[2022-12-19] MEDS: metoprolol tartrate 25 mg Tablet PO (08:28)
[2022-12-19] MEDS: pantoprazole 40 mg SDV IVP (08:28)
[2022-12-19] MEDS: atorvastatin 40 mg Tablet 10 MG PO (08:28)
[2022-12-19] MEDS: sertraline 50 mg Tablet PO (08:28)
[2022-12-19] MEDS: pregabalin 100 mg Capsule PO (08:28)
[2022-12-19] MEDS: docusate sodium 100 mg Capsule PO (08:29)
[2022-12-19] MEDS: sucralfate 1 gm Tablet PO (08:29)
[2022-12-19] MEDS: lidocaine 1% 5 ML in potassium chloride premix 100 ML 26.25 ML IV (08:34)
[2022-12-19] MEDS: magnesium sulfate premix 2 GM/50 ML PIGGYBACK IV (08:35)
--- NOTE | 2022-12-19 11:54 | P.DS_ITS ---
Discharge Providers Date of Admission: 12/16/22 19:47 Date of Discharge: December 19, 2022 Attending Provider at Admission: Harlan Lomas MD Attending Provider at Discharge: Harlan Lomas MD Primary Care Provider: Deidra Cid MD Diagnoses at Discharge Discharge Diagnosis (1) Upper GI bleed: Status: Acute (2) NSTEMI (non-ST elevated myocardial infarction): Status: Acute (3) Hypokalemia: Status: Acute (4) CKD (chronic kidney disease): Status: Acute Qualifiers: Chronic kidney disease stage: stage 3 (moderate) Chronic kidney disease stage 3 subtype: stage 3a (GFR 45-59) Qualified Code(s): N18.31 - Chronic kidney disease, stage 3a (5) CHF (congestive heart failure): Status: Acute Qualifiers: Heart failure type: diastolic Heart failure chronicity: chronic Qualified Code(s): I50.32 - Chronic diastolic (congestive) heart failure (6) CAD (coronary artery disease): Status: Acute Qualifiers: Coronary Disease-Associated Artery/Lesion type: [place] artery [place] vs. transplanted heart: [place] heart Associated angina: without angina Qualified Code(s): I25.10 - Atherosclerotic heart disease of [place] coronary artery without angina pectoris (7) Hyperlipidemia: Status: Acute Qualifiers: Hyperlipidemia type: mixed hyperlipidemia Qualified Code(s): E78.2 - Mixed hyperlipidemia (8) GERD (gastroesophageal reflux disease): Status: Acute Qualifiers: Esophagitis presence: without esophagitis Qualified Code(s): K21.9 - Gastro-esophageal reflux disease without esophagitis (9) HTN (hypertension), benign: Status: Acute Permanent problem details: HCTZ DC due to pancreatitis (10) Leukocytosis: Status: Acute (11) Pneumonia: Status: Acute Reason for Visit Reason for Visit: SOB X 2 WEEKS Hospital Course Hospital Course Chery Tsang is a 67 year old female past medical history of CAD, on aspirin, history of COPD, history of chronic pancreatitis on Creon, GERD, hypertension, history of inflammatory arthritis, on leflunomide, Plaquenil, hypertension, history of CHF, GERD, who presents [facility] due to complaints of black tarry schools for the last week, weakness, fatigue, shortness of breath f or the last 2 weeks.? Patient reports that what brought her to the emergency room today was that her black tarry stools, she has been feeling increasingly short of breath, increasingly weak fatigued tired and lightheaded.? She also been complaining of night sweats, and chills, and fevers.? Denies any cough.? She tells me that she also has severe abdominal pain which brings her to the emergency room the abdominal pain is all over her abdomen.? She had an episode of black tarry stool this morning.? Denies any history of GI bleeds.? No history of anemia.? She tells me that she had a colonoscopy a few years ago, which was unremarkable.? She has never had an EGD.? She denies any cough, she tells me she is always short of breath, but she is now more short of breath than usual, no chest pain, no palpitations.? In the emergency room patient looks pale, in pain, particularly abdominal pain, tachycardic heart rates in the 120s, sinus, blood pressure 119/80, following all commands.? Hemoccult stool performed by the ER provider was positive.? Hemoglobin 9.7.? Given elevated D-dimer, and elevated white count she underwent CT angiogram which excluded pulmonary embolism.? She also was found to have elevated troponins, takes a baby aspirin no history of angiography, no reported chest pain, EKG no acute ST-T wave changes GI bleed, s/p 1 unit prbc, received protonix and carafate, underwent egd which showed gastritis, pathology showed h pylori gastritis discharged on amoxicillin, clarithromycin, protonix. DUe to interaction patient was advised to hold plaquenil, leflunoamide and atorvastatin. Folic acid deficiency, discharged on folic acid Patient was treated for pneumonia, received broad spectrum antibiotics, cultures were negative, discharged her on antibiotics as above Sinus tachycardia, likely beta rebeca withdrawal, resume metoprolol 25mg BID Physical Exam Const: COMMON NORMALS: no acute distress and patient oriented x3 Resp: COMMON NORMALS: normal respiratory effort, No retractions, No use of accessory muscles and clear to auscultation bilaterally AUSCULTATION: clear to auscultation bilaterally Cardio: COMMON NORMALS: regular rate, regular rhythm, S1 normal heart sound present and S2 normal heart sound present RATE: regular rate RHYTHM: regular rhythm HEART SOUNDS: S1 normal heart sound present and S2 normal heart sound present GI: COMMON NORMALS: Normal to inspection, nondistended, normoactive bowel sounds present and non-tender Extremity: COMMON NORMALS: no pedal edema Neuro: COMMON NORMALS: patient oriented x3 Psych: COMMON NORMALS: mental status grossly normal Discharge Data Studies Completed and Pending Completed Studies During Hospitalization Category Date Time Status CT abdomen pelvis wo con [id number] Stat Cat Scan 12/16/22 15:[address] angio chest PE protcl [id number] Stat Cat Scan 12/16/22 12:59 Completed XR chest 1V portable [id number] Routine Exams 12/18/22 08:31 Completed XR chest 1V portable [id number] Stat Exams 12/16/22 12:05 Completed Pathology: Surgical [PTH] Routine Pth 12/17/22 13:14 Completed CV. echo complete* [id number] Stat Ultrasound 12/17/22 15:55 Completed Pending at discharge Category Date Time Status Blood Culture Stat Lab 12/16/22 13:25 Results Clostridioides Difficile PCR Routine Lab 12/16/22 15:52 Results Enteric Bacterial Panel by PCR Routine Lab 12/16/22 15:52 Results Enteric Parasite Panel by PCR Routine Lab 12/16/22 15:52 Results Immunochemical Fecal OCB Routine Lab 12/16/22 15:52 Results Lactoferrin Routine Lab 12/16/22 15:52 Results Occult Blood Stool [Immunochemical Fecal OCB] Routine Lab 12/16/22 14:47 Received PRBC [Leukocyte Reduced RBC] Routine Lab 12/17/22 05:10 Results Sputum Culture and Gram Stain Stat Lab 12/16/22 15:55 Uncollected Type and Screen Routine Lab 12/17/22 05:10 Results Vancomycin Trough Timed Lab 12/20/22 14:30 Ordered Radiology Impressions Chest CTA 12/16/22 12:59 IMPRESSION: 1. No pulmonary embolism. 2. Chronic emphysema. 3. Interstitial thickening and peripheral areas of irregular consolidation predominantly in the lower lung hicks. Suspect superimposed pneumonitis on chronic areas of emphysema and probable honeycombing. 4. No adenopathy. 5. Atherosclerosis aorta. Abdomen/Pelvis CT 12/16/22 15:48 IMPRESSION: 1. No acute findings within the abdomen or pelvis. 2. Moderate gaseous distention of the transverse colon presumed secondary to colonic ileus. 3. Chronic changes at the lung bases as previously discussed. Chest X-Ray 12/18/22 08:31 IMPRESSION: Stable abnormal right lung with interval change in the left lung as above. Laboratory Results WBC 10.9 10^3/uL (4.0-10.0) H 12/19/22 03:55 RBC 3.36 10^6/uL (4.1-5.3) L 12/19/22 03:55 Hgb 10.0 g/dL (11.5-15.3) L 12/19/22 03:55 Hct 30.8 % (37.0-47.0) L 12/19/22 03:55 MCV 91.7 fl (81-99) 12/19/22 03:55 MCH 29.8 pg (28.0-34.0) 12/19/22 03:55 MCHC 32.5 g/dL (30.0-36.0) 12/19/22 03:55 RDW 16.7 % (12.1-15.1) H 12/19/22 03:55 Plt Count 281 10^3/cmm (130-400) 12/19/22 03:55 MPV 10.1 fL (7.4-10.4) 12/19/22 03:55 Neut % (Auto) 93.5 % 12/19/22 03:55 Lymph % (Auto) 2.7 % 12/19/22 03:55 Preston % (Auto) 2.9 % 12/19/22 03:55 Eos % (Auto) 0.0 % 12/19/22 03:55 Baso % (Auto) 0.0 % 12/19/22 03:55 Neut # (Auto) 10.17 10^3/uL (1.8-7.7) H 12/19/22 03:55 Lymph # (Auto) 0.3 10^3/uL (0.8-4.8) L 12/19/22 03:55 Preston # (Auto) 0.3 10^3/uL (0.2-0.9) 12/19/22 03:55 Eos # (Auto) 0.0 10^3/uL (0.0-0.8) 12/19/22 03:55 Baso # (Auto) 0.0 10^3/uL (0.0-0.1) 12/19/22 03:55 Nucleated RBC % (auto) 0 % 12/19/22 03:55 Nucleated RBCs # 0.0 /100WBC 12/19/22 03:55 ESR 74 mm/hr (0-15) H 12/17/22 11:40 PT 18.00 SECONDS (12.1-14.9) H 12/17/22 11:40 INR 1.43 (0.8-1.2) H 12/17/22 11:40 D-Dimer 5.76 ug/mIFEU (0-0.59) H 12/16/22 12:13 Specimen Type Arterial 12/16/22 12:12 Sample Site Brachial, right 12/16/22 12:12 ABG pH 7.49 (7.35-7.45) H 12/16/22 12:12 ABG pCO2 30.9 mmHg (35-45) L 12/16/22 12:12 ABG pO2 57.5 mmHg (80.0-100.0) L 12/16/22 12:12 ABG HCO3 23.5 mmol/L (22-26) 12/16/22 12:12 ABG O2 Saturation 91.0 12/16/22 12:12 ABG Base Excess 0.6 mmol/L (-2.0-2.0) 12/16/22 12:12 Vasyl Test Pos 12/16/22 12:12 A-a O2 Gradient 6.7 mmHg (5-10) 12/16/22 12:12 Hematocrit 32.1 % (37-47) L 12/16/22 12:12 Hgb O2 Saturation 89.2 % (95-100) L 12/16/22 12:12 Carboxyhemoglobin 0.9 %THgb (0.4-20.1) 12/16/22 12:12 Methemoglobin 1.1 % (0.4-1.5) 12/16/22 12:12 Total Hemoglobin 10.5 g/dL (12-16) L 12/16/22 12:12 Sodium 136.0 mmol/L (131-143) 12/16/22 12:12 Potassium 3.2 mmol/L (3.5-5.0) L 12/16/22 12:12 Glucose 129.0 mg/dL (70-115) H 12/16/22 12:12 Ionized Calcium 1.1 mmol/L (1.1-1.4) 12/16/22 12:12 O2 Delivery Device None 12/16/22 12:12 FiO2 21.0 % 12/16/22 12:12 Talent Recruiter ID Wal[place] 12/16/22 12:12 Sodium 141 mmol/L (136-145) 12/19/22 03:55 Potassium 3.3 mmol/L (3.5-5.1) L 12/19/22 03:55 Chloride 104 mmol/L (98-107) 12/19/22 03:55 Carbon Dioxide 24 mmol/L (22-29) 12/19/22 03:55 Anion Gap 16.3 (5-19) 12/19/22 03:55 BUN 14 mg/dL (8-23) 12/19/22 03:55 Creatinine 0.9 mg/dL (0.5-0.9) 12/19/22 03:55 GFR Calculation 62.3 mL/min (90-130) L 12/19/22 03:55 Glucose 105 mg/dL (65-115) 12/19/22 03:55 POC Glucose 47 mg/dL (70-110) L 12/18/22 08:09 Calculated Osmolality 293 mOsm/kg (285-295) 12/19/22 03:55 Lactic Acid 2.2 mmol/L (0.5-2.2) 12/16/22 12:13 Lactic Acid (Sepsis) 1.8 mmol/L (0.5-2.2) 12/16/22 14:55 Calcium 8.0 mg/dL (8.5-10.5) L 12/19/22 03:55 Phosphorus 3.5 mg/dL (2.5-4.5) 12/19/22 03:55 Magnesium 1.5 mg/dL (1.7-2.3) L 12/19/22 03:55 Iron 36 ug/dL (37-145) L 12/16/22 12:13 TIBC 145 mcg/dl 12/16/22 12:13 % Saturation 24.8 % (20-50) 12/16/22 12:13 Unsat Iron Binding 109 ug/dL (112-347) L 12/16/22 12:13 Ferritin 2593 ng/mL (15-150) H 12/16/22 12:13 Total Bilirubin 0.4 mg/dL (0.15-1.2) 12/16/22 12:13 AST 47 U/L (0-32) H 12/16/22 12:13 ALT 29 U/L (0-33) 12/16/22 12:13 Alkaline Phosphatase 132 U/L (35-105) H 12/16/22 12:13 Creatine Kinase 18 U/L (26-192) L 12/16/22 12:13 Troponin T Baseline 102 ng/L (0-10) H* 12/16/22 12:13 Troponin T 120 Minute 100.4 ng/L (0-10) H 12/16/22 14:18 Delta Troponin T -1.6 ABS# (0-10) L 12/16/22 14:18 Troponin T Hi Sens 6Hr 112.3 ng/L (0-10) H 12/16/22 19:34 Troponin T Hi Sens 6Hr Delta 10.3 ng/L (0-12) 12/16/22 19:34 C-Reactive Protein 307.6 mg/L (0.0-4.9) H 12/16/22 12:13 Total Protein 5.9 g/dL (6.6-8.7) L 12/16/22 12:13 Albumin 2.4 g/dL (3.5-5.2) L 12/16/22 12:13 Globulin 3.5 g/dL (1.3-4.6) 12/16/22 12:13 Lipase 14 U/L (13-60) 12/16/22 12:13 Vitamin B12 1809 pg/mL (232-1245) H 12/16/22 12:13 Folate 4.1 ng/mL (4.8-37.3) L 12/16/22 12:13 Procalcitonin 0.33 ng/mL (0-0.5) 12/16/22 12:13 TSH 1.47 uIU/mL (0.27-4.20) 12/16/22 19:37 Urine Color Yellow (Yellow) 12/16/22 21:02 Urine Appearance Hazy (CLEAR) A 12/16/22 21:02 Urine pH 5 (5-7) 12/16/22 21:02 Ur Specific Randall 1.005 (1.005-1.030) 12/16/22 21:02 Urine Protein 1+ (Negative) H 12/16/22 21:02 Urine Glucose (UA) Norm (Normal) 12/16/22 21:02 Urine Ketones 1+ (Negative) H 12/16/22 21:02 Urine Blood Neg (Negative) 12/16/22 21:02 Urine Nitrate Negative (Negative) 12/16/22 21:02 Urine Bilirubin 1+ (Negative) H 12/16/22 21:02 Urine Urobilinogen 1 mg/dL (Negative) H 12/16/22 21:02 Ur Leukocyte Esterase Negative (Negative) 12/16/22 21:02 Urine RBC 0-4 /hpf (0-2) H 12/16/22 21:02 Urine WBC 0-4 /hpf (0-5) H 12/16/22 21:02 Ur Squamous Epith Cells 0-4 /hpf (0-5) H 12/16/22 21:02 Amorphous Sediment Not Reportable 12/16/22 21:02 Urine Bacteria 2+ /hpf (NONE) H 12/16/22 21:02 Urine Mucus 1+ /hpf 12/16/22 21:02 Nasal Influ A H1 2009 PCR Not detected (NOT DETECT) 12/16/22 21:20 Adenovirus (PCR) Not detected (NOT DETECT) 12/16/22 21:20 C. pneumoniae DNA (PCR) Not detected (NOT DETECT) 12/16/22 21:20 Coronavirus 229E (PCR) Cancelled 12/16/22 21:20 Coronavirus 229E (PCR) Not detected (NOT DETECT) 12/16/22 21:20 Hepatitis A IgM Ab Non-reactive (Nonreactive) 12/16/22 12:13 Hep Bs Antigen Non-reactive (Nonreactive) 12/16/22 12:13 Hep B Core IgM Ab Non-reactive (Nonreactive) 12/16/22 12:13 Hepatitis C Antibody Non-reactive (Nonreactive) 12/16/22 12:13 HIV 1&2 Ab & HIV 1 Ag Non-reactive (Non-Reactiv) 12/16/22 12:13 HIV 1&2 Antibody Non-reactive (Non-Reactiv) 12/16/22 12:13 Human Metapneumovir PCR Not detected (NOT DETECT) 12/16/22 21:20 Influenza A (H1) PCR Not detected (NOT DETECT) 12/16/22 21:20 Influenza A (H3) PCR Not detected (NOT DETECT) 12/16/22 21:20 Influenza Type A (PCR) Not detected (NOT DETECT) 12/16/22 21:20 Influenza Type B (PCR) Not detected (NOT DETECT) 12/16/22 21:20 M. pneumoniae (PCR) Not detected (NOT DETECT) 12/16/22 21:20 Parainfluenza 1 (PCR) Not detected (NOT DETECT) 12/16/22 21:20 Parainfluenza 2 (PCR) Not detected (NOT DETECT) 12/16/22 21:20 Parainfluenza 3 (PCR) Not detected (NOT DETECT) 12/16/22 21:20 Parainfluenza 4 (PCR) Not detected (NOT DETECT) 12/16/22 21:20 RSV Type A (PCR) Not detected (NOT DETECT) 12/16/22 21:20 RSV Type B (PCR) Not detected (NOT DETECT) 12/16/22 21:20 Entero/Rhino (PCR) Not detected (NOT DETECT) 12/16/22 21:20 SARS-CoV-2 (PCR) Cancelled 12/16/22 21:20 SARS-CoV-2 (PCR) Not detected (NOT DETECT) 12/16/22 21:20 Blood Type O Positive 12/16/22 19:34 Rho(D) Type Positive 12/16/22 19:34 Antibody Screen Negative 12/16/22 19:34 Crossmatch See Detail 12/16/22 19:34 Vitals Last Vital Signs Temp 98.1 F 12/19/22 08:00 Pulse 103 H 12/19/22 08:00 Resp 16 12/19/22 08:00 BP 108/68 12/19/22 08:00 Pulse Ox 91 12/19/22 08:00 O2 Del Method 12/19/22 03:48 Discharge Plan Discharge Patient Disposition: Home Condition: Stable Prescriptions: New metoprolol tartrate 25 mg Tablet 25 mg PO BID@0900,2100 30 Days Qty: 60 0RF docusate sodium 100 mg Capsule 100 mg PO BID 30 Days Qty: 60 0RF clarithromycin 500 mg tablet 500 mg PO BID 14 Days Qty: 28 0RF folic acid 1 mg Tablet 1 mg PO BID 30 Days Qty: 60 0RF amoxicillin 500 mg capsule 1,000 mg PO BID 14 Days Qty: 56 0RF pantoprazole [Protonix] 40 mg tablet,delayed release (DR/EC) 40 mg PO BID 30 Days Qty: 60 0RF Continued fexofenadine [Shwetha Allergy] 60 mg tablet 60 mg PO BID Combivent Respimat 20-100 mcg/actuation mist 1 puff INHALATION QID PRN (Reason: shortness of breath or wheezing) 30 Days Qty: 4 5RF Creon 24,000-76,000 -120,000 unit capsule,delayed release(DR/EC) 1 cap PO TID Qty: 90 5RF Rx Instructions: administer with meals and/or snacks hydroxyzine HCl 25 mg tablet 50 mg PO BID PRN (Reason: anxiety, sleep, itching) 30 Days Qty: 60 5RF Rx Instructions: 1-2 tabs at bed albuterol sulfate [Proventil HFA] 90 mcg/actuation HFA aerosol inhaler 2 puff INHALATION Q6H PRN (Reason: shortness of breath or wheezing) 30 Days Qty: 18 5RF benzonatate 100 mg capsule See Rx Instructions .ROUTE .COMPLEX Qty: 90 5RF Dose Instruction: TAKE ONE CAPSULE BY MOUTH THREE TIMES A DAY NEEDED FOR COUGH Rx Instructions: TAKE ONE CAPSULE BY MOUTH THREE TIMES A DAY NEEDED FOR COUGH buspirone 10 mg tablet 10 mg PO BID PRN (Reason: anxiety) Qty: 30 5RF Rx Instructions: NEEDED DURING DAY FOR ANXIETY guaifenesin 600 mg tablet extended release 12hr 600 mg PO Q12H PRN (Reason: congestion) 30 Days Qty: 60 5RF tizanidine 4 mg tablet See Rx Instructions .ROUTE .COMPLEX Qty: 120 5RF Dose Instruction: TAKE ONE TABLET BY MOUTH FOUR TIMES A DAY NEEDED FOR MUSCLE SPASTICITY Rx Instructions: TAKE ONE TABLET BY MOUTH FOUR TIMES A DAY NEEDED FOR MUSCLE SPASTICITY pregabalin 100 mg capsule 100 mg PO TID 30 Days Qty: 90 2RF promethazine 25 mg tablet See Rx Instructions .ROUTE .COMPLEX Qty: 14 1RF Dose Instruction: TAKE ONE TABLET BY MOUTH EVERY 6 HOURS NEEDED FOR NAUSEA AND VOMITING THIS IS 30 DAY SUPPLY Rx Instructions: TAKE ONE TABLET BY MOUTH EVERY 6 HOURS NEEDED FOR NAUSEA AND VOMITING THIS IS 30 DAY SUPPLY albuterol sulfate 2.5 mg /3 mL (0.083 %) solution for nebulization 2.5 mg INHALATION QID PRN (Reason: shortness of breath or wheezing) amitriptyline 50 mg tablet 50 mg PO BEDTIME zolpidem 5 mg tablet 5 mg PO BEDTIME fluticasone propionate 50 mcg/actuation spray,suspension 1 spray INTRANASAL Q12H PRN (Reason: Nasal Congestion) Rx Instructions: administer into each nostril sertraline 50 mg tablet 50 mg PO DAILY Nurtec ODT 75 mg tablet,disintegrating 75 mg PO EVERY OTHER DAY Rx Instructions: Take one tab every other day; may take extra tab at onset of headache Held aspirin 81 mg tablet,delayed release (DR/EC) 81 mg PO DAILY Hold Instructions: Resume on 01/02/23. hold for 2 weeks atorvastatin 10 mg tablet 10 mg PO DAILY 90 Days Qty: 90 3RF Hold Instructions: Home Medication placed on hold at Doctor's office hydroxychloroquine 200 mg tablet 200 mg PO BID Qty: 60 3RF Hold Instructions: Resume on 01/09/23. hold until you see rheumatology leflunomide 10 mg Tablet 10 mg PO DAILY Hold Instructions: Resume on 01/09/23. hold until you see rheumatology Discontinued hydralazine 25 mg tablet 25 mg PO BID PRN (Reason: high blood pressure) Qty: 30 2RF Rx Instructions: blood pressure >160/>90 famotidine [Pepcid] 20 mg tablet 20 mg PO DAILY 90 Days Qty: 90 1RF metoprolol tartrate 100 mg tablet 100 mg PO BID 90 Days Qty: 180 1RF amlodipine 10 mg tablet 5 mg PO DAILY 90 Days Qty: 90 1RF No Action (DME) Oxygen See Rx Instructions .Route .MEDSUPPLY Qty: 1 0RF Rx Instructions: As directed, 2Liters by nasal cannula with activity. quantity 1, oxygen. one portable concentrator also Discharge Orders: Discharge Order (Routine); Ordered 12/19/22 Ordered By: Harlan Lomas Referrals: Gabo Morrison DO [Physician] - 1 month Ramiro Paredes MD [Physician] - 3 weeks Deidra Cid MD [Primary Care Provider] - (message sent to clinic.) Discharge Diet: Cardiac Discharge Activity: Resume usual activity Patient Instructions: Helicobacter Pylori (GEN), GI Discharge Instructions, Opioid Safety, Pain Management Activity Restrictions/Additional Instructions: -please take antibiotics as prescribed -decreased metoprolol dose to 25mg BID Discharge Attestations Time Spent in Discharge Care*: greater than 30 min Quality Metrics Clinical Quality Measures [ No reported AMI, CVA or VTE this stay] Coding Level of Care Code 42299 Total time (in minutes) for Discharge: 40 Diagnoses Upper GI bleed K92.2 NSTEMI (non-ST elevated myocardial infarction) I21.4 Hypokalemia E87.6 CKD (chronic kidney disease) N18.31 Chronic kidney disease stage: stage 3 (moderate) Chronic kidney disease stage 3 subtype: stage 3a (GFR 45-59) CHF (congestive heart failure) I50.32 Heart failure type: diastolic Heart failure chronicity: chronic CAD (coronary artery disease) I25.10 Coronary Disease-Associated Artery/Lesion type: [place] artery [place] vs. transplanted heart: [place] heart Associated angina: without angina Hyperlipidemia E78.2 Hyperlipidemia type: mixed hyperlipidemia GERD (gastroesophageal reflux disease) K21.9 Esophagitis presence: without esophagitis HTN (hypertension), benign I10 Leukocytosis D72.829 Pneumonia J18.9
[2022-12-19 12:00] VITALS: BP 99/65; PULSE 89; RESP 16; TEMP 36.7; O2SAT 90
[2022-12-19 13:12] VITALS: BP 99/65; PULSE 89; RESP 16; TEMP 36.7; O2SAT 90
== END 2022-12-19 13:15 | disposition home or self-care (01) | DRG 377 ==
LOC: ER 15:02 → ICU 18:47 → MEDSURG 12-18 20:02
PROVIDERS: Surgery Surgical Critical Care; Admitting Provider Family Medicine; Emergency Provider Family Medicine; PCP Family Medicine; Visit Provider Family Medicine
PROC: 0DJ08ZZ Inspection of Upper Intestinal Tract, Via Natural or Artificial Opening Endoscopic (ICD-10-PCS; CPT 43235; principal; 2022-12-17 11:15)
DX: K29.71 Gastritis, unspecified, with bleeding (principal); I21.4 Non-ST elevation (NSTEMI) myocardial infarction; J18.9 Pneumonia, unspecified organism; J44.0 Chronic obstructive pulmonary disease with (acute) lower respiratory infection; K86.1 Other chronic pancreatitis; I13.0 Hypertensive heart and chronic kidney disease with heart failure and stage 1 through stage 4 chronic kidney disease, or unspecified chronic kidney disease; I50.32 Chronic diastolic (congestive) heart failure; I25.10 Atherosclerotic heart disease of native coronary artery without angina pectoris; K21.9 Gastro-esophageal reflux disease without esophagitis; N18.31 Chronic kidney disease, stage 3a; M19.90 Unspecified osteoarthritis, unspecified site; M72.0 Palmar fascial fibromatosis [Dupuytren]; F41.1 Generalized anxiety disorder; E78.2 Mixed hyperlipidemia; Z87.891 Personal history of nicotine dependence; Z79.51 Long term (current) use of inhaled steroids; E53.8 Deficiency of other specified B group vitamins; D64.9 Anemia, unspecified; E87.6 Hypokalemia
CPT/HCPCS: 36415; 36416; 36430; 36600; 71045; 71275; 74176; 80048; 80051; 80053; 80074; 81001; 82274; 82330; 82550; 82607; 82728; 82746; 82805; 82962; 83540; 83550; 83605; 83630; 83690; 83735; 84100; 84145; 84443; 84484; 85014; 85018; 85025; 85378; 85610; 85651; 86140; 86850; 86900; 86920; 87040; 87086; 87486; 87493; 87506; 87581; 87633; 87641; 87806; 88305; 92523; 92526; 92610; 93005; 93306; 94640; 96365; 96366; 96367; 96375; 96376; 97116; 97162; 97166; 99285; C9113; J0456; J0696; J1940; J2270; J2405; J2543; J2704; J2930; J3370; J3475; J3480; J7030; J7050; P9016; Q9967

== ENCOUNTER → 2022-12-25 11:10 | Outpatient (BNVA) | payer MEDICARE, MEDICAID, SELFPAY | PROVIDERS: PCP Family Medicine; Visit Provider Family Medicine | DX: M47.817 Spondylosis without myelopathy or radiculopathy, lumbosacral region (principal); D50.0 Iron deficiency anemia secondary to blood loss (chronic) | CPT/HCPCS: 85025 ==

== ENCOUNTER → 2023-01-06 12:48 | Outpatient (BNVA) | payer MEDICARE, MEDICAID, SELFPAY | PROVIDERS: PCP Family Medicine; Visit Provider Surgery | DX: K92.1 Melena (principal); K29.70 Gastritis, unspecified, without bleeding; B96.81 Helicobacter pylori [H. pylori] as the cause of diseases classified elsewhere | CPT/HCPCS: 99024 ==

== ENCOUNTER → 2023-01-29 13:48 | Outpatient (BNVA) | payer MEDICARE, MEDICAID, SELFPAY | PROVIDERS: PCP Family Medicine; Visit Provider Internal Medicine Rheumatology | DX: M19.90 Unspecified osteoarthritis, unspecified site (principal); M72.0 Palmar fascial fibromatosis [Dupuytren]; Z79.899 Other long term (current) drug therapy; R41.3 Other amnesia; Z71.85 Encounter for immunization safety counseling; R41.89 Other symptoms and signs involving cognitive functions and awareness; M25.559 Pain in unspecified hip | CPT/HCPCS: 73502 ==

== ENCOUNTER → 2023-03-05 12:27 | Outpatient (BNVA) | payer MEDICARE, MEDICAID, SELFPAY | PROVIDERS: PCP Family Medicine; Visit Provider Family Medicine | DX: K92.2 Gastrointestinal hemorrhage, unspecified (principal); R19.5 Other fecal abnormalities; R19.7 Diarrhea, unspecified | CPT/HCPCS: 87493; 87506; G0328 ==

== ENCOUNTER 2023-03-09 09:06 | Outpatient (CLI) | payer MEDICARE, MEDICAID, SELFPAY ==
--- NOTE | 2023-03-09 09:30 | MR_ITS ---
WS: [id number] EXAMINATION: MR hip RT wo/w con [id number] ORDER DATE: 03/09/2023 9:35 AM COMPARISON: Hip radiograph January 29, 2023 HISTORY: R93.5 - Abnormal findings on diagnostic imaging of other ... CONTRAST: None. TECHNIQUE: Coronal STIR of the Pelvis. Coronal proton density, coronal T1, axial T2 fat sat, axial T1 , sagittal T2 fat sat, and sagittal T1 performed of the hip. After contrast, axial T1 fat sat, coron al T1 fat sat, and sagittal T1 fat sat were performed. FINDINGS: Advanced osteoarthritis RIGHT hip with subchondral cystic change and narrowing of the joint space. 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 No significant subchondral collapse. Diffuse edema involving the femoral neck with suggestion of a small nondisplaced stress fracture invo lving the base of the femoral neck. Associated surrounding edema with a small amount of surrounding f luid. Small joint effusion. Fluid within the iliopsoas bursa. Proximal femoral shaft appears normal. Normal LEFT hip. Normal bone marrow signal in the LEFT femoral head and neck. Normal LEFT femoral shaft. Normal visual ized sacral ala. MR/MR hip RT wo/w con [id number] IMPRESSION: 1. Advanced degenerative arthritis RIGHT hip with subchondral cystic change in volving the femoral head with edema. 2. 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 No significant collapse. 3. In addition, suspected nondisplaced stress fracture involving the femoral n bertin with associated soft tissue edema. 4. Small RIGHT joint effusion. 5. No other acute findings.
[2023-03-09] MEDS: gadobenate dimeglumine 20 mL vial IV (10:40)
== END 2023-03-09 09:07 | disposition home or self-care (01) ==
PROVIDERS: PCP Family Medicine; Visit Provider Family Medicine
DX: R93.5 Abnormal findings on diagnostic imaging of other abdominal regions, including retroperitoneum (principal); M16.11 Unilateral primary osteoarthritis, right hip
CPT/HCPCS: 73723; A9577

== ENCOUNTER → 2023-04-08 13:26 | Outpatient (BNVA) | payer MEDICARE, MEDICAID, SELFPAY | PROVIDERS: PCP Family Medicine; Referring Provider Family Medicine; Visit Provider Specialist | DX: M16.11 Unilateral primary osteoarthritis, right hip; M87.051 Idiopathic aseptic necrosis of right femur | CPT/HCPCS: 73502; 99204 ==

== ENCOUNTER → 2023-05-21 10:38 | Outpatient (BNVA) | payer MEDICARE, MEDICAID, SELFPAY | PROVIDERS: PCP Family Medicine; Visit Provider Family Medicine | DX: R63.0 Anorexia (principal); I10 Essential (primary) hypertension; J41.0 Simple chronic bronchitis; E78.2 Mixed hyperlipidemia; E03.9 Hypothyroidism, unspecified; R53.83 Other fatigue; E53.8 Deficiency of other specified B group vitamins; F51.04 Psychophysiologic insomnia; M48.062 Spinal stenosis, lumbar region with neurogenic claudication | CPT/HCPCS: 80053; 80061; 82607; 84443; 85025 ==

== ENCOUNTER → 2023-05-22 11:55 | Outpatient (BNVA) | payer MEDICARE, MEDICAID, SELFPAY | PROVIDERS: PCP Family Medicine; Visit Provider Surgery | DX: Z12.11 Encounter for screening for malignant neoplasm of colon (principal); Z12.12 Encounter for screening for malignant neoplasm of rectum; Z91.89 Other specified personal risk factors, not elsewhere classified | CPT/HCPCS: 99024; 99203 ==

== ENCOUNTER 2023-06-14 13:22 | Emergency (ER) | payer MEDICARE, MEDICAID, SELFPAY ==
[2023-06-14 13:30] VITALS: BP 108/64; PULSE 93; RESP 17; TEMP 36.3; O2SAT 97; BMI 19.5
--- NOTE | 2023-06-14 13:40 | CTR_ITS ---
PROCEDURE INFORMATION: Exam: CT Head Without Contrast Exam date and time: 06/14/2023 2:11 PM Age: 68 years old Clinical indication: Injury or trauma; Fall; Blunt trauma (contusions or hematomas); With loss of consciousness TECHNIQUE: Imaging protocol: Computed tomography of the head without contrast. Radiation optimization: All CT scans at this facility use at least one of these dose optimization techniques: automated exposure control; mA and/or kV adjustment per patient size (includes targeted exams where dose is matched to clinical indication); or iterative reconstruction. REPORTING DATA: Count of CT and Cardiac NM exams in prior 12 months: This patient has received 3 known CTs and 0 known cardiac nuclear medicine studies in the 12 months prior to the current study. COMPARISON: MR head wo con* [id number] 09/15/2022 2:40 PM RADIATION DOSE METRICS: Total DLP (mGy-cm): 960.56 FINDINGS: Brain: Mild bilateral periventricular and subcortical white matter hypodensities are present compatible with small-vessel ischemic disease. No midline shift. No mass, acute infarct, hemorrhage, or extra-axial fluid collection. Cerebral ventricles: No ventriculomegaly. Paranasal sinuses: Visualized sinuses are unremarkable. No fluid levels. Mastoid air cells: Visualized mastoid air cells are well aerated. Bones/joints: Unremarkable. No acute fracture. Soft tissues: Right frontal scalp injury. CT/CT head wo con* [id number] IMPRESSION: No acute intracranial abnormality.
--- NOTE | 2023-06-14 13:57 | W.ED.FALL ---
HPI - Fall General: Chief Complaint: Fall Stated Complaint: head injury/fall Time Seen by Provider: 06/14/23 13:46 Source: patient Mode of arrival: ambulatory Limitations: no limitations History of Present Illness: Patient is a 68-year-old female who presents to the ED with a fall. Patient reports she got up last night to use the restroom around 1 AM. Reports that she faintly remembers falling but states that she remembers blacking out and then waking up with blood everywhere. Reports that she was unable to get up at that time due to weakness and went back to sleep on the bathroom floor. Reports that she was able to get up around 8 AM and call family for help. Reports that she takes medical marijuana Gummies at night and has had some recent psychiatric medication changes within the past week, but also states weakness has occurred for >2 years. Denies any chest pain, fever, abdominal pain. MD complaint: fall Fall from: standing Fall witnessed: no Place fall occurred: home Loss of consciousness: Yes Prolonged down time: unclear Associated symptoms-after fall: Reports headache(s); Denies abdominal pain, chest pain or neck pain Review of Systems Const: Denies: fever(s) or chills Eyes: Reports: blurry vision; Denies: change in vision ENMT: Denies: throat pain or dry mouth Card: Denies: chest pain or palpitations Resp: Reports: dyspnea and non-productive cough GI: Denies: abdominal pain, nausea or vomiting : Denies: flank pain Musc: Reports: other (head pain); Denies: neck pain or back pain Neuro: Reports: headache(s) PFSH ED PFSH: Medical History (Updated 06/14/23 @ 14:58 by Selena Del Angel MD) Allergic rhinitis Balance disorder Bradycardia with 51-60 beats per minute CAD (coronary artery disease) CHF (congestive heart failure) Chronic migraine Chronic pancreatitis COPD (chronic obstructive pulmonary disease) Diarrhea Dupuytrens contracture Elevated liver enzymes resolved Enrolled in chronic care management ZAYNAB (generalized anxiety disorder) Prozac caused tachycardia. GERD (gastroesophageal reflux disease) High risk medication use HTN (hypertension), benign HCTZ DC due to pancreatitis Hx of acute pancreatitis Due to HCTZ Hyperlipidemia Immunization counseling Inflammatory arthritis Insomnia Was previously on Ambien 10 mg. Weaned down to 5 mg. Lumbosacral spondylosis Memory loss Polyarthralgia Psychiatric care Weakness Surgical History (Updated 05/22/23 @ 12:03 by LEANDRA Collier) H/O section H/O foot surgery H/O tubal ligation H/O: hysterectomy Hx of colonoscopy S/P cataract surgery S/P cholecystectomy Social History Smoking and tobacco status: former smoker Quit status (tobacco): has quit using tobacco Year quit tobacco: 2000 Alcohol intake: current Alcohol intake frequency: holidays/special occasions only Alcohol type: wine Desire information about alcohol rehabilitation?: No Substance/Drug Use: never Desire information about substance/drug rehabilitation?: No Current gender identity: Female Female Reproductive History: Spontaneous abortions: No Physical Exam Const: COMMON NORMALS: no acute distress, patient oriented x3 and alert HENMT: COMMON NORMALS: normocephalic HEAD & SCALP: normocephalic FACE & SINUS: other (forehead laceration) Eye: COMMON NORMALS: Equal, round and reactive pupils present and EOMs intact bilaterally GENERAL EYE: appearance normal, both eyes and all related structures PUPIL: Yes Equal, round and reactive pupils present Neck/C-Spine: COMMON NORMALS: full ROM, no lymphadenopathy and no JVD Lymph: LYMPHATIC: no lymphadenopathy noted Chest: CHEST: Yes Symmetrical chest wall rise Resp: COMMON NORMALS: normal respiratory effort EFFORT & INSPECTION: Yes symmetric chest movement AUSCULTATION: diminished lung sounds Cardio: COMMON NORMALS: no JVD and S1 normal heart sound present HEART SOUNDS: S1 normal heart sound present GI: COMMON NORMALS: Normal to inspection, nondistended, normoactive bowel sounds present Back/Pelvis: COMMON NORMALS: no thoracic nor lumbar tenderness Extremity: COMMON NORMALS: normal to inspection Neuro: COMMON NORMALS: patient oriented x3 SENSORIUM/ORIENTATION: Yes alert SPEECH: speech normal GAIT: Yes Normal gait present Skin: COMMON NORMALS: no rashes or lesions noted NARRATIVE SKIN EXAM: Laceration to right upper forehead noted. GENERAL SKIN EXAM: no rashes or lesions noted Procedures Laceration Laceration 1: Site: face Size (cm): 3 Description: linear Depth: simple, single layer Local Anesthetic: lidocaine 1% Amount of anesthesia used (mL): 5 Pre-repair: wound explored, irrigated extensively and deep structures intact Skin layer closed with: nylon Size (cm): 6-0 Number of sutures: 3 Technique: simple, interrupted Course Vital Signs: Vital signs: Vital Signs Temperature 97.4 F L 06/14/23 13:30 Pulse Rate 93 06/14/23 13:30 Respiratory Rate 17 06/14/23 13:30 Blood Pressure 108/64 06/14/23 13:30 Pulse Oximetry 97 06/14/23 13:30 Oxygen Delivery Me thod Room Air 06/14/23 13:30 MDM - Fall Medical Decision Making Patient presents with head laceration from a fall laceration was sutured here her imaging is normal she is stable for discharge she is to have her sutures removed in 7 days. Medical Records I reviewed the patient's medical records. Lab Data I reviewed the patient's lab results. 06/14/23 14:04 06/14/23 14:[address] 06/14/23 13:40 IMPRESSION: No acute intracranial abnormality. Laboratory Results WBC 6.58 10^3/uL (3.29-11.43) 06/14/23 14:04 RBC 3.52 10^6/uL (3.85-5.65) L 06/14/23 14:04 Hgb 11.00 g/dL (11.27-16.99) L 06/14/23 14:04 Hct 35.3 % (36-47) L 06/14/23 14:04 MCV 100.3 fl (85-98) H 06/14/23 14:04 MCH 31.3 pg (27-33) 06/14/23 14:04 MCHC 31.2 g/dL (30-55) 06/14/23 14:04 RDW 14.5 % (12.1-15.1) 06/14/23 14:04 Plt Count 99 10^3/cmm (157-399) L 06/14/23 14:04 MPV 12.2 fL (7.4-10.4) H 06/14/23 14:04 Neut % (Auto) 71.2 % 06/14/23 14:04 Lymph % (Auto) 15.8 % 06/14/23 14:04 [place] % (Auto) 9.9 % 06/14/23 14:04 Eos % (Auto) 1.7 % 06/14/23 14:04 Baso % (Auto) 1.1 % 06/14/23 14:04 Neut # (Auto) 4.69 10^3/uL (1.8-7.7) 06/14/23 14:04 Lymph # (Auto) 1.0 10^3/uL (0.8-4.8) 06/14/23 14:04 [place] # (Auto) 0.7 10^3/uL (0.2-0.9) 06/14/23 14:04 Eos # (Auto) 0.1 10^3/uL (0.0-0.8) 06/14/23 14:04 Baso # (Auto) 0.1 10^3/uL (0.0-0.1) 06/14/23 14:04 Nucleated RBC % (auto) 0 % 06/14/23 14:04 Nucleated RBCs # 0.0 /100WBC 06/14/23 14:04 Sodium 140 mmol/L (136-145) 06/14/23 14:04 Potassium 3.9 mmol/L (3.5-5.1) 06/14/23 14:04 Chloride 106 mmol/L (98-107) 06/14/23 14:04 Carbon Dioxide 26 mmol/L (22-29) 06/14/23 14:04 Anion Gap 11.9 (5-19) 06/14/23 14:04 BUN 18 mg/dL (8-23) 06/14/23 14:04 Creatinine 1.3 mg/dL (0.5-0.9) H 06/14/23 14:04 GFR Calculation 40.6 mL/min (90-130) L 06/14/23 14:04 Glucose 97 mg/dL (65-115) 06/14/23 14:04 Calculated Osmolality 292 mOsm/kg (285-295) 06/14/23 14:04 Calcium 8.4 mg/dL (8.5-10.5) L 06/14/23 14:04 All radiology interpretation(s) finalized by discharge Discharge Plan Discharge Patient Disposition: Home Clinical Impression: Head injury, Laceration Condition: Stable Prescriptions: No Action aspirin 81 mg tablet,delayed release (DR/EC) 81 mg PO DAILY Hold Instructions: Resume on 01/02/23. hold for 2 weeks fexofenadine [Shwetha Allergy] 60 mg tablet 60 mg PO BID atorvastatin 10 mg tablet 10 mg PO DAILY 90 Days Qty: 90 3RF Hold Instructions: Resume on 01/09/23. hold (DME) Oxygen See Rx Instructions .Route .MEDSUPPLY Qty: 1 0RF Rx Instructions: As directed, 2Liters by nasal cannula with activity. quantity 1, oxygen. one portable concentrator also tramadol 50 mg tablet 50 mg PO TID PRN (Reason: take for moderate to severe pain PRN) Qty: 60 1RF hydroxychloroquine 200 mg tablet 200 mg PO BID Qty: 60 3RF Hold Instructions: Resume on 01/09/23. hold until you see rheumatology benzonatate 100 mg capsule See Rx Instructions .ROUTE .COMPLEX Qty: 90 5RF Dose Instruction: TAKE ONE CAPSULE BY MOUTH THREE TIMES A DAY NEEDED FOR COUGH Rx Instructions: TAKE ONE CAPSULE BY MOUTH THREE TIMES A DAY NEEDED FOR COUGH tizanidine 4 mg tablet See Rx Instructions .ROUTE .COMPLEX Qty: 120 5RF Dose Instruction: TAKE ONE TABLET BY MOUTH FOUR TIMES A DAY NEEDED FOR MUSCLE SPASTICITY Rx Instructions: TAKE ONE TABLET BY MOUTH FOUR TIMES A DAY NEEDED FOR MUSCLE SPASTICITY amitriptyline 50 mg tablet 50 mg PO BEDTIME 90 Days Qty: 90 1RF zolpidem 5 mg tablet 5 mg PO BEDTIME PRN (Reason: insomnia) 30 Days Qty: 30 2RF sertraline 100 mg tablet 100 mg PO DAILY 90 Days Qty: 90 1RF pregabalin 100 mg capsule 100 mg PO TID 30 Days Qty: 90 2RF Protonix 40 mg tablet,delayed release (DR/EC) 40 mg PO BID 90 Days Qty: 180 1RF metoprolol tartrate 25 mg tablet 25 mg PO BID 90 Days Qty: 180 1RF Combivent Respimat 20-100 mcg/actuation mist 1 puff INHALATION QID PRN (Reason: shortness of breath or wheezing) 30 Days Qty: 4 5RF albuterol sulfate [Proventil HFA] 90 mcg/actuation HFA aerosol inhaler 2 puff INHALATION Q6H PRN (Reason: shortness of breath or wheezing) 30 Days Qty: 18 5RF meloxicam 15 mg tablet 15 mg PO DAILY Qty: 30 2RF alprazolam 0.25 mg tablet 0.25 mg PO DAILY PRN (Reason: anxiety) 30 Days Qty: 30 3RF albuterol sulfate 2.5 mg /3 mL (0.083 %) solution for nebulization 2.5 mg INHALATION QID PRN (Reason: shortness of breath or wheezing) Afflovest as directed Rx Instructions: As needed for COPD promethazine 25 mg tablet See Rx Instructions .ROUTE .COMPLEX Qty: 14 1RF Dose Instruction: TAKE ONE TABLET BY MOUTH EVERY 6 HOURS NEEDED FOR NAUSEA AND VOMITING THIS IS 30 DAY SUPPLY Rx Instructions: TAKE ONE TABLET BY MOUTH EVERY 6 HOURS NEEDED FOR NAUSEA AND VOMITING THIS IS 30 DAY SUPPLY Creon 24,000-76,000 -120,000 unit capsule,delayed release(DR/EC) 1 cap PO TID Qty: 90 0RF Rx Instructions: administer with meals and/or snacks fluticasone propionate 50 mcg/actuation spray,suspension 1 spray INTRANASAL Q12H PRN (Reason: Nasal Congestion) Rx Instructions: administer into each nostril Nurtec ODT 75 mg tablet,disintegrating 75 mg PO EVERY OTHER DAY Rx Instructions: Take one tab every other day; may take extra tab at onset of headache Discharge Orders: Discharge ED (Routine); Ordered 06/14/23 Ordered By: Selena Del Angel Referrals: Deidra Cid MD [Primary Care Provider] - Discharge Diet: Advance as tolerated Discharge Activity: Resume usual activity Patient Instructions: Head Laceration (ED) Activity Restrictions/Additional Instructions: suture removal in 1 week Coding Level of Care Code ED Corporate Pilot for Mirna Turpin
[2023-06-14 14:16] LABS: Basophils # 0.1 10^3/uL (0.0-0.1); Basophils % 1.1 %; Eosinophils # 0.1 10^3/uL (0.0-0.8); Eosinophils % 1.7 %; Hematocrit 35.3 % (36-47); Lymphocytes % 15.8 %; Mean Corpuscular HGB Conc 31.2 g/dL (30-55); Mean Corpuscular Hemoglobin 31.3 pg (27-33); Mean Corpuscular Volume 100.3 fl (85-98); Mean Platelet Volume 12.2 fL (7.4-10.4); Monocytes # 0.7 10^3/uL (0.2-0.9); Monocytes % 9.9 %; Neutrophils # 4.69 10^3/uL (1.8-7.7); Neutrophils % 71.2 %; Nucleated Red Blood Cells % 0 %; Platelet Count 99 10^3/cmm (157-399); Red Blood Count 3.52 10^6/uL (3.85-5.65); Red Cell Distribution Width 14.5 % (12.1-15.1); White Blood Count 6.58 10^3/uL (3.29-11.43)
[2023-06-14 14:37] LABS: Anion Gap 11.9 (5-19); Blood Urea Nitrogen 18 mg/dL (8-23); Calcium 8.4 mg/dL (8.5-10.5); Carbon Dioxide 26 mmol/L (22-29); Chloride 106 mmol/L (98-107); Glomerular Filtration Rate 40.6 mL/min (90-130); Glucose 97 mg/dL (65-115); Osmolality Calculated 292 mOsm/kg (285-295); Potassium 3.9 mmol/L (3.5-5.1); Sodium 140 mmol/L (136-145)
--- NOTE | 2023-06-14 14:38 | ECG_ITS ---
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 Measurements Intervals [place] Rate: 83 P: 79 ID: [id number] QRS: 89 QRSD: 85 T: 88 QT: 392 QTc: 463 Interpretive Statements SINUS RHYTHM WITH FIRST DEGREE AV BLOCK POSSIBLE RIGHT VENTRICULAR CONDUCTION DELAY [RSR (QR) IN V1/V2] NONSPECIFIC ST & T-WAVE ABNORMALITY Compared to ECG 12/16/2022 18:32:53 First degree AV block now present T-wave abnormality now present Sinus tachycardia no longer present Electronically Signed On 06-14-2023 20:34:03 CDT by Wilberto Breaux M.D. [id number]
[2023-06-14 15:38] VITALS: BP 123/82; PULSE 82; O2SAT 91
== END 2023-06-14 15:16 | disposition home or self-care (01) ==
PROVIDERS: Emergency Provider Emergency Medicine; PCP Family Medicine
DX: S01.81XA Laceration without foreign body of other part of head, initial encounter (principal); W19.XXXA Unspecified fall, initial encounter; I25.10 Atherosclerotic heart disease of native coronary artery without angina pectoris; I11.0 Hypertensive heart disease with heart failure; I50.9 Heart failure, unspecified; J44.9 Chronic obstructive pulmonary disease, unspecified; E78.5 Hyperlipidemia, unspecified; Z87.891 Personal history of nicotine dependence; Z79.82 Long term (current) use of aspirin
CPT/HCPCS: 12013; 36415; 70450; 80048; 85025; 93005; 99284

== ENCOUNTER 2023-07-25 20:15 | Emergency (ER) | payer MEDICARE, MEDICAID, SELFPAY ==
[2023-07-25 20:16] VITALS: BP 94/64; PULSE 59; RESP 16; TEMP 36.9; O2SAT 87
--- NOTE | 2023-07-25 20:22 | ECG_ITS ---
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 Measurements Intervals [place] Rate: 87 P: 78 TX: 228 QRS: 78 QRSD: 88 T: 67 QT: 390 QTc: 471 Interpretive Statements SINUS RHYTHM WITH FIRST DEGREE AV BLOCK SEPTAL MYOCARDIAL INFARCTION , OF INDETERMINATE AGE [40+ ms Q WAVE IN V1/V2] Compared to ECG 06/14/2023 14:38:37 Myocardial infarct finding now present T-wave abnormality no longer present Electronically Signed On 07-27-2023 18:35:57 FIXED WING PILOT by Toshia Hernandez M.D. [id number]
--- NOTE | 2023-07-25 20:34 | CTR_ITS ---
PROCEDURE INFORMATION: Exam: CT Head Without Contrast Exam date and time: 07/25/2023 8:51 PM Age: 68 years old Clinical indication: Altered mental status/memory loss; Patient HX: EMS arrival for severe lethargy. History of prior CVA. ; Additional info: AMS TECHNIQUE: Imaging protocol: Computed tomography of the head without contrast. Radiation optimization: All CT scans at this facility use at least one of these dose optimization techniques: automated exposure control; mA and/or kV adjustment per patient size (includes targeted exams where dose is matched to clinical indication); or iterative reconstruction. REPORTING DATA: Count of CT and Cardiac NM exams in prior 12 months: This patient has received 4 known CTs and 0 known cardiac nuclear medicine studies in the 12 months prior to the current study. COMPARISON: CT head wo con* [id number] 06/14/2023 2:11 PM RADIATION DOSE METRICS: Total DLP (mGy-cm): 947.78 FINDINGS: Brain: No focal hemorrhage or midline shift is identified. The ventricles and parenchyma show mild atrophy and chronic bicerebral white matter ischemic change. Cerebral ventricles: No ventriculomegaly or evidence of hydrocephalus. Paranasal sinuses: No evidence of acute sinusitis. Mastoid air cells: Visualized mastoid air cells are well aerated. Bones/joints: No displaced skull fracture is noted. Soft tissues: Unremarkable. Vasculature: Diffuse vascular calcifications are present. CT/CT head wo con* [id number] IMPRESSION: 1. No acute intracranial abnormality. 2. Mild age-related changes.
--- NOTE | 2023-07-25 20:34 | XRR_ITS ---
PROCEDURE INFORMATION: Exam: XR Chest Exam date and time: 07/25/2023 8:41 PM Age: 68 years old Clinical indication: Cough and other: AMS; Patient HX: AMS; Cough TECHNIQUE: Imaging protocol: Radiologic exam of the chest. Views: 1 view. COMPARISON: CR XR chest 1V portable [id number] 12/18/2022 7:59 AM FINDINGS: Lungs: Lung base infiltrates and effusions have cleared from prior. No consolidation. Pleural spaces: Unremarkable. No pleural effusion. No pneumothorax. Heart/Mediastinum: Unremarkable. No cardiomegaly. Advanced diffuse vascular calcification noted. Bones/joints: Unremarkable. XR/XR chest 1V portable [id number] IMPRESSION: No acute findings.
[2023-07-25 20:40] LABS: Glucose Point of Care 181 mg/dL (70-110)
[2023-07-25 20:50] LABS: Basophils # 0.1 10^3/uL (0.0-0.1); Basophils % 0.8 %; Eosinophils # 0.2 10^3/uL (0.0-0.8); Eosinophils % 2.1 %; Hematocrit 33.8 % (36-47); Lymphocytes # 0.7 10^3/uL (0.8-4.8); Lymphocytes % 8.5 %; Mean Corpuscular Hemoglobin 31.4 pg (27-33); Mean Corpuscular Volume 98.3 fl (85-98); Mean Platelet Volume 11.9 fL (7.4-10.4); Monocytes # 0.7 10^3/uL (0.2-0.9); Monocytes % 8.3 %; Neutrophils # 6.39 10^3/uL (1.8-7.7); Neutrophils % 79.9 %; Nucleated Red Blood Cells % 0 %; Platelet Count 124 10^3/cmm (157-399); Red Blood Count 3.44 10^6/uL (3.85-5.65); Red Cell Distribution Width 11.9 % (12.1-15.1); White Blood Count 7.99 10^3/uL (3.29-11.43)
[2023-07-25 20:59] LABS: INR 1.05 (0.8-1.2)
[2023-07-25] MEDS: sodium chloride 0.9% 1,000 ML 999 ML IV (21:00)
[2023-07-25 21:01] LABS: Partial Thromboplastin Time 29.8 SECONDS (23.9-36.7)
[2023-07-25 21:05] LABS: Troponin(5th) Baseline 13 ng/L (0-10)
[2023-07-25 21:07] LABS: Acetaminophen < 5.0 ug/mL (10-30); Alanine Aminotransferase < 5 U/L (0-33); Albumin Level 3.4 g/dL (3.5-5.2); Alcohol Level < 10 mg/dL (0-10); Alkaline Phosphatase 95 U/L (35-105); Aspartate Amino Transferase 9 U/L (0-32); Blood Urea Nitrogen 18 mg/dL (8-23); Calcium 8.2 mg/dL (8.5-10.5); Carbon Dioxide 23 mmol/L (22-29); Chloride 101 mmol/L (98-107); Creatine Phosphokinase 29 U/L (26-192); Creatinine Clr Calc Pharmacy 35.2454; Globulin 1.8 g/dL (1.3-4.6); Glomerular Filtration Rate 40.6 mL/min (90-130); Glucose 291 mg/dL (65-115); Osmolality Calculated 293 mOsm/kg (285-295); Salicylate < 0.3 mg/dL (3-10); Sodium 135 mmol/L (136-145); Total Bilirubin 0.2 mg/dL (0.15-1.2); Total Protein 5.2 g/dL (6.6-8.7)
[2023-07-25 21:08] LABS: ABG PCO2 39.5 mmHg (35-45); ABG PH Result 7.38 (7.35-7.45); Arterial Blood Gas Hematocrit 37.5 % (37-47); Base Excess ABG -1.7 mmol/L (-2.0-2.0); Blood Gas Sample Site Brachial, right; Blood Gas Sample Type Arterial; HCO3 ABG 23.3 mmol/L (22-26); Oxygen Device NC
[2023-07-25 21:08] LABS: Lactic Sepsis W/Reflex 0.9 mmol/L (0.5-2.2)
--- NOTE | 2023-07-25 22:28 | ED_ITS ---
HPI - Altered Mental Status General: Chief Complaint: Altered Mental Status Stated Complaint: AMS Time Seen by Provider: 07/25/23 20:32 History of Present Illness: 68-year-old somewhat frail thin female who lives evidently at home alone. She was found by her family this evening. Her last known well was 5 PM yesterday. She had decreased mental status/lethargy, inability to walk. She received a shipment of marijuana Gummies yesterday, and a new bottle. The family found several Gummies missing from the bottle. She denies significant illness recently, although she states that she may have run a fever a couple of days ago. Review of Systems Const: Reports: fever(s) and chills Eyes: Denies: change in vision ENMT: Denies: throat pain Card: Denies: chest pain or palpitations Resp: Denies: dyspnea, productive cough or non-productive cough GI: Denies: abdominal pain, nausea or vomiting : Denies: dysuria Neuro: Denies: headache(s) PFSH ED PFSH: Medical History Allergic rhinitis Balance disorder Bradycardia with 51-60 beats per minute CAD (coronary artery disease) CHF (congestive heart failure) Chronic migraine Chronic pancreatitis COPD (chronic obstructive pulmonary disease) Diarrhea Dupuytrens contracture Elevated liver enzymes resolved Enrolled in chronic care management ZAYNAB (generalized anxiety disorder) Prozac caused tachycardia. GERD (gastroesophageal reflux disease) High risk medication use HTN (hypertension), benign HCTZ DC due to pancreatitis Hx of acute pancreatitis Due to HCTZ Hyperlipidemia Immunization counseling Inflammatory arthritis Insomnia Was previously on Ambien 10 mg. Weaned down to 5 mg. Lumbosacral spondylosis Memory loss Polyarthralgia Psychiatric care Weakness Surgical History H/O section H/O foot surgery H/O tubal ligation H/O: hysterectomy Hx of colonoscopy S/P cataract surgery S/P cholecystectomy Social History Smoking and tobacco/nicotine status: former use of tobacco/nicotine Quit status (tobacco/nicotine): has quit using Year quit tobacco: 2000 Alcohol intake: current Alcohol intake frequency: holidays/special occasions only Alcohol type: wine Substance/Drug Use: never Current gender identity: Female Female Reproductive History: Spontaneous abortions: No Physical Exam Const: GENERAL APPEARANCE: cooperative, lethargic and frail appearing; not ill appearing NUTRITIONAL APPEARANCE: thin ORIENTATION/CONSCIOUSNESS: Yes lethargic HENMT: COMMON NORMALS: normocephalic, atraumatic and Normal external nose present HEAD & SCALP: normocephalic and atraumatic FACE & SINUS: normal facial exam and face symmetric NOSE: Normal external nose present and Normal nares present Eye: COMMON NORMALS: Equal, round and reactive pupils present and EOMs intact bilaterally PUPIL: Yes Equal, round and reactive pupils present Neck/C-Spine: GENERAL: Yes trachea midline Chest: CHEST: Yes Symmetrical chest wall rise Resp: COMMON NORMALS: normal respiratory effort, No use of accessory muscles and clear to auscultation bilaterally AUSCULTATION: clear to auscultation bilaterally Cardio: COMMON NORMALS: regular rate and regular rhythm RATE: regular rate RHYTHM: regular rhythm GI: COMMON NORMALS: Normal to inspection, nondistended, normoactive bowel sounds present, Soft to palpation and non-tender PALPATION: Yes Soft to palpation Extremity: COMMON NORMALS: no pedal edema Neuro: LIOR COMA SCALE: document GCS findings Lior coma scale eye opening: To sound Lior coma scale verbal response: Orientated Clayton coma scale motor response: Obey commands Clayton coma scale total score: 14 SENSORIUM/ORIENTATION: Yes lethargic Psych: COMMON NORMALS: cooperative Course Vital Signs: Vital signs: Vital Signs Temperature 98.5 F 07/25/23 20:16 Pulse Rate 59 L 07/25/23 20:16 Respiratory Rate 16 07/25/23 20:16 Blood Pressure 94/64 07/25/23 20:16 Pulse Oximetry 87 L 07/25/23 20:16 Oxygen Delivery Me thod Room Air 07/25/23 20:16 MDM - Altered Mental Status Medical Decision Making Blood pressure 103/55, saturations 100%. Temperature 98.5 respiration 16. She awakens to voice. She is otherwise mildly lethargic. Hemoglobin is 11, plate let count 124. Potassium is 3.0 and is repleted. First troponin is 13. Second troponin pending. Second opponent is stable. Urinalysis shows possible mild urinary tract infection which will be treated. She has walked to the bathroom without assistance under close observation. She will be allowed discharge. Lab Data 07/25/23 20:41 07/25/23 20:41 Radiology Impressions Chest X-Ray 07/25/23 20:34 IMPRESSION: No acute findings. Head CT 07/25/23 20:34 IMPRESSION: 1. No acute intracranial abnormality. 2. Mild age-related changes. Laboratory Results WBC 7.99 10^3/uL (3.29-11.43) 07/25/23 20:41 RBC 3.44 10^6/uL (3.85-5.65) L 07/25/23 20:41 Hgb 10.80 g/dL (11.27-16.99) L 07/25/23 20:41 Hct 33.8 % (36-47) L 07/25/23 20:41 MCV 98.3 fl (85-98) H 07/25/23 20:41 MCH 31.4 pg (27-33) 07/25/23 20:41 MCHC 32.0 g/dL (30-55) 07/25/23 20:41 RDW 11.9 % (12.1-15.1) L 07/25/23 20:41 Plt Count 124 10^3/cmm (157-399) L 07/25/23 20:41 MPV 11.9 fL (7.4-10.4) H 07/25/23 20:41 Neut % (Auto) 79.9 % 07/25/23 20:41 Lymph % (Auto) 8.5 % 07/25/23 20:41 [place] % (Auto) 8.3 % 07/25/23 20:41 Eos % (Auto) 2.1 % 07/25/23 20:41 Baso % (Auto) 0.8 % 07/25/23 20:41 Neut # (Auto) 6.39 10^3/uL (1.8-7.7) 07/25/23 20:41 Lymph # (Auto) 0.7 10^3/uL (0.8-4.8) L 07/25/23 20:41 [place] # (Auto) 0.7 10^3/uL (0.2-0.9) 07/25/23 20:41 Eos # (Auto) 0.2 10^3/uL (0.0-0.8) 07/25/23 20:41 Baso # (Auto) 0.1 10^3/uL (0.0-0.1) 07/25/23 20:41 Nucleated RBC % (auto) 0 % 07/25/23 20:41 Nucleated RBCs # 0.0 /100WBC 07/25/23 20:41 PT 14.00 SECONDS (12.1-14.9) 07/25/23 20:41 INR 1.05 (0.8-1.2) 07/25/23 20:41 APTT 29.8 SECONDS (23.9-36.7) 07/25/23 20:41 Specimen Type Arterial 07/25/23 20:57 Sample Site Brachial, right 07/25/23 20:57 ABG pH 7.38 (7.35-7.45) 07/25/23 20:57 ABG pCO2 39.5 mmHg (35-45) 07/25/23 20:57 ABG pO2 132.0 mmHg (80.0-100.0) H 07/25/23 20:57 ABG HCO3 23.3 mmol/L (22-26) 07/25/23 20:57 ABG Base Excess -1.7 mmol/L (-2.0-2.0) 07/25/23 20:57 Vasyl Test N/a 07/25/23 20:57 Hematocrit 37.5 % (37-47) 07/25/23 20:57 O2 Delivery Device Nc 07/25/23 20:57 O2 Liters/Min 2.0 % 07/25/23 20:57 Passenger Agent ID [email or web address] 07/25/23 20:57 Sodium 135 mmol/L (136-145) L 07/25/23 20:41 Potassium 3.0 mmol/L (3.5-5.1) L 07/25/23 20:41 Chloride 101 mmol/L (98-107) 07/25/23 20:41 Carbon Dioxide 23 mmol/L (22-29) 07/25/23 20:41 Anion Gap 14.0 (5-19) 07/25/23 20:41 BUN 18 mg/dL (8-23) 07/25/23 20:41 Creatinine 1.3 mg/dL (0.5-0.9) H 07/25/23 20:41 GFR Calculation 40.6 mL/min (90-130) L 07/25/23 20:41 Glucose 291 mg/dL (65-115) H 07/25/23 20:41 POC Glucose 181 mg/dL (70-110) H 07/25/23 20:32 Calculated Osmolality 293 mOsm/kg (285-295) 07/25/23 20:41 Lactic Acid 0.9 mmol/L (0.5-2.2) 07/25/23 20:41 Calcium 8.2 mg/dL (8.5-10.5) L 07/25/23 20:41 Total Bilirubin 0.2 mg/dL (0.15-1.2) 07/25/23 20:41 AST 9 U/L (0-32) 07/25/23 20:41 ALT < 5 U/L (0-33) 07/25/23 20:41 Alkaline Phosphatase 95 U/L (35-105) 07/25/23 20:41 Creatine Kinase 29 U/L (26-192) 07/25/23 20:41 Troponin T Baseline 13 ng/L (0-10) H 07/25/23 20:41 Troponin T 120 Minute 12.56 ng/L (0-10) H 07/25/23 22:20 Delta Troponin T -0.44 ABS# (0-10) L 07/25/23 22:20 C-Reactive Protein 61.0 mg/L (0.0-4.9) H 07/25/23 20:41 Total Protein 5.2 g/dL (6.6-8.7) L 07/25/23 20:41 Albumin 3.4 g/dL (3.5-5.2) L 07/25/23 20:41 Globulin 1.8 g/dL (1.3-4.6) 07/25/23 20:41 Urine Color Rula (Yellow) 07/26/23 00:09 Urine Appearance Clear (CLEAR) 07/26/23 00:09 Urine pH 5 (5-7) 07/26/23 00:09 Ur Specific [place] 1.020 (1.005-1.030) 07/26/23 00:09 Urine Protein 1+ (Negative) H 07/26/23 00:09 Urine Glucose (UA) Norm (Normal) 07/26/23 00:09 Urine Ketones 1+ (Negative) H 07/26/23 00:09 Urine Blood 2+ (Negative) H 07/26/23 00:09 Urine Nitrate Negative (Negative) 07/26/23 00:09 Urine Bilirubin 1+ (Negative) H 07/26/23 00:09 Urine Urobilinogen 1 mg/dL (Negative) H 07/26/23 00:09 Ur Leukocyte Esterase 1+ (Negative) H 07/26/23 00:09 Urine RBC 5-10 /hpf (0-2) H 07/26/23 00:09 Urine WBC 5-10 /hpf (0-5) H 07/26/23 00:09 Ur Squamous Epith Cells 0-4 /hpf (0-5) H 07/26/23 00:09 Amorphous Sediment 1+ /hpf 07/26/23 00:09 Urine Bacteria 1+ /hpf (NONE) H 07/26/23 00:09 Urine Mucus 1+ /hpf 07/26/23 00:09 Salicylates < 0.3 mg/dL (3-10) L 07/25/23 20:41 Urine Opiates Screen Negative ng/mL (Negative) 07/26/23 00:09 Acetaminophen < 5.0 ug/mL (10-30) L 07/25/23 20:41 Ur Barbiturates Screen Negative ng/mL (Negative) 07/26/23 00:09 Ur Phencyclidine Scrn Negative ng/mL (Negative) 07/26/23 00:09 Ur Amphetamines Screen Negative ng/mL (Negative) 07/26/23 00:09 U Benzodiazepines Scrn Positive ng/mL (Negative) H 07/26/23 00:09 Urine Cocaine Screen Negative ng/mL (Negative) 07/26/23 00:09 U Marijuana (THC) Screen Positive ng/mL (Negative) H 07/26/23 00:09 Ethyl Alcohol < 10 mg/dL (0-10) 07/25/23 20:41 All radiology interpretation(s) finalized by discharge Discharge Plan Discharge Patient Disposition: Home Clinical Impression: Urinary tract infection, Hypoglycemia, Marijuana intoxication Condition: Stable Prescriptions: New Macrobid 100 mg capsule 100 mg PO BID 7 Days Qty: 14 0RF Rx Instructions: must administer with a meal/food No Action aspirin 81 mg tablet,delayed release (DR/EC) 81 mg PO DAILY Hold Instructions: Resume on 01/02/23. hold for 2 weeks atorvastatin 10 mg tablet 10 mg PO DAILY 90 Days Qty: 90 3RF Hold Instructions: Resume on 01/09/23. hold (DME) Oxygen See Rx Instructions .Route .MEDSUPPLY Qty: 1 0RF Rx Instructions: As directed, 2Liters by nasal cannula with activity. quantity 1, oxygen. one portable concentrator also tramadol 50 mg tablet 50 mg PO TID PRN (Reason: take for moderate to severe pain PRN) Qty: 60 1RF hydroxychloroquine 200 mg tablet 200 mg PO BID Qty: 60 3RF Hold Instructions: Resume on 01/09/23. hold until you see rheumatology tizanidine 4 mg tablet See Rx Instructions .ROUTE .COMPLEX Qty: 120 5RF Dose Instruction: TAKE ONE TABLET BY MOUTH FOUR TIMES A DAY NEEDED FOR MUSCLE SPASTICITY Rx Instructions: TAKE ONE TABLET BY MOUTH FOUR TIMES A DAY NEEDED FOR MUSCLE SPASTICITY amoxicillin-pot clavulanate 875-125 mg tablet 1 tab PO BID Qty: 20 0RF amitriptyline 50 mg tablet 50 mg PO BEDTIME 90 Days Qty: 90 1RF zolpidem 5 mg tablet 5 mg PO BEDTIME PRN (Reason: insomnia) 30 Days Qty: 30 2RF pregabalin 100 mg capsule 100 mg PO TID 30 Days Qty: 90 2RF Protonix 40 mg tablet,delayed release (DR/EC) 40 mg PO BID 90 Days Qty: 180 1RF metoprolol tartrate 25 mg tablet 25 mg PO BID 90 Days Qty: 180 1RF Combivent Respimat 20-100 mcg/actuation mist 1 puff INHALATION QID PRN (Reason: shortness of breath or wheezing) 30 Days Qty: 4 5RF albuterol sulfate [Proventil HFA] 90 mcg/actuation HFA aerosol inhaler 2 puff INHALATION Q6H PRN (Reason: shortness of breath or wheezing) 30 Days Qty: 18 5RF meloxicam 15 mg tablet 15 mg PO DAILY Qty: 30 2RF alprazolam 0.25 mg tablet 0.25 mg PO DAILY PRN (Reason: anxiety) 30 Days Qty: 30 3RF albuterol sulfate 2.5 mg /3 mL (0.083 %) solution for nebulization 2.5 mg INHALATION QID PRN (Reason: shortness of breath or wheezing) promethazine 25 mg tablet See Rx Instructions .ROUTE .COMPLEX Qty: 14 1RF Dose Instruction: TAKE ONE TABLET BY MOUTH EVERY 6 HOURS NEEDED FOR NAUSEA AND VOMITING THIS IS 30 DAY SUPPLY Rx Instructions: TAKE ONE TABLET BY MOUTH EVERY 6 HOURS NEEDED FOR NAUSEA AND VOMITING THIS IS 30 DAY SUPPLY Creon 24,000-76,000 -120,000 unit capsule,delayed release(DR/EC) 1 cap PO TID Qty: 90 0RF Rx Instructions: administer with meals and/or snacks olanzapine 2.5 mg tablet 2.5 mg PO BEDTIME leflunomide 20 mg tablet 20 mg PO DAILY hydroxyzine HCl 25 mg tablet 50 mg PO BID PRN (Reason: Anxiety) fluticasone propionate 50 mcg/actuation spray,suspension 1 spray INTRANASAL Q12H PRN (Reason: Nasal Congestion) Rx Instructions: administer into each nostril Nurtec ODT 75 mg tablet,disintegrating 75 mg PO EVERY OTHER DAY Rx Instructions: Take one tab every other day; may take extra tab at onset of headache Discharge Orders: Discharge ED (Routine); Ordered 07/26/23 Ordered By: Ketan Madera Referrals: Deidra Cid MD [Primary Care Provider] - 1-3 days Patient Instructions: Urinary Tract Infection in Women (ED), Non-diabetic Hypoglycemia (ED), Altered Mental Status (ED), Opioid Safety, Pain Management Activity Restrictions/Additional Instructions: Check your sugar often for the next 24 hours. Abstain from marijuana use if possible, as it can cause you to fall. Drink plenty of clear liquids for rehydration. Medication as directed. Return for any concerning symptoms. See your doctor this week. Coding Level of Care Code ED Supply Chain Logistics Manager for Mirna Turpin
[2023-07-25 22:46] LABS: Troponin 5 2HR 12.56 ng/L (0-10); Troponin 5 2HR Delta -0.44 ABS# (0-10)
[2023-07-26 00:26] LABS: Amphetamines Screen Urine Negative (Negative); Barbiturates Screen Urine Negative (Negative); Benzodiazepines Screen Urine Positive (Negative); Cocaine Screen Urine Negative (Negative); Opiate Screen Urine Negative (Negative); PCP Screen Urine Negative (Negative); THC Screen Urine Positive (Negative)
[2023-07-26] MEDS: potassium chloride oral liq 20 mEq/15 mL UDC 40 MEQ PO (00:26)
[2023-07-26 00:29] LABS: Urine Appearance Clear (CLEAR); Urine Color Amber (Yellow); pH Urine 5 (5-7)
[2023-07-26 00:30] LABS: Add Urine Culture? Yes; Add Urine Microscopic? YES; Amorphous Sediment Urine 1+ /hpf; Bacteria Urine 1+ /hpf; Bilirubin Urine 1+ (Negative); Blood Urine 2+ (Negative); Glucose Urine UA Norm (Normal); Ketones Urine 1+ (Negative); Leukocyte Esterase Urine 1+ (Negative); Mucus Urine 1+ /hpf; Nitrate Urine Negative (Negative); Protein Urine 1+ (Negative); Squamous Epithelial Cell Urine 0-4 /hpf (0-5); Urobilinogen Urine 1 mg/dL (Negative)
[2023-07-26] MEDS: cefTRIAXone 1,000 MG in sodium chloride 0.9% (plus) 50 ML 100 MG IV (00:55)
[2023-07-26 06:55] LABS: Glucose Point of Care 153 mg/dL (70-110)
[2023-07-26 07:38] VITALS: BP 102/58; PULSE 101; RESP 16; TEMP 36.8; O2SAT 94
[2023-07-26] MEDS: acetaminophen 325 mg Tablet 650 MG PO (08:29)
== END 2023-07-26 09:23 | disposition home or self-care (01) ==
PROVIDERS: Emergency Provider Emergency Medicine; PCP Family Medicine
DX: N39.0 Urinary tract infection, site not specified (principal); E16.2 Hypoglycemia, unspecified; F12.929 Cannabis use, unspecified with intoxication, unspecified; Z79.82 Long term (current) use of aspirin; Z87.891 Personal history of nicotine dependence; I25.10 Atherosclerotic heart disease of native coronary artery without angina pectoris; I11.0 Hypertensive heart disease with heart failure; I50.9 Heart failure, unspecified; J44.9 Chronic obstructive pulmonary disease, unspecified; E78.5 Hyperlipidemia, unspecified
CPT/HCPCS: 36415; 36416; 36600; 51701; 70450; 71045; 80053; 80306; 80307; 81001; 82550; 82803; 82962; 83605; 84484; 85025; 85610; 85730; 86140; 87086; 93005; 96361; 96374; 99285; J0696; J7030

== ENCOUNTER → 2023-08-10 10:47 | Outpatient (BNVA) | payer MEDICARE, MEDICAID, SELFPAY | PROVIDERS: PCP Family Medicine; Visit Provider Specialist | DX: M16.11 Unilateral primary osteoarthritis, right hip (principal); M70.61 Trochanteric bursitis, right hip; M87.051 Idiopathic aseptic necrosis of right femur | CPT/HCPCS: 20610; 73502; 99213; J1100; J2795; J3301 ==

== ENCOUNTER → 2023-08-17 08:10 | Outpatient (BNVA) | payer MEDICARE, MEDICAID, SELFPAY | PROVIDERS: PCP Family Medicine; Visit Provider Anesthesiology Pain Medicine | DX: M72.0 Palmar fascial fibromatosis [Dupuytren] (principal); M48.062 Spinal stenosis, lumbar region with neurogenic claudication; M47.812 Spondylosis without myelopathy or radiculopathy, cervical region; G89.29 Other chronic pain; M48.02 Spinal stenosis, cervical region | CPT/HCPCS: 99214 ==

== ENCOUNTER → 2023-09-15 13:15 | Outpatient (BNVA) | payer OTHER, MEDICAID, SELFPAY | PROVIDERS: PCP Family Medicine; Visit Provider Internal Medicine Rheumatology | DX: Z79.899 Other long term (current) drug therapy (principal); M72.0 Palmar fascial fibromatosis [Dupuytren]; M19.90 Unspecified osteoarthritis, unspecified site; Z71.85 Encounter for immunization safety counseling; R41.3 Other amnesia | CPT/HCPCS: 80076; 82565; 85025; 86140; 99214 ==

== ENCOUNTER → 2023-09-21 08:26 | Outpatient (BNVA) | payer MEDICARE, MEDICAID, SELFPAY | PROVIDERS: PCP Family Medicine; Visit Provider Anesthesiology Pain Medicine | DX: M48.062 Spinal stenosis, lumbar region with neurogenic claudication (principal); M47.812 Spondylosis without myelopathy or radiculopathy, cervical region; G89.29 Other chronic pain | CPT/HCPCS: 99214 ==

== ENCOUNTER → 2023-10-22 10:16 | Outpatient (BNVA) | payer MEDICARE, MEDICAID, SELFPAY | PROVIDERS: PCP Family Medicine; Visit Provider Anesthesiology Pain Medicine | DX: M79.18 Myalgia, other site (principal); M47.27 Other spondylosis with radiculopathy, lumbosacral region; G89.29 Other chronic pain; M48.062 Spinal stenosis, lumbar region with neurogenic claudication; M47.812 Spondylosis without myelopathy or radiculopathy, cervical region | CPT/HCPCS: 20553; 99214; J1030; J3490 ==

== ENCOUNTER → 2023-10-26 13:46 | Outpatient (BNVA) | payer MEDICARE, MEDICAID, SELFPAY | PROVIDERS: PCP Family Medicine; Visit Provider Specialist | DX: M72.0 Palmar fascial fibromatosis [Dupuytren] (principal) | CPT/HCPCS: 73130; 99213 ==

== ENCOUNTER 2023-10-29 12:32 | Outpatient (CLI) | payer MEDICARE, MEDICAID, SELFPAY ==
--- NOTE | 2023-10-29 12:37 | MM_ITS ---
WS: [id number] Bilateral screening 3D tomosynthesis digital mammogram, 10/29/2023 Clinical Data: Z12.39 - Encounter for other screening for malignant neop... Comparison: 08/01/2020, 06/27/2013, 07/07/2014, 09/23/2011, 06/07/2008, 05/18/2007. Findings: The breast parenchymal pattern shows fibroglandular tissue no spiculated masses or clustered calcific ations are seen. There are no secondary signs of carcinoma. There are vascular calcifications in both breasts. Impression: 1. Negative bilateral mammogram unchanged. 2. Recommend annual screening mammograms. MM/[place] [id number] BIRADS: 1-Negative FOLLOW UP: 1 Year Follow-up The CAD food and beverage checker was used.
--- NOTE | 2023-10-29 13:00 | XR_ITS ---
WS: [id number] SCREENING DEXA SCAN [facility] CLINICAL INFORMATION: Z13.820 - Encounter for screening for osteoporosis COMPARISON: 2019 FINDINGS: The L1-L4 bone mineral density measures 0.866 g/cm2. This corresponds to a T score score of -2.6 and Z score of -0.7. Left femoral neck bone mineral density measures 0.613 g/cm2. This corresponds to a T score of -3.1 an d Z score of -1.5. Right femoral neck bone mineral density measures 0.662 g/cm2. This corresponds to a T score -2.7of an d Z score of -1.1. Mean femoral neck bone mineral density measures 0.637 g/cm2. This corresponds to a T score of -2.9 an d Z score of -1.3. IMPRESSION: Osteoporosis lumbar spine. Osteoporosis femoral necks. Patient's FRAX calculated 10 year probability for major osteoporotic fracture is 30.5% and osteoporot ic hip fracture is 11.9%. Bone mineral density lumbar spine increased 14.1%. Bone mineral density femoral necks decreased -0.3%
== END 2023-10-29 12:33 | disposition home or self-care (01) ==
LOC: RAD 12:33
PROVIDERS: PCP Family Medicine; Visit Provider Family Medicine
DX: Z12.31 Encounter for screening mammogram for malignant neoplasm of breast; R92.1 Mammographic calcification found on diagnostic imaging of breast; Z13.820 Encounter for screening for osteoporosis; Z78.0 Asymptomatic menopausal state; M81.0 Age-related osteoporosis without current pathological fracture
CPT/HCPCS: 77063; 77067; 77080

== ENCOUNTER 2024-01-15 08:48 | Emergency (ER) | payer MEDICARE, MEDICAID, SELFPAY ==
[2024-01-15 08:49] VITALS: BP 131/93; PULSE 77; RESP 18; TEMP 36.4; O2SAT 96
--- NOTE | 2024-01-15 08:59 | ECG_ITS ---
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 Measurements Intervals [place] Rate: 77 P: 80 VT: 216 QRS: 81 QRSD: 90 T: 66 QT: 447 QTc: 507 Interpretive Statements SINUS RHYTHM WITH FIRST DEGREE AV BLOCK NONSPECIFIC T-WAVE ABNORMALITY PROLONGED QT INTERVAL Compared to ECG 07/25/2023 20:22:26 T-wave abnormality now present Prolonged QT interval now present Myocardial infarct finding no longer present Electronically Signed On 01-15-2024 14:25:55 CDT by Wilberto Breaux M.D. [id number]
--- NOTE | 2024-01-15 08:59 | XR_ITS ---
WS: [id number] XR chest 1V portable [id number] REASON FOR EXAM: dyspnea/cough FINDINGS: The heart and mediastinum are within normal limits. Calcified granulomas disease bilaterally. Compared to previous examination of 07/25/2023, there appears to be interval development of reticular interstitial lung opacities in the right lower lung field. Findings are somewhat subtle/equivocal. No other interval changes identified compared to previous exam. XR/XR chest 1V portable [id number] IMPRESSION: Equivocal abnormality in the right lower lobe. Potentially this could represent an acute pneumonitis and follow-up exam is recommended.
[2024-01-15] MEDS: ondansetron 2 mg/ML SDV 2 mL 4 MG IVP (09:03)
[2024-01-15] MEDS: sodium chloride 0.9% 1,000 ML 999 ML IV (09:05)
[2024-01-15 09:24] VITALS: PULSE 79; RESP 18; O2SAT 95
--- NOTE | 2024-01-15 09:48 | W.ED.NAVMDI ---
HPI - Nausea/Vomiting/Diarrhea General: Chief complaint: Nausea/Vomiting/Diarrhea Stated complaint: N/V Time Seen by Provider: 01/15/24 08:58 Source: patient Mode of arrival: ambulatory History of Present Illness: 68-year-old female presents emergency room complaining of epigastric upper abdominal pain. She has had recurrent COVID pancreatitis in the past she does not drink any alcohol. In the past she is not known what particular sets it off. She denies any fever sweats chills she has been very nauseous no hematemesis or coffee-ground emesis MD elicited complaint: nausea, vomiting and diarrhea Associated nausea: Yes Location of pain: Epigastric Pain consistency: constant Severity: moderate Quality: cramping Exacerbating factors: eating Relieving factors: none Associated symtoms: Reports nausea; Denies altered mental status, anxiety, bloating, change in vision, chest pain, cough, diaphoresis, decreased urine output, dizziness, dysuria, epistaxis, fatigue, fecal incontinence, fevers/chills, headache(s), anorexia, malaise, myalgias, numbness, palpitations, rash, short of breath, syncope, tenesmus, tinnitus or weakness Review of Systems Const: Denies: fatigue, malaise or diaphoresis Eyes: Denies: change in vision ENMT: Denies: tinnitus or epistaxis Card: Denies: chest pain, palpitations or syncope Resp: Denies: dyspnea GI: Reports: abdominal pain and nausea; Denies: vomiting, bloating or fecal incontinence : Denies: dysuria Musc: Denies: neck pain or back pain Skin/Breast: Denies: rash Neuro: Denies: headache(s) or dizziness Psych: Denies: anxiety PFSH ED PFSH: Medical History Psychiatric care Diarrhea Immunization counseling High risk medication use Inflammatory arthritis Balance disorder Weakness Memory loss Dupuytrens contracture Polyarthralgia Elevated liver enzymes resolved Bradycardia with 51-60 beats per minute Enrolled in chronic care management Chronic pancreatitis ZAYNAB (generalized anxiety disorder) Prozac caused tachycardia. Allergic rhinitis Hx of acute pancreatitis Due to HCTZ CHF (congestive heart failure) CAD (coronary artery disease) Lumbosacral spondylosis Hyperlipidemia GERD (gastroesophageal reflux disease) HTN (hypertension), benign HCTZ DC due to pancreatitis Chronic migraine Insomnia Was previously on Ambien 10 mg. Weaned down to 5 mg. COPD (chronic obstructive pulmonary disease) Surgical History Hx of colonoscopy H/O: hysterectomy H/O tubal ligation H/O section S/P cataract surgery S/P cholecystectomy H/O foot surgery Social History Smoking and tobacco/nicotine status: former use of tobacco/nicotine Quit status (tobacco/nicotine): has quit using Year quit tobacco: 2000 Alcohol intake: current Alcohol intake frequency: holidays/special occasions only Alcohol type: wine Substance/Drug Use: never Current gender identity: Female Female Reproductive History: Spontaneous abortions: No Physical Exam Const: EXAM LIMITATIONS: no altered mental status GENERAL APPEARANCE: cooperative and comfortable ORIENTATION/CONSCIOUSNESS: Yes awake, Yes oriented to person, Yes oriented to place and Yes oriented to time HENMT: COMMON NORMALS: normocephalic, atraumatic and hearing grossly normal bilaterally HEAD & SCALP: normocephalic and atraumatic Resp: COMMON NORMALS: normal respiratory effort, No retractions, No use of accessory muscles and clear to auscultation bilaterally AUSCULTATION: clear to auscultation bilaterally Cardio: COMMON NORMALS: regular rate, regular rhythm and No murmurs present (Cardio) RATE: regular rate RHYTHM: regular rhythm GI: COMMON NORMALS: No hepatosplenomegaly present AUSCULTATION: Yes normoactive bowel sounds PALPATION: Yes Tenderness to palpation present (GI) (Epigastric upper abdomen), No Guarding due to palpation present (GI) and Yes No hepatosplenomegaly present Extremity: COMMON NORMALS: normal to inspection, capillary refill normal, no clubbing, cyanosis or edema, no calf tenderness and no pedal edema Neuro: SENSORIUM/ORIENTATION: Yes oriented to person, Yes oriented to place and Yes oriented to time Skin: COMMON NORMALS: no rashes or lesions noted GENERAL SKIN EXAM: no rashes or lesions noted Course Vital Signs: Vital signs: Vital Signs Temperature 97.6 F 01/15/24 08:49 Pulse Rate 77 01/15/24 10:24 Respiratory Rate 17 01/15/24 09:55 Blood Pressure 131/93 01/15/24 08:49 Pulse Oximetry 94 01/15/24 10:24 Oxygen Delivery Me thod Room Air 01/15/24 08:49 MDM - Nausea/Vomiting/Diarrhea Medical Decision Making CT shows colitis. There is thickening in the transverse and descending colon. Will start her on Cipro and Flagyl. She not had any hematochezia. Her hemoglobin is stable clear liquid diet for 24 to 48 hours hydrocodone and promethazine as needed if not improving return to the emergency room Lab Data 01/15/24 09:30 01/15/24 09:30 Radiology Impressions Chest X-Ray 01/15/24 08:59 IMPRESSION: Equivocal abnormality in the right lower lobe. Potentially this could represent an acute pneumonitis and follow-up exam is recommended. Abdomen/Pelvis CT 01/15/24 10:11 IMPRESSION: Wall thickening of the transverse and descending colon, concerning for colitis. Laboratory Results WBC 6.84 10^3/uL (3.29-11.43) 01/15/24 09:30 RBC 3.72 10^6/uL (3.85-5.65) L 01/15/24 09:30 Hgb 11.90 g/dL (11.27-16.99) 01/15/24 09:30 Hct 37.6 % (36-47) 01/15/24 09:30 MCV 101.1 fl (85-98) H 01/15/24 09:30 MCH 32.0 pg (27-33) 01/15/24 09:30 MCHC 31.6 g/dL (30-55) 01/15/24 09:30 RDW 12.9 % (12.1-15.1) 01/15/24 09:30 Plt Count 150 10^3/cmm (157-399) L 01/15/24 09:30 MPV 10.9 fL (7.4-10.4) H 01/15/24 09:30 Neut % (Auto) 72.1 % 01/15/24 09:30 Lymph % (Auto) 15.4 % 01/15/24 09:30 [place] % (Auto) 10.5 % 01/15/24 09:30 Eos % (Auto) 0.6 % 01/15/24 09:30 Baso % (Auto) 1.0 % 01/15/24 09:30 Neut # (Auto) 4.93 10^3/uL (1.8-7.7) 01/15/24 09:30 Lymph # (Auto) 1.1 10^3/uL (0.8-4.8) 01/15/24 09:30 [place] # (Auto) 0.7 10^3/uL (0.2-0.9) 01/15/24 09:30 Eos # (Auto) 0.0 10^3/uL (0.0-0.8) 01/15/24 09:30 Baso # (Auto) 0.1 10^3/uL (0.0-0.1) 01/15/24 09:30 Nucleated RBC % (auto) 0 % 01/15/24 09:30 Nucleated RBCs # 0.0 /100WBC 01/15/24 09:30 Sodium 143 mmol/L (136-145) 01/15/24 09:30 Potassium 3.6 mmol/L (3.5-5.1) 01/15/24 09:30 Chloride 108 mmol/L (98-107) H 01/15/24 09:30 Carbon Dioxide 24 mmol/L (22-29) 01/15/24 09:30 Anion Gap 14.6 (5-19) 01/15/24 09:30 BUN 22 mg/dL (8-23) 01/15/24 09:30 Creatinine 1.1 mg/dL (0.5-0.9) H 01/15/24 09:30 GFR Calculation 49.2 mL/min (90-130) L 01/15/24 09:30 Glucose 94 mg/dL (65-115) 01/15/24 09:30 Calculated Osmolality 299 mOsm/kg (285-295) H 01/15/24 09:30 Lactic Acid 0.9 mmol/L (0.5-2.2) 01/15/24 09:30 Calcium 8.4 mg/dL (8.5-10.5) L 01/15/24 09:30 Magnesium 1.7 mg/dL (1.7-2.3) 01/15/24 09:30 Total Bilirubin 0.2 mg/dL (0.15-1.2) 01/15/24 09:30 AST 12 U/L (0-32) 01/15/24 09:30 ALT 8 U/L (0-33) 01/15/24 09:30 Alkaline Phosphatase 106 U/L (35-105) H 01/15/24 09:30 Total Protein 5.9 g/dL (6.6-8.7) L 01/15/24 09:30 Albumin 3.4 g/dL (3.5-5.2) L 01/15/24 09:30 Globulin 2.5 g/dL (1.3-4.6) 01/15/24 09:30 Triglycerides 141 mg/dL (0-150) 01/15/24 09:30 Lipase 35 U/L (13-60) 01/15/24 09:30 Urine Color Yellow (Yellow) 01/15/24 10:10 Urine Appearance Hazy (CLEAR) A 01/15/24 10:10 Urine pH 5 (5-7) 01/15/24 10:10 Ur Specific [place] 1.025 (1.005-1.030) 01/15/24 10:10 Urine Protein Trace (Negative) 01/15/24 10:10 Urine Glucose (UA) Norm (Normal) 01/15/24 10:10 Urine Ketones 1+ (Negative) H 01/15/24 10:10 Urine Blood Neg (Negative) 01/15/24 10:10 Urine Nitrate Negative (Negative) 01/15/24 10:10 Urine Bilirubin 1+ (Negative) H 01/15/24 10:10 Urine Urobilinogen Norm mg/dL (Negative) 01/15/24 10:10 Ur Leukocyte Esterase 2+ (Negative) H 01/15/24 10:10 Urine RBC None /hpf (0-2) 01/15/24 10:10 Urine WBC 5-10 /hpf (0-5) H 01/15/24 10:10 Ur Squamous Epith Cells 10-15 /hpf (0-5) H 01/15/24 10:10 Amorphous Sediment Not Reportable 01/15/24 10:10 Urine Bacteria 1+ /hpf (NONE) H 01/15/24 10:10 All radiology interpretation(s) finalized by discharge Discharge Plan Discharge Patient Disposition: Home Clinical Impression: Colitis Condition: Stable Prescriptions: New Cipro 500 mg tablet 500 mg PO BID Qty: 14 0RF metronidazole 500 mg tablet 500 mg PO BID 7 Days Qty: 14 0RF hydrocodone-acetaminophen 5-325 mg tablet 1 tab PO Q6H PRN (Reason: pain) Qty: 20 0RF promethazine 25 mg tablet 25 mg PO Q6H PRN (Reason: nausea and vomiting) Qty: 20 0RF No Action aspirin 81 mg tablet,delayed release (DR/EC) 81 mg PO QAM Hold Instructions: Resume on 01/02/23. hold for 2 weeks (DME) Oxygen See Rx Instructions .Route .MEDSUPPLY Qty: 1 0RF Rx Instructions: As directed, 2Liters by nasal cannula with activity. quantity 1, oxygen. one portable concentrator also amitriptyline 50 mg tablet 50 mg PO BEDTIME 90 Days Qty: 90 1RF Combivent Respimat 20-100 mcg/actuation mist 1 puff INHALATION QID PRN (Reason: shortness of breath or wheezing) 30 Days Qty: 4 5RF albuterol sulfate [Proventil HFA] 90 mcg/actuation HFA aerosol inhaler 2 puff INHALATION Q6H PRN (Reason: shortness of breath or wheezing) 30 Days Qty: 18 5RF meloxicam 15 mg tablet 15 mg PO DAILY 90 Days Qty: 90 1RF metoprolol tartrate 25 mg tablet 25 mg PO BID 90 Days Qty: 180 1RF Protonix 40 mg tablet,delayed release (DR/EC) 40 mg PO BID 90 Days Qty: 180 1RF fluticasone propionate 50 mcg/actuation spray,suspension 1 spray INTRANASAL Q12H PRN (Reason: Nasal Congestion) Qty: 16 5RF Rx Instructions: administer into each nostril hydroxychloroquine 200 mg tablet 200 mg PO BID Qty: 180 1RF Hold Instructions: Resume on 01/09/23. hold until you see rheumatology leflunomide [Arava] 20 mg tablet 20 mg PO DAILY Qty: 90 1RF alprazolam 0.5 mg tablet 0.5 mg PO DAILY PRN (Reason: anxiety) 30 Days Qty: 30 3RF pregabalin 100 mg capsule 100 mg PO TID 30 Days Qty: 90 3RF tizanidine 4 mg tablet 4 mg PO Q4H PRN (Reason: Muscle Spasm) 30 Days Qty: 180 5RF Creon 24,000-76,000 -120,000 unit capsule,delayed release(DR/EC) 1 cap PO TID Qty: 90 0RF Rx Instructions: administer with meals and/or snacks promethazine 25 mg tablet 25 mg PO Q6H PRN (Reason: Nausea And Vomiting) atorvastatin 10 mg tablet 10 mg PO QPM Discharge Orders: Discharge ED (Routine); Ordered 01/15/24 Ordered By: Oleksandr Castro Referrals: Deidra Cid MD [Primary Care Provider] - Discharge Diet: Clear Liquid Discharge Activity: Increase activity as tolerated Patient Instructions: Clear Liquid Diet (ED), Colitis (ED), Opioid Safety, Pain Management Activity Restrictions/Additional Instructions: Thank you for choosing [facility] for your healthcare needs today. Please realize this is an emergency room and that we are providing you with a medical screening exam and this may not be complete and all inclusive of all the testing and or work up that you may need to determine your ailment or severity of your illness. It is very important that you follow up as instructed or that you return to the Emergency Department should you have concerns or if your condition changes or worsens in any way. You were seen today with complaints of abdominal pain. White count was not elevated CT showed moderate colitis. Recommend starting oral antibiotics you are prescribed today clinical diet for the next 24 to 48 hours you can use the hydrocodone and promethazine as needed to relieve pain nausea and vomiting. After 2 days advance her diet as tolerated follow-up with your primary care doctor Coding Level of Care Code ED Ethical Hacker for Mirna Turpin
[2024-01-15 09:52] LABS: Basophils # 0.1 10^3/uL (0.0-0.1); Eosinophils % 0.6 %; Hematocrit 37.6 % (36-47); Lymphocytes # 1.1 10^3/uL (0.8-4.8); Lymphocytes % 15.4 %; Mean Corpuscular HGB Conc 31.6 g/dL (30-55); Mean Corpuscular Volume 101.1 fl (85-98); Mean Platelet Volume 10.9 fL (7.4-10.4); Monocytes # 0.7 10^3/uL (0.2-0.9); Monocytes % 10.5 %; Neutrophils # 4.93 10^3/uL (1.8-7.7); Neutrophils % 72.1 %; Nucleated Red Blood Cells % 0 %; Platelet Count 150 10^3/cmm (157-399); Red Blood Count 3.72 10^6/uL (3.85-5.65); Red Cell Distribution Width 12.9 % (12.1-15.1); White Blood Count 6.84 10^3/uL (3.29-11.43)
[2024-01-15] MEDS: diphenhydrAMINE 50 mg/mL SDV 1mL 25 MG IVP (09:53)
[2024-01-15 09:55] VITALS: RESP 17; O2SAT 97
[2024-01-15] MEDS: morphine 4 mg/mL SDV 1 mL IVP (09:55)
--- NOTE | 2024-01-15 10:01 | PC.PHAR ---
PT STATES TOOK AM MEDICATIONS-NOT SURE IF THEY ALL STAYED DOWN.
--- NOTE | 2024-01-15 10:11 | CTR_ITS ---
PROCEDURE INFORMATION: Exam: CT Abdomen And Pelvis Without Contrast Exam date and time: 01/15/2024 10:27 AM Age: 68 years old Clinical indication: Nausea and vomiting; Prior surgery; Surgery date: 6+ months; Surgery type: Hysto /csection; Patient HX: Nausea/vomiting x 4 days; Additional info: Abdominal pain TECHNIQUE: Imaging protocol: Computed tomography of the abdomen and pelvis without contrast. Radiation optimization: All CT scans at this facility use at least one of these dose optimization techniques: automated exposure control; mA and/or kV adjustment per patient size (includes targeted exams where dose is matched to clinical indication); or iterative reconstruction. COMPARISON: CT abdomen pelvis wo con [id number] 12/16/2022 4:07 PM RADIATION DOSE METRICS: Total DLP (mGy-cm): 344 FINDINGS: Liver: Normal appearance of the liver. Gallbladder and bile ducts: Status post cholecystectomy. Pancreas: Pancreatic atrophy. Spleen: Unremarkable. Adrenal glands: Unremarkable. Kidneys and ureters: No hydronephrosis. Stomach and bowel: Wall thickening of the transverse and descending colon. No obstruction. Appendix: No evidence of appendicitis. Intraperitoneal space: No free air. No significant fluid collection. Vasculature: Moderate atherosclerotic calcifications. Lymph nodes: No enlarged lymph nodes. Urinary bladder: Unremarkable as visualized. Reproductive: Status post hysterectomy. Bones/joints: Unremarkable. No acute fracture. Soft tissues: Unremarkable. Other findings: Emphysema. CT/CT abdomen pelvis wo con [id number] IMPRESSION: Wall thickening of the transverse and descending colon, concerning for colitis.
[2024-01-15 10:14] LABS: Alanine Aminotransferase 8 U/L (0-33); Albumin Level 3.4 g/dL (3.5-5.2); Alkaline Phosphatase 106 U/L (35-105); Anion Gap 14.6 (5-19); Aspartate Amino Transferase 12 U/L (0-32); Blood Urea Nitrogen 22 mg/dL (8-23); Calcium 8.4 mg/dL (8.5-10.5); Carbon Dioxide 24 mmol/L (22-29); Chloride 108 mmol/L (98-107); Creatinine Clr Calc Pharmacy 41.7918; Globulin 2.5 g/dL (1.3-4.6); Glomerular Filtration Rate 49.2 mL/min (90-130); Glucose 94 mg/dL (65-115); Lipase 35 U/L (13-60); Magnesium 1.7 mg/dL (1.7-2.3); Osmolality Calculated 299 mOsm/kg (285-295); Potassium 3.6 mmol/L (3.5-5.1); Sodium 143 mmol/L (136-145); Total Bilirubin 0.2 mg/dL (0.15-1.2); Total Protein 5.9 g/dL (6.6-8.7); Triglycerides 141 mg/dL (0-150)
[2024-01-15 10:15] LABS: Lactic Sepsis W/Reflex 0.9 mmol/L (0.5-2.2)
[2024-01-15 10:24] VITALS: PULSE 77; O2SAT 94
[2024-01-15 10:46] LABS: Urine Appearance Hazy (CLEAR); Urine Color Yellow (Yellow); pH Urine 5 (5-7)
[2024-01-15 10:47] LABS: Add Urine Microscopic? YES; Bilirubin Urine 1+ (Negative); Blood Urine Neg (Negative); Glucose Urine UA Norm (Normal); Ketones Urine 1+ (Negative); Leukocyte Esterase Urine 2+ (Negative); Nitrate Urine Negative (Negative); Protein Urine Trace (Negative); Specific Gravity, Urine 1.025 (1.005-1.030); Urobilinogen Urine Norm (Negative)
[2024-01-15 10:49] LABS: Add Urine Culture? No; Bacteria Urine 1+ /hpf
== END 2024-01-15 11:33 | disposition home or self-care (01) ==
PROVIDERS: Emergency Provider Family Medicine; PCP Family Medicine
DX: K52.9 Noninfective gastroenteritis and colitis, unspecified (principal); Z79.82 Long term (current) use of aspirin; Z87.891 Personal history of nicotine dependence; I25.10 Atherosclerotic heart disease of native coronary artery without angina pectoris; I11.0 Hypertensive heart disease with heart failure; I50.9 Heart failure, unspecified; E78.5 Hyperlipidemia, unspecified; J44.9 Chronic obstructive pulmonary disease, unspecified
CPT/HCPCS: 36415; 71045; 74176; 80053; 81001; 83605; 83690; 83735; 84478; 85025; 87040; 93005; 96374; 96375; 99285; J1200; J2270; J2405; J7030

== ENCOUNTER 2024-02-16 06:00 | Outpatient (RCR) | payer MEDICARE, MEDICAID, SELFPAY | END 2024-03-13 23:59 | disposition home or self-care (01) | LOC: MPT 06:00 | PROVIDERS: PCP Family Medicine; Visit Provider Internal Medicine Rheumatology | DX: R29.6 Repeated falls (principal) | CPT/HCPCS: 97110; 97112; 97162 ==

== ENCOUNTER 2024-03-14 06:00 | Outpatient (RCR) | payer MEDICARE, MEDICAID, SELFPAY | END 2024-04-13 23:59 | disposition home or self-care (01) | LOC: MPT 06:00 | PROVIDERS: PCP Family Medicine; Visit Provider Internal Medicine Rheumatology | DX: R29.6 Repeated falls (principal) | CPT/HCPCS: 97110; 97112 ==

== ENCOUNTER → 2024-07-04 10:56 | Outpatient (BNVA) | payer MEDICARE, MEDICAID, SELFPAY | PROVIDERS: PCP Family Medicine; Visit Provider Family Medicine | DX: I10 Essential (primary) hypertension (principal); M19.90 Unspecified osteoarthritis, unspecified site; E78.2 Mixed hyperlipidemia; Z79.899 Other long term (current) drug therapy | CPT/HCPCS: 80053; 80061; 80076; 82565; 85025; 85651; 86140 ==

== ENCOUNTER → 2025-01-04 10:09 | Outpatient (BNVA) | payer MEDICARE, MEDICAID, SELFPAY ==
[2024-08-02 09:21] VITALS: BP 133/87; BMI 21.7
== END ==
PROVIDERS: PCP Family Medicine; Visit Provider Family Medicine
DX: M06.00 Rheumatoid arthritis without rheumatoid factor, unspecified site (principal); Z79.899 Other long term (current) drug therapy
CPT/HCPCS: 80076; 82565; 85025; 85651; 86140

== ENCOUNTER 2025-02-10 06:35 | Inpatient (IN) | payer OTHER, MEDICAID, SELFPAY ==
[2024-08-02 09:21] VITALS: BP 133/87; BMI 21.7
[2025-02-10] VITALS (59 sets, daily range): BP systolic 102–163; BP diastolic 45–87; PULSE 72–149; RESP 15–27; TEMP 36.4–36.7; O2SAT 90–100; BMI 20.7
--- NOTE | 2025-02-10 06:42 | ECG_ITS ---
[facility]: 2025[facility]02[facility]10 Pat Name: Chery Tsang Department: Room: Gender: Female Academic Intern: : 1955 Requested By: Oleksandr Sahu Order Number: [id number] Saad MD: Wilberto Breaux M.D. Measurements Intervals [place] Rate: 134 P: 85 AK: 161 QRS: 91 QRSD: 86 T: 83 QT: 331 QTc: 496 Interpretive Statements SINUS TACHYCARDIA BORDERLINE RIGHT AXIS DEVIATION [QRS AXIS > 90] NONSPECIFIC T-WAVE ABNORMALITY Compared to ECG 01/15/2024 09:27:20 Sinus rhythm no longer present First degree AV block no longer present Prolonged QT interval no longer present T-wave abnormality still present Electronically Signed On 02-14-2025 11:47:20 CDT by Wilberto Breaux M.D. [email or web address] [id number]
--- NOTE | 2025-02-10 06:46 | XRR_ITS ---
PROCEDURE INFORMATION: Exam: XR Chest Exam date and time: 02/10/2025 7:15 AM Age: 69 years old Clinical indication: Cough and dyspnea; Additional info: Dyspnea/cough TECHNIQUE: Imaging protocol: Radiologic exam of the chest. Views: 1 view. COMPARISON: CR XR chest 1V portable [id number] 01/15/2024 9:50 AM FINDINGS: Lungs: Patchy airspace disease left lung base concerning for infiltrate. Pleural spaces: Unremarkable. No pleural effusion. No pneumothorax. Heart/Mediastinum: Unremarkable. No cardiomegaly. Bones/joints: Unremarkable. XR/XR chest 1V portable [id number] IMPRESSION: Patchy airspace disease left lung base concerning for infiltrate.
--- NOTE | 2025-02-10 06:50 | ED_ITS ---
HPI - SOB/Dyspnea 2 General: Chief Complaint: Shortness of Breath/Dyspnea Stated Complaint: SOB Time Seen by Provider: 02/10/25 06:45 History of Present Illness: HPI Narrative: 69-year-old female presents to the emerg ency room with complaint of respiratory distress for the last 3 days. She has had a productive cough of green sputum along with a low-grade fever at home. She has been prescribed oxygen but does not use it regularly she is supposed to be on 2 L/min by nasal cannula. She states she will use it when she feels like she needs it. She has a history of coronary artery disease she has had congestive heart failure episodes in the past. She denies any chest pain at this time she has a history of COPD addition to this. Associated symptoms: Reports chest congestion and fever(s); Deny abdominal pain or chest pain Related Data Home Medications ?Medication ?Instructions ?Recorded ?Confirmed aspirin 81 mg tablet,delayed 81 mg PO QAM 10/26/19 release meloxicam 15 mg tablet 15 mg PO DAILY 02/10/2501/14 Previous Rx's ?Medication ?Instructions ?Recorded Oxygen #1 ea 01/22/22 albuterol sulfate 90 mcg/actuation 2 puff inhalation Q 6H PRN 07/04/24 aerosol inhaler shortness of breath or wheez ing 30 days #18 grams atorvastatin 10 mg tablet 10 mg PO QPM #90 tabs [id number] See Rx Instructions .Route 1 09/27/23 24,000-76,000-120,000 unit .COMPLEX #100 caps capsule,delayed rel (Creon) alprazolam 0.5 mg tablet 0.5 mg PO DAILY PRN anxiety 30 08/29/24 days #30 tabs hydroxychloroquine 200 mg tablet 200 mg PO BID #180 ta bs 09/01/24 leflunomide 20 mg tablet (Arava) 20 mg PO DAILY #90 ta bs 09/01/24 quetiapine 50 mg tablet 50 mg PO BID 30 days #60 tab s 10/04/24 benzonatate 100 mg capsule 100 mg PO TID PRN cough #30 caps 10/11/24 fluticasone propionate 50 1 spray intranasal Q12H PRN Nasal 11/29/24 mcg/actuation nasal Congestion #16 grams spray,suspension loratadine 10 mg tablet (Allergy 10 mg PO DAILY #90 ta bs 11/29/24 Relief (loratadine)) promethazine 25 mg tablet 25 mg PO Q6H PRN nausea and 12/20/24 vomiting #20 tabs celecoxib 100 mg capsule (Celebrex) 100 mg PO BID PRN pain 30 days #60 01/04/25 caps ipratropium 20 mcg-albuterol 100 1 puff inhalation QID PRN 01/04/25 mcg/actuation mist for inhalation shortness of breath or wheezing 30 (Combivent Respimat) days #4 grams metoprolol tartrate 25 mg tablet 12.5 mg (1/2 x 25 mg) PO BID 90 01/04/25 days #90 tabs pantoprazole 40 mg tablet,delayed 40 mg PO BID 90 days #180 tabs 01/04/25 release (Protonix) pregabalin 100 mg capsule 100 mg PO TID 30 days #90 ca ps 01/04/25 tizanidine 4 mg tablet 4 mg PO Q4H PRN Muscle Spasm 30 01/04/25 days #120 tabs tramadol 50 mg tablet 50 mg PO BID PRN pain #60 ta bs 01/09/25 sulfasalazine 500 mg tablet 0.5 g PO BID #60 tabs 0504/07 Allergies Allergy/AdvReac Type Severity Reaction Status Date / Time gabapentin Allergy ADR-Shakine Verified 01/04/25 06:50 ss Opioids - Morphine Analogues Allergy sweats all Verified 01/04/25 06:50 over/ feel uncomfortable fluoxetine AdvReac Intermediate tachycardia Verified 01/04/25 06:50 methotrexate AdvReac Intermediate lip Verified 01/04/25 06:50 swelling Review of Systems 2 Const: Reports: fever(s), chills, body aches, fatigue and malaise Card: Denies: chest pain Resp: Reports: dyspnea, productive cough, wheezing and chest congestion GI: Denies: abdominal pain : Denies: dysuria, urinary frequency or urinary urgency Musc: Denies: neck pain or back pain Skin/Breast: Denies: rash PFSH ED 2 PFSH: Medical History CHF (congestive heart failure) Psychiatric care Diarrhea Immunization counseling High risk medication use Inflammatory arthritis Balance disorder Weakness Memory loss Dupuytrens contracture Polyarthralgia Elevated liver enzymes resolved Bradycardia with 51-60 beats per minute Enrolled in chronic care management Chronic pancreatitis ZAYNAB (generalized anxiety disorder) Prozac caused tachycardia. Allergic rhinitis Hx of acute pancreatitis Due to HCTZ CAD (coronary artery disease) Lumbosacral spondylosis Hyperlipidemia GERD (gastroesophageal reflux disease) HTN (hypertension), benign HCTZ DC due to pancreatitis Chronic migraine Insomnia Was previously on Ambien 10 mg. Weaned down to 5 mg. COPD (chronic obstructive pulmonary disease) Surgical History Hx of colonoscopy H/O: hysterectomy H/O tubal ligation H/O section S/P cataract surgery S/P cholecystectomy H/O foot surgery Social History Smoking and tobacco/nicotine status: never used tobacco/nicotine Quit status (tobacco/nicotine): has quit using Year quit tobacco: 2000 Alcohol intake: current Alcohol intake frequency: holidays/special occasions only Alcohol type: wine Substance/Drug Use: never Current gender identity: Female Female Reproductive History: Spontaneous abortions: No Physical Exam 2 Const: GENERAL APPEARANCE: cooperative ORIENTATION/CONSCIOUSNESS: Yes awake, Yes oriented to person, Yes oriented to place and Yes oriented to time HENMT: COMMON NORMALS: normocephalic, atraumatic and hearing grossly normal bilaterally HEAD & SCALP: normocephalic and atraumatic Resp: COMMON NORMALS: normal respiratory effort, No retractions and No use of accessory muscles AUSCULTATION: rhonchi, wheezes and diminished lung sounds Cardio: COMMON NORMALS: regular rhythm and No murmurs present (Cardio) R ATE: tachycardic RHYTHM: regular rhythm GI: COMMON NORMALS: Soft to palpation and No hepatosplenomegaly present A USCULTATION: Yes normoactive bowel sounds PALPATION: Yes Soft to palpation, No Tenderness to palpation present (GI), No Guarding due to palpation present (GI) and Yes No hepatosplenomegaly present Extremity: COMMON NORMALS: normal to inspection, capillary refill normal, no clubbing, cyanosis or edema, no calf tenderness and no pedal edema Neuro: SENSORIUM/ORIENTATION: Yes oriented to person, Yes oriented to place and Yes oriented to time Skin: COMMON NORMALS: no rashes or lesions noted GENERAL SKIN EXAM: no rashes or lesions noted Course 2 Vital Signs: Vital signs: Vital Signs Temperature 98.0 F 02/10/25 06:37 Pulse Rate 126 H 02/10/25 08:30 Respiratory Rate 19 H 02/10/25 08:00 Blood Pressure 125/74 02/10/25 08:30 Pulse Oximetry 95 02/10/25 08:30 Oxygen Delivery Me thod Nasal Cannula 02/10/25 08:30 Oxygen Flow Rate 4 02/10/25 08:30 MDM - SOB/Dyspnea Medical Decision Making Patient has metabolic acidosis. COPD exacerbation with a left lower lobe pneumonia. Additionally she has a mild acute kidney injury with a slightly widened anion gap. Believe this is the source of her acidosis. She is chronically anemic with an MCV that is elevated at 106. Cultures been done including blood and sputum she has been started on ceftriaxone and Zithromax she is correcting with supplemental oxygen and PCU 2 is not significantly elevated and her PO2 on her blood gas is hyperoxygenated. She complained of leg pain venous duplex was negative for DVT she has no history of DVT or PE. Discussed with hospitalist hospitalist is concerned about PE asked that we start a heparin weight-based protocol since at this point with her acute kidney injury she will not tolerate a CTA. Lactic acid is elevated at 2.7 she has received a sepsis fluid bolus as well. Will admit to ICU due to her tachycardia. Orders written. Medical Records I reviewed the patient's medical records. Lab Data I reviewed the patient's lab results. 02/10/25 07:31 02/10/25 07:31 Labs/Radiology: Radiology Impressions Chest X-Ray 02/10/25 06:46 IMPRESSION: Patchy airspace disease left lung base concerning for infiltrate. Laboratory Results WBC 10.84 10^3/uL (3.29-11.43) 02/10/25 07:31 RBC 3.11 10^6/uL (3.85-5.65) L 02/10/25 07:31 Hgb 10.30 g/dL (11.27-16.99) L 02/10/25 07:31 Hct 33.2 % (36-47) L 02/10/25 07:31 MCV 106.8 fl (85-98) H 02/10/25 07:31 MCH 33.1 pg (27-33) H 02/10/25 07:31 MCHC 31.0 g/dL (30-55) 02/10/25 07: RDW 13.2 % (12.1-15.1) 02/10/25 07: Plt Count 122 10^3/cmm (157-399) L 02/10/25 07:31 MPV 11.8 fL (7.4-10.4) H 02/10/25 07:31 Neut % (Auto) 82.7 % 02/10/25 07:31 Lymph % (Auto) 6.9 % 02/10/25 07:31 [place] % (Auto) 8.9 % 02/10/25 07: Eos % (Auto) 0.3 % 02/10/25 07: Baso % (Auto) 0.6 % 02/10/25 07: Neut # (Auto) 8.97 10^3/uL (1.8-7.7) H 02/10/25 07:31 Lymph # (Auto) 0.8 10^3/uL (0.8-4.8) 02/10/25 07:31 [place] # (Auto) 1.0 10^3/uL (0.2-0.9) H 02/10/25 07:31 Eos # (Auto) 0.0 10^3/uL (0.0-0.8) 02/10/25 07: Baso # (Auto) 0.1 10^3/uL (0.0-0.1) 02/10/25 07: Nucleated RBC % (auto) 0 % 02/10/25 07: Nucleated RBCs # 0.0 /100WBC 02/10/25 07:31 Specimen Type Arterial 02/10/25 06:56 Sample Site Radial, right 02/10/25 06:56 ABG pH 7.28 (7.35-7.45) L 02/10/25 06:56 ABG pCO2 38.7 mmHg (35-45) 02/10/25 06:56 ABG pO2 131.0 mmHg (80.0-100.0) H 02/10/25 06:56 ABG HCO3 18.1 mmol/L (22-26) L 02/10/25 06:56 ABG O2 Saturation 97.8 02/10/25 06:56 ABG Base Excess -8.0 mmol/L (-2.0-2.0) L 02/10/25 06:56 Vasyl Test Pos 02/10/25 06:56 A-a O2 Gradient 4.1 mmHg (5-10) L 02/10/25 06:56 Hematocrit 30.9 % (37-47) L 02/10/25 06:56 Hgb O2 Saturation 94.5 % (95-100) L 02/10/25 06:56 Carboxyhemoglobin 1.4 %THgb (0.4-20.1) 02/10/25 06:56 Methemoglobin 1.9 % (0.4-1.5) H 02/10/25 06:56 Total Hemoglobin 10.1 g/dL (12-16) L 02/10/25 06:56 Sodium 140.0 mmol/L (131-143) 02/10/25 06:56 Potassium 3.8 mmol/L (3.5-5.0) 02/10/25 06:56 Glucose 115.0 mg/dL (70-115) 02/10/25 06:56 Ionized Calcium 1.1 mmol/L (1.1-1.4) 02/10/25 06:56 O2 Delivery Device Nc 02/10/25 06:56 O2 Liters/Min 4.5 % 02/10/25 06:56 Ore Grader ID [place] 02/10/25 06:56 Sodium 141 mmol/L (136-145) 02/10/25 07:31 Potassium 3.6 mmol/L (3.5-5.1) 02/10/25 07:31 Chloride 104 mmol/L (98-107) 02/10/25 07:31 Carbon Dioxide 18 mmol/L (22-29) L 02/10/25 07:31 Anion Gap 22.6 (5-19) H 02/10/25 07:31 BUN 37 mg/dL (8-23) H 02/10/25 07:31 Creatinine 2.1 mg/dL (0.5-0.9) H 02/10/25 07:31 GFR Calculation 23.3 mL/min (90-130) L 02/10/25 07:31 Glucose 111 mg/dL (65-115) 02/10/25 07:31 Calculated Osmolality 301 mOsm/kg (285-295) H 02/10/25 07:31 Lactic Acid 2.7 mmol/L (0.5-2.2) H 02/10/25 07:31 Calcium 8.3 mg/dL (8.5-10.5) L 02/10/25 07:31 Total Bilirubin 0.7 mg/dL (0.15-1.2) 02/10/25 07:31 AST 10 U/L (0-32) 02/10/25 07:31 ALT < 5 U/L (0-33) 02/10/25 07:31 Alkaline Phosphatase 142 U/L (35-105) H 02/10/25 07:31 Creatine Kinase 57 U/L (26-192) 02/10/25 07:31 Troponin T Baseline 17 ng/L (0-10) H 02/10/25 07:31 Total Protein 6.5 g/dL (6.6-8.7) L 02/10/25 07:31 Albumin 3.4 g/dL (3.5-5.2) L 02/10/25 07:31 Globulin 3.1 g/dL (1.3-4.6) 02/10/25 07:31 Influenza A (PCR) Negative (Negative) 02/10/25 07:23 Influenza Type B (PCR) Negative (Negative) 02/10/25 07:23 RSV (PCR) Negative (Negative) 02/10/25 07:23 SARS-CoV-2 (PCR) Negative (Negative) 02/10/25 07:23 All radiology interpretation(s) finalized by discharge EKG Data EKG 1: Interpretation: EKG February 10, 2025 6:43 AM sinus tachycardia no acute ST wave changes noted rate of 134 NV interval 161Compared to EKG January 15, 2024 that have patient has sinus rhythm with first-degree AV block QT interval normal at this time was slightly prolonged previously. No acute ischemic changes Discharge Plan Discharge Patient Disposition: Admitted As Inpatient Clinical Impression: Acute and chronic respiratory failure with hypoxia, Sepsis, Left lower lobe pneumonia, Metabolic acidosis, Acute kidney injury, Acute exacerbation of chronic obstructive pulmonary disease, Macrocytic anemia Condition: Stable Coding Level of Care Code ED Ramp Supervisor for Mirna Turpin
[2025-02-10] MEDS: ipratropium-albuterol 3 mL Neb INHALATION ×3 (06:57→20:26)
[2025-02-10 07:07] LABS: ABG PH Result 7.28 (7.35-7.45); Alveolar-Arterial Oxygen Gradi 4.1 mmHg (5-10); Blood Gas Allen Test Pos; Blood Gas LPM 4.5 %; Blood Gas Operator Identificat WALCI; Blood Gas Sample Site Radial, right; Blood Gas Sample Type Arterial; Oxygen Device NC
[2025-02-10 07:18] LABS: ABG PCO2 38.7 mmHg (35-45); Arterial Blood Gas Hematocrit 30.9 % (37-47); Carboxyhemoglobin 1.4 %THgb (0.4-20.1); HCO3 ABG 18.1 mmol/L (22-26); HGB O2 Sat 94.5 % (95-100); Ionized Calcium Level - ABG 1.1 mmol/L (1.1-1.4); Methemoglobin 1.9 % (0.4-1.5); Oxygen Saturation ABG 97.8; Potassium Level - ABG 3.8 mmol/L (3.5-5.0); Total Hemoglobin 10.1 g/dL (12-16)
[2025-02-10 07:46] LABS: Basophils # 0.1 10^3/uL (0.0-0.1); Basophils % 0.6 %; Eosinophils % 0.3 %; Hematocrit 33.2 % (36-47); Lymphocytes # 0.8 10^3/uL (0.8-4.8); Lymphocytes % 6.9 %; Mean Corpuscular Hemoglobin 33.1 pg (27-33); Mean Corpuscular Volume 106.8 fl (85-98); Mean Platelet Volume 11.8 fL (7.4-10.4); Monocytes % 8.9 %; Neutrophils # 8.97 10^3/uL (1.8-7.7); Neutrophils % 82.7 %; Nucleated Red Blood Cells % 0 %; Platelet Count 122 10^3/cmm (157-399); Red Blood Count 3.11 10^6/uL (3.85-5.65); Red Cell Distribution Width 13.2 % (12.1-15.1); White Blood Count 10.84 10^3/uL (3.29-11.43)
--- NOTE | 2025-02-10 07:47 | USCV_ITS ---
Chery Tsang Age: 69 Gender: F : 1955 Exam Date: 02/10/2025 08:35 Ordering Phys: Oleksandr Castro DO Technologist: [employer] [place] [facility] [place]: pain HISTORY: Lower extremity pain. PROCEDURES: Venous duplex imaging was performed in only the left lower extremity. Serial compression, augmentation maneuvers, and spectral Doppler flow evaluation were performed. FINDINGS: No evidence of DVT seen in any vessel visualized at this time. CONCLUSIONS No evidence of left lower extremity DVT. Pancho Fitzgerald MD (Electronically Signed) Final Date: 10 Feb 2025 10:10 S
[2025-02-10] MEDS: cefTRIAXone 1,000 mg SDV 1000 MG IVP (07:50)
[2025-02-10] MEDS: AZITHROMYCIN ADD-Vantage 500 MG in 0.9% NaCl ADD-Vantage 250 ML 250 MG IV (07:51)
[2025-02-10 08:05] LABS: Lactic Sepsis W/Reflex 2.7 mmol/L (0.5-2.2)
[2025-02-10 08:06] LABS: Alanine Aminotransferase < 5 U/L (0-33); Albumin Level 3.4 g/dL (3.5-5.2); Alkaline Phosphatase 142 U/L (35-105); Anion Gap 22.6 (5-19); Aspartate Amino Transferase 10 U/L (0-32); Blood Urea Nitrogen 37 mg/dL (8-23); Calcium 8.3 mg/dL (8.5-10.5); Carbon Dioxide 18 mmol/L (22-29); Chloride 104 mmol/L (98-107); Creatine Phosphokinase 57 U/L (26-192); Creatinine Clr Calc Pharmacy 20.7258; Globulin 3.1 g/dL (1.3-4.6); Glomerular Filtration Rate 23.3 mL/min (90-130); Glucose 111 mg/dL (65-115); Osmolality Calculated 301 mOsm/kg (285-295); Potassium 3.6 mmol/L (3.5-5.1); Sodium 141 mmol/L (136-145); Total Bilirubin 0.7 mg/dL (0.15-1.2); Total Protein 6.5 g/dL (6.6-8.7); Troponin(5th) Baseline 17 ng/L (0-10)
[2025-02-10 08:12] LABS: Reflex Lactate Order REFLEX LACTIC ORDERD
[2025-02-10 08:30] LABS: Influenza A NEGATIVE (Negative); Influenza B NEGATIVE (Negative); Respiratory Syncytial Virus Ce NEGATIVE (Negative); SARS-CoV-2 PCR NEGATIVE (Negative)
[2025-02-10] MEDS: acetaminophen 500 mg Tablet 1000 MG PO (08:36)
[2025-02-10] MEDS: heparin 5,000 unit/mL INJ 1 mL IVP ×3 (08:38→20:48)
[2025-02-10] MEDS: heparin drip 25,000 UNIT/500 ML PREMIX 15 UNIT IV (08:39)
--- NOTE | 2025-02-10 09:11 | PM.HP ---
Providers/Chief Complaint Primary Care Provider: Deidra Cid MD Chief Complaint: SOB History of Present Illness Chery Tsang is a 69 year old female with a history of coronary artery disease, congestive heart failure, inflammatory arthritis, hypertension, hyperlipidemia, GERD, generalized anxiety disorder, COPD, and memory loss, presenting with several days of worsening shortness of breath and increased cough productive of green sputum. The patient is not normally on supplemental oxygen but required 4 liters via nasal cannula upon arrival to the emergency department, with oxygen saturations noted in the 80s. The patient reports chest tightness for the past two days, worsened by attempts at deep breathing, and is unable to lie flat in bed due to shortness of breath, preferring to sit up. There is reported no swelling in the ankles or weight gain. The patient also reports difficulty urinating over the past few days, with decreased urine output but no dysuria. The patient denies recent swelling in the ankles, denies burning with urination, and has not noticed water weight gain. The patient reports coughing when drinking water, which has been present for about a week. The patient denies alcohol and illicit drug use, quit smoking 24 years ago, and is currently living by herself. The patient is alert and able to answer questions. There is no mention of fever, chills, or other systemic symptoms. The patient has a son, Guicho Peng, who holds medical power of alarm mechanic. Review of Systems Const: Denies: fever(s), chills, body aches or malaise ENMT: Denies: throat pain Card: Reports: dyspnea on exertion, orthopnea and other (Chest tightness, hard to take a deep breath); Denies: edema, swelling of feet/ankles or pre-syncope Resp: Reports: dyspnea, productive cough and change in phlegm color; Denies: hemoptysis GI: Denies: abdominal pain, nausea, vomiting, diarrhea, constipation, hematochezia or melena : Reports: difficulty voiding; Denies: flank pain, urinary frequency or hematuria Musc: Denies: back pain, joint swelling or joint redness Skin/Breast: Denies: rash or new lesions Neuro: Denies: headache(s) or confusion Medications/Allergies Home Medications ?Medication ?Instructions ?Recorded ?Confirmed ?Last Taken ?Type aspirin 81 mg tablet,delayed 81 mg PO QAM 10/26/19 02/10/25 02/09/25 History release Oxygen #1 ea 01/22/22 02/10/25 Unknown Rx albuterol sulfate 90 mcg/actuation 2 puff inhalation Q6H PRN 07/04/24 02/10/25 Unknown Rx aerosol inhaler shortness of breath or wheezing 30 days #18 grams atorvastatin 10 mg tablet 10 mg PO QPM #90 tabs 07/04/24 02/10/25 02/09/25 Rx [id number] See Rx Instructions .Route 07/28/24 02/10/25 02/09/25 Rx 24,000-76,000-120,000 unit .COMPLEX #100 caps capsule,delayed rel (Creon) alprazolam 0.5 mg tablet 0.5 mg PO DAILY PRN anxiety 30 08/29/24 02/10/25 Unknown Rx days #30 tabs hydroxychloroquine 200 mg tablet 200 mg PO BID #180 tabs 09/01/24 02/10/25 02/09/25 Rx leflunomide 20 mg tablet (Arava) 20 mg PO DAILY #90 tabs 09/01/24 02/10/25 02/09/25 Rx quetiapine 50 mg tablet 50 mg PO BID 30 days #60 tabs 10/04/24 02/10/25 02/09/25 Rx benzonatate 100 mg capsule 100 mg PO TID PRN cough #30 caps 10/11/24 02/10/25 Unknown Rx fluticasone propionate 50 1 spray intranasal Q12H PRN Nasal 11/29/24 02/10/25 Unknown Rx mcg/actuation nasal Congestion #16 grams spray,suspension loratadine 10 mg tablet (Allergy 10 mg PO DAILY #90 tabs 11/29/24 02/10/25 02/09/25 Rx Relief (loratadine)) promethazine 25 mg tablet 25 mg PO Q6H PRN nausea and 12/20/24 02/10/25 Unknown Rx vomiting #20 tabs celecoxib 100 mg capsule (Celebrex) 100 mg PO BID PRN pain 30 days #60 01/04/25 02/10/25 02/09/25 Rx caps ipratropium 20 mcg-albuterol 100 1 puff inhalation QID PRN 01/04/25 02/10/25 Unknown Rx mcg/actuation mist for inhalation shortness of breath or wheezing 30 (Combivent Respimat) days #4 grams metoprolol tartrate 25 mg tablet 12.5 mg (1/2 x 25 mg) PO BID 90 01/04/25 02/10/25 02/09/25 Rx days #90 tabs pantoprazole 40 mg tablet,delayed 40 mg PO BID 90 days #180 tabs 01/04/25 02/10/25 02/09/25 Rx release (Protonix) pregabalin 100 mg capsule 100 mg PO TID 30 days #90 caps 01/04/25 02/10/25 02/09/25 Rx tizanidine 4 mg tablet 4 mg PO Q4H PRN Muscle Spasm 30 01/04/25 02/10/25 Unknown Rx days #120 tabs tramadol 50 mg tablet 50 mg PO BID PRN pain #60 tabs 01/09/25 02/10/25 Unknown Rx sulfasalazine 500 mg tablet 0.5 g PO BID #60 tabs 01/18/25 02/10/25 02/09/25 Rx meloxicam 15 mg tablet 15 mg PO DAILY 02/10/25 02/10/25 02/09/25 History Allergies Allergy/AdvReac Type Severity Reaction Status Date / Time gabapentin Allergy ADR-Shakine Verified 01/04/25 06:50 ss Opioids - Morphine Analogues Allergy sweats all Verified 01/04/25 06:50 over/ feel uncomfortable fluoxetine AdvReac Intermediate tachycardia Verified 01/04/25 06:50 methotrexate AdvReac Intermediate lip Verified 01/04/25 06:50 swelling PFSH Acute PFSH: Medical History CHF (congestive heart failure) Psychiatric care Diarrhea Immunization counseling High risk medication use Inflammatory arthritis Balance disorder Weakness Memory loss Dupuytrens contracture Polyarthralgia Elevated liver enzymes resolved Bradycardia with 51-60 beats per minute Enrolled in chronic care management Chronic pancreatitis ZAYNAB (generalized anxiety disorder) Prozac caused tachycardia. Allergic rhinitis Hx of acute pancreatitis Due to HCTZ CAD (coronary artery disease) Lumbosacral spondylosis Hyperlipidemia GERD (gastroesophageal reflux disease) HTN (hypertension), benign HCTZ DC due to pancreatitis Chronic migraine Insomnia Was previously on Ambien 10 mg. Weaned down to 5 mg. COPD (chronic obstructive pulmonary disease) Surgical History Hx of colonoscopy H/O: hysterectomy H/O tubal ligation H/O section S/P cataract surgery S/P cholecystectomy H/O foot surgery Social History Smoking and tobacco/nicotine status: never used tobacco/nicotine Quit status (tobacco/nicotine): has quit using Year quit tobacco: 2000 Alcohol intake: current Alcohol intake frequency: holidays/special occasions only Alcohol type: wine Substance/Drug Use: never Current gender identity: Female Female Reproductive History: Spontaneous abortions: No Vitals/I&O/Wt Last Vital Signs Temp 98.0 F 02/10/25 06:37 Pulse 130 H 02/10/25 09:00 Resp 19 H 02/10/25 08:00 BP 132/84 02/10/25 09:00 Pulse Ox 95 02/10/25 09:00 O2 Del Method Nasal Cannula 02/10/25 09:00 O2 Flow Rate 4 02/10/25 09:00 02/09/25 02/10/25 02/10/25 22:59 06:59 14:59 Intake Total 1594.1 / 1594.1 Balance 1594.1 / 1594.1 Weight last 48 hrs Weight 53.07 kg Physical Exam Const: COMMON NORMALS: patient oriented x3 and alert GENERAL APPEARANCE: cooperative ORIENTATION/CONSCIOUSNESS: Yes awake HENMT: COMMON NORMALS: oropharynx normal Neck/C-Spine: COMMON NORMALS: no JVD Cardio: COMMON NORMALS: no JVD, regular rhythm, S1 normal heart sound present, S2 normal heart sound present and No murmurs present (Cardio) RHYTHM: regular rhythm HEART SOUNDS: S1 normal heart sound present and S2 normal heart sound present GI: COMMON NORMALS: Normal to inspection, nondistended, normoactive bowel sounds present, Soft to palpation and non-tender PALPATION: Yes Soft to palpation Extremity: COMMON NORMALS: no joint enlargement and no pedal edema Neuro: COMMON NORMALS: patient oriented x3 and moves all extremities SENSORIUM/ORIENTATION: Yes alert Skin: COMMON NORMALS: no rashes or lesions noted GENERAL SKIN EXAM: no rashes or lesions noted Data 02/10/25 07:31 02/10/25 07:31 Micro: Microbiology 02/10/25 07:31 Blood Culture - Preliminary Blood SPECIMEN COLLECTED 02/10/25 07:24 Blood Culture - Preliminary Blood SPECIMEN COLLECTED A&P Assessment and plan (1) Respiratory failure with hypoxia: Presenting with dyspnea, decreased oxygen saturation down to 80s. With tachypnea, increased pedal production, wheezing and diminished air entry on exam. Secondary to pneumonia and COPD exacerbation as below. Possible component of acute diastolic congestive heart failure with orthopnea, JVD. (2) Left lower lobe pneumonia: Patient presents with several days of worsening shortness of breath and productive cough with green sputum. Imaging shows left lower lung infiltrate. Blood cultures collected. Empiric antibiotics (ceftriaxone and azithromycin) started in the ER. Additionally reports dysphagia. Reviewed vitals, CBC, ABG, CMP, troponin, EKG, influenza, COVID, RSV PCR, ER provider note, discussed with ER provider. - Continue empiric antibiotics (ceftriaxone and azithromycin) -Additional assessment of dysphagia possible aspiration pneumonia, evaluate MBS - Monitor blood culture results - Collect sputum for culture if possible - MRSA PCR - Urine bacterial antigens - Hold immunomodulators for now. (3) Acute exacerbation of chronic obstructive pulmonary disease: Severe exacerbation of COPD with productive cough with green sputum, dyspnea, diminished air entry, wheezing, tachypnea and hypoxia. History of COPD with acute worsening of respiratory symptoms, requiring new oxygen support. Plan includes steroids and breathing treatments. - Continue oxygen support as needed - Add IV corticosteroid for COPD exacerbation. Monitor for risk of hypertension, hyperglycemia, gastritis, encephalopathy, C. difficile. - Add breathing treatments (4) CHF (congestive heart failure): Possible acute diastolic congestive heart failure with orthopnea, JVD distention, no peripheral edema. No diuretic use at home. Consideration for diuretic administration. Reviewed prior echocardiogram from 2022. Will repeat study. - Discontinue IV fluid. Will give a dose of Lasix. Reassess volume status. - Monitor for signs of fluid overload - Consider diuretic administration if indicated - Obtain echocardiogram to assess cardiac function (5) Chest tightness: Patient reports chest tightness for two days, worsened by deep breathing. No clear evidence of acute coronary syndrome. Differential includes cardiac, pulmonary, and infectious etiologies. - Monitor for worsening chest pain or new symptoms - Complete troponin EKG series. Obtain TTE as above. - Continue cardiac medications (6) Acute kidney injury: Unclear cause, but does take NSAIDs at home including celecoxib, meloxicam. Hold and consider discontinuation of NSAIDs. Received fluid challenge. However, appears also with acute CHF, giving dose of Lasix. Monitor intake and output. Reassess renal function. Obtain kidney protocol CT. Urine sodium and creatinine. Plan CAD: Continue aspirin, beta-rebeca, statin HTN: Monitor blood pressures PDMP PDMP Reviewed: Not Reviewed Attestations Medical Necessity Statement*: Admission over 2 midnights anticipated. Management of respiratory failure, pneumonia, severe exacerbation of COPD, acute CHF, KAREY in a lady with underlying CAD, inflammatory arthritis on immunomodulators. Diagnoses Respiratory failure with hypoxia J96.91 Left lower lobe pneumonia J18.9 Acute exacerbation of chronic obstructive pulmonary disease J44.1 Chronic diastolic congestive heart failure I50.32 Heart failure type: diastolic Heart failure chronicity: chronic Chest tightness R07.89 Acute kidney injury N17.9
--- NOTE | 2025-02-10 09:12 | ECG_ITS ---
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
--- NOTE | 2025-02-10 09:18 | FL_ITS ---
WS: [id number] Modified barium swallow, 02/10/2025 Clinical Data: Oropharyngeal dysphagia Comparison: None. Fluoroscopy time: 1min [id number] # of spot films: Findings: The patient had a good oral phase. There is no significant residue after swallowing multiple food formulations. There is no aspiration or penetration. The barium tablet stayed in the midesophagus until water was added to propel it into the stomach. FL/FL barium swallow modifd [id number] Impression: 1. Good oral phase with no significant residue after swallowing multiple food f ormulations. 2. No aspiration or penetration. 3. Delay in barium tablet passing through the esophagus.
--- NOTE | 2025-02-10 09:22 | CTR_ITS ---
PROCEDURE INFORMATION: Exam: CT Abdomen And Pelvis Without Contrast Exam date and time: 02/10/2025 11:27 AM Age: 69 years old Clinical indication: Condition or disease; Other: Felix, sepsis; Prior surgery; Surgery date: 6+ months; Surgery type: Gb, hysto; Respiratory distress x3 days. HX copd and chf. Patient has been tachy in the 140s. PT is C/O of green productive cough. ; Additional info: Felix, difficulty urinating, sepsis TECHNIQUE: Imaging protocol: Computed tomography of the abdomen and pelvis without contrast. Radiation optimization: All CT scans at this facility use at least one of these dose optimization techniques: automated exposure control; mA and/or kV adjustment per patient size (includes targeted exams where dose is matched to clinical indication); or iterative reconstruction. COMPARISON: CT abdomen pelvis wo con [id number] 01/15/2024 10:27 AM RADIATION DOSE METRICS: Total DLP (mGy-cm): 319.8 FINDINGS: Lungs: Moderate centrilobular emphysema is visible in the lung bases. There is mild bilateral lower lobe bronchial wall thickening. There is asymmetric subpleural reticular opacity in the left lung base. Lower lung opacities are new since 01/15/2024. Liver: The liver is normal. Gallbladder and biliary ducts: The gallbladder is absent. There is no intrahepatic or extrahepatic bile duct dilation. Pancreas: There is moderate atrophy of the pancreas. Spleen: The spleen is unremarkable. Adrenal glands: There is hypertrophy of the left adrenal gland. Kidneys and ureters: The kidneys are unremarkable. No hydronephrosis or stones. No ureteral dilation. Stomach and bowel: The stomach is nondistended, limiting assessment of wall thickness. A gas-filled duodenal diverticulum is suspected at the duodenal bulb, similar to findings on 01/15/2024 but partially obscured on this exam by beam hardening artifact from intraluminal contrast. The transverse duodenum does not extend across midline and the small bowel is contained in the right abdomen. The small bowel is nondilated. The mobile cecum is positioned near midline in the upper abdomen anterior to the liver. The colon is markedly tortuous and intermittently mildly stool distended. The colon lies entirely in the left abdomen. There is no sign of colonic inflammation or obstruction. Appendix: Not visible. Intraperitoneal space: There is no free air or significant intraperitoneal free fluid. Vasculature: There is moderate aortic atherosclerotic disease. Lymph nodes: There is no lymphadenopathy in the retroperitoneum, mesentery, pelvis or inguinal regions. Urinary bladder: The urinary bladder is unremarkable. Reproductive: The uterus is absent. There is no adnexal mass or large cyst. Bones/joints: There is mild degenerative disease in the lower lumbar spine. There is mild degenerative disease of the right hip. The bony pelvis is intact. Soft tissues: The abdominal wall is intact. CT/CT kidney stone [id number] IMPRESSION: 1. No acute intra-abdominal findings. 2. New mild asymmetric opacity in the left lung base with lower lobe bronchiectasis bilaterally. Findings are suspicious for infection or aspiration. 3. 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 No sign of bowel obstruction. No sign of bowel inflammation.
--- NOTE | 2025-02-10 09:59 | PC.NURSE ---
PT OFF FLOOR TO RADIOLOGY FOR BARIUM SWALLOW STUDY.
[2025-02-10 10:11] LABS: Troponin 5 2HR 16.75 ng/L (0-10); Troponin 5 2HR Delta -0.25 ABS# (0-10)
[2025-02-10 11:30] LABS: Lactic Acid level (Lactate) 1.9 mmol/L (0.5-2.2)
--- NOTE | 2025-02-10 11:41 | PC.NURSE ---
arrived from ED, scooted self to bed, AO
[2025-02-10] MEDS: methylPREDNISolone sod succ 40 mg/mL INJ IVP ×2 (12:23→17:04)
[2025-02-10] MEDS: tizanidine 4 mg Tablet PO ×2 (12:23→20:51)
[2025-02-10] MEDS: acetaminophen 325 mg Tablet 650 MG PO (12:23)
[2025-02-10] MEDS: sodium chloride 0.9% 1,000 ML 100 ML IV (12:23)
[2025-02-10 12:38] LABS: Thyroid Stimulating Hormone 1.27 uIU/mL (0.27-4.20)
[2025-02-10] MEDS: pregabalin 100 mg Capsule PO ×2 (14:25→20:50)
[2025-02-10 14:49] LABS: Partial Thromboplastin Time 36.4 SECONDS (23.9-36.7)
[2025-02-10 14:58] LABS: Troponin 5 6HR 21.92 ng/L (0-10); Troponin 5 6HR Delta 4.92 ng/L (0-12)
[2025-02-10] MEDS: ATORVASTATIN 10 MG TABLET PO (17:02)
[2025-02-10] MEDS: quetiapine 25 mg Tablet 50 MG PO (17:03)
[2025-02-10] MEDS: metoprolol tartrate 25 mg Tablet 12.5 MG PO (17:03)
[2025-02-10] MEDS: pantoprazole DR 40 mg Tablet PO (17:04)
--- NOTE | 2025-02-10 22:42 | PC.NURSE ---
Heparin titration: Upon arrival to shift, heparin was running at 15mL/hr, MAR updated to reflect dose.
[2025-02-11] VITALS (38 sets, daily range): BP systolic 95–150; BP diastolic 50–97; PULSE 68–108; RESP 16–24; TEMP 36.6–37; O2SAT 90–100
[2025-02-11] MEDS: methylPREDNISolone sod succ 40 mg/mL INJ IVP ×5 (00:18→23:17)
[2025-02-11] MEDS: ipratropium-albuterol 3 mL Neb INHALATION ×4 (01:38→20:18)
[2025-02-11 03:01] LABS: Basophils % 0.2 %; Hematocrit 27.2 % (36-47); Lymphocytes # 0.2 10^3/uL (0.8-4.8); Lymphocytes % 3.1 %; Mean Corpuscular HGB Conc 31.6 g/dL (30-55); Mean Corpuscular Hemoglobin 33.3 pg (27-33); Mean Corpuscular Volume 105.4 fl (85-98); Monocytes # 0.3 10^3/uL (0.2-0.9); Monocytes % 4.2 %; Neutrophils # 5.97 10^3/uL (1.8-7.7); Nucleated Red Blood Cells % 0 %; Platelet Count 111 10^3/cmm (157-399); Red Blood Count 2.58 10^6/uL (3.85-5.65); Red Cell Distribution Width 13.1 % (12.1-15.1); White Blood Count 6.48 10^3/uL (3.29-11.43)
[2025-02-11 03:21] LABS: Alanine Aminotransferase 6 U/L (0-33); Alkaline Phosphatase 119 U/L (35-105); Anion Gap 15.6 (5-19); Aspartate Amino Transferase 12 U/L (0-32); Blood Urea Nitrogen 36 mg/dL (8-23); Calcium 8.8 mg/dL (8.5-10.5); Carbon Dioxide 19 mmol/L (22-29); Chloride 104 mmol/L (98-107); Creatinine Clr Calc Pharmacy 31.0888; Globulin 2.9 g/dL (1.3-4.6); Glomerular Filtration Rate 37.2 mL/min (90-130); Glucose 132 mg/dL (65-115); Osmolality Calculated 290 mOsm/kg (285-295); Potassium 3.6 mmol/L (3.5-5.1); Sodium 135 mmol/L (136-145); Total Bilirubin 0.2 mg/dL (0.15-1.2); Total Protein 5.9 g/dL (6.6-8.7)
[2025-02-11] MEDS: acetaminophen 325 mg Tablet 650 MG PO ×3 (03:21→18:17)
[2025-02-11 03:22] LABS: Partial Thromboplastin Time 49.5 SECONDS (23.9-36.7)
[2025-02-11] MEDS: heparin 5,000 unit/mL INJ 1 mL IVP ×3 (04:20→18:18)
[2025-02-11 04:50] LABS: Bilirubin Urine Negative (Negative); Blood Urine Negative (Negative); Glucose Urine UA Negative (Normal); Ketones Urine Trace (Negative); Leukocyte Esterase Urine Negative (Negative); Nitrate Urine Negative (Negative); Protein Urine 2+ (Negative); Specific Gravity, Urine 1.021 (1.005-1.030); Urine Appearance Clear (CLEAR); Urine Color Dark Yellow (Yellow); pH Urine 5.5 (5-7)
[2025-02-11 04:54] LABS: Urine Creatinine 107 mg/dL (28-217); Urine Random Sodium 22 mmol/L
[2025-02-11 04:55] LABS: Add Urine Microscopic? YES; Bacteria Urine None Seen /hpf; Hyaline Casts Urine 8.26 /lpf; RBC Urine 0-2 /hpf (0-2); WBC Urine 0-5 /hpf (0-5)
[2025-02-11] MEDS: aspirin 81 mg EC Tablet PO (05:40)
[2025-02-11] MEDS: cefTRIAXone 1,000 mg SDV 1000 MG IVP (06:13)
[2025-02-11] MEDS: AZITHROMYCIN ADD-Vantage 500 MG in 0.9% NaCl ADD-Vantage 250 ML 250 MG IV (06:13)
[2025-02-11 07:24] LABS: MRSA PCR OZH (swab) NOT DETECTED (Not Detecte)
[2025-02-11] MEDS: quetiapine 25 mg Tablet 50 MG PO ×2 (08:08→18:18)
[2025-02-11] MEDS: loratadine 10 mg Tablet PO (08:08)
[2025-02-11] MEDS: metoprolol tartrate 25 mg Tablet 12.5 MG PO ×2 (08:08→18:18)
[2025-02-11] MEDS: tizanidine 4 mg Tablet PO ×2 (08:08→18:17)
[2025-02-11] MEDS: pantoprazole DR 40 mg Tablet PO (08:08)
[2025-02-11] MEDS: pregabalin 100 mg Capsule PO ×3 (08:08→20:45)
[2025-02-11 11:53] LABS: Partial Thromboplastin Time 31.7 SECONDS (23.9-36.7)
[2025-02-11 11:56] LABS: D Dimer 3.55 ug/mLFEU (0-0.59)
[2025-02-11] MEDS: sucralfate 1 gm/10 mL Oral Liq UDC PO ×2 (13:04→23:17)
[2025-02-11] MEDS: heparin drip 25,000 UNIT/500 ML PREMIX 20 UNIT IV (13:39)
[2025-02-11 14:12] LABS: Basophils % 0.1 %; Hematocrit 28.3 % (36-47); Lymphocytes # 0.2 10^3/uL (0.8-4.8); Lymphocytes % 1.4 %; Mean Corpuscular HGB Conc 31.1 g/dL (30-55); Mean Corpuscular Hemoglobin 32.8 pg (27-33); Mean Corpuscular Volume 105.6 fl (85-98); Mean Platelet Volume 11.1 fL (7.4-10.4); Monocytes # 0.5 10^3/uL (0.2-0.9); Neutrophils # 10.53 10^3/uL (1.8-7.7); Neutrophils % 93.9 %; Nucleated Red Blood Cells % 0 %; Platelet Count 127 10^3/cmm (157-399); Red Blood Count 2.68 10^6/uL (3.85-5.65); Red Cell Distribution Width 13.3 % (12.1-15.1); White Blood Count 11.22 10^3/uL (3.29-11.43)
[2025-02-11 14:30] LABS: Anion Gap 18.7 (5-19); Blood Urea Nitrogen 40 mg/dL (8-23); Calcium 8.8 mg/dL (8.5-10.5); Carbon Dioxide 18 mmol/L (22-29); Chloride 105 mmol/L (98-107); Glomerular Filtration Rate 34.3 mL/min (90-130); Glucose 113 mg/dL (65-115); Osmolality Calculated 297 mOsm/kg (285-295); Potassium 3.7 mmol/L (3.5-5.1); Sodium 138 mmol/L (136-145)
[2025-02-11 14:32] LABS: Creatinine Clr Calc Pharmacy 29.3754
[2025-02-11 16:16] LABS: NT Pro B Type Natriuretic Pept 6393 pg/mL (0-125)
[2025-02-11 17:40] LABS: Partial Thromboplastin Time 53.2 SECONDS (23.9-36.7)
[2025-02-11] MEDS: ATORVASTATIN 10 MG TABLET PO (18:18)
--- NOTE | 2025-02-11 18:29 | USCV_ITS ---
Chery Tsang Age: 69 Gender: F : 1955 Exam Date: 02/11/2025 10:23 Ordering Phys: Ian Doshi MD Technologist: Fermin Stack Exam Location: [facility] [place] [facility] [place] Indication: chf BP: 135 / 97 HR: 92 Rhythm: Sinus Technical Quality: Adequate MEASUREMENTS (Male / Female) Normal Values 2D ECHO LV Diastolic Diameter PLAX 4.0 cm 4.2 - 5.9 / 3.9 - 5.3 cm IVS Diastolic Thickness 0.9 cm 0.6 - 1.0 / 0.6 - 0.9 cm IVS Systolic Thickness 1.2 cm LVPW Diastolic Thickness 1.6 cm 0.6 - 1.0 / 0.6 - 0.9 cm LVPW Systolic Thickness 2.2 cm LVOT Diameter 2.0 cm LV Ejection Fraction 2D Teich 72.4 % LV Ejection Fraction MOD 4C 59.7 % LV Ejection Fraction MOD 2C 63.8 % LV Ejection Fraction 2C AL 63.8 % LA Diameter 3.1 cm RA Systolic Volume 4C AL 32.1 ml RA Systolic Volume 4C MOD 32.2 ml LA Sys Volume AL 33.5 cm cubed LA Sys Volume Index AL 21.5 cm cubed/m squared Aorta at Sinotubular Diameter 1.9 cm IVC Diameter 1.9 cm M-MODE LA Ao Ratio MM 1.4 AV Cusp Separation MM 1.6 cm DOPPLER AV Peak Velocity 360.7 cm/s LVOT Peak Velocity 94.0 cm/s AV Area Cont Eq vti 2.2 cm squared AV Area Cont Eq pk 0.9 cm squared MV Peak Velocity 134.0 cm/s MV Area PHT 8.0 cm squared Mitral E to A Ratio 0.7 TV Peak Velocity 192.0 cm/s TR Peak Velocity 291.0 cm/s TR Peak Gradient 33.9 mmHg TR Mean Velocity 245.0 cm/s TR Mean Gradient 25.3 mmHg TR Velocity Time Integral 80.7 cm PV Peak Velocity 79.0 cm/s RV Ejection Time 0.3 s FINDINGS Left Ventricle Left ventricle is normal in size. LV systolic function is normal with EF of 55-60%. No regional wall motion abnormalities are seen. Grade 1 diastolic dysfunction Right Ventricle Normal in size and function Right Atrium Normal in size Left Atrium Normal in size Mitral Valve Structurally normal mitral valve. Mild mitral regurgitation. Aortic Valve Structurally normal aortic valve. No significant stenosis. Mild aortic regurgitation Tricuspid Valve Insufficient TR jet to calculate RVSP Pulmonic Valve Not well visualized Pericardium Normal Aorta Normal in size IVC Appears to be normal CONCLUSIONS LV systolic function is normal with EF of 55-60% Grade 1 diastolic dysfunction Mild mitral regurgitation Mild aortic regurgitation. Wilberto Breaux MD (Electronically Signed) Final Date: 12 February 2025 10:55 S
[2025-02-11] MEDS: pantoprazole 40 mg SDV IVP (20:45)
[2025-02-12] VITALS (10 sets, daily range): BP systolic 111–149; BP diastolic 68–76; PULSE 83–106; RESP 16–20; TEMP 36.6–36.8; O2SAT 90–94; BMI 23.3
[2025-02-12 00:56] LABS: Partial Thromboplastin Time 90.3 SECONDS (23.9-36.7)
[2025-02-12] MEDS: benzonatate 100 mg Capsule PO ×3 (05:11→20:35)
[2025-02-12] MEDS: methylPREDNISolone sod succ 40 mg/mL INJ IVP ×2 (05:12→12:54)
[2025-02-12] MEDS: aspirin 81 mg EC Tablet PO (05:12)
[2025-02-12 05:39] LABS: Basophils % 0.1 %; Hematocrit 26.4 % (36-47); Lymphocytes # 0.2 10^3/uL (0.8-4.8); Lymphocytes % 1.6 %; Mean Corpuscular HGB Conc 31.1 g/dL (30-55); Mean Corpuscular Hemoglobin 32.9 pg (27-33); Mean Platelet Volume 11.1 fL (7.4-10.4); Monocytes # 0.5 10^3/uL (0.2-0.9); Monocytes % 4.3 %; Neutrophils # 10.83 10^3/uL (1.8-7.7); Neutrophils % 93.3 %; Nucleated Red Blood Cells % 0 %; Platelet Count 128 10^3/cmm (157-399); Red Blood Count 2.49 10^6/uL (3.85-5.65); Red Cell Distribution Width 13.2 % (12.1-15.1); White Blood Count 11.61 10^3/uL (3.29-11.43)
[2025-02-12] MEDS: cefTRIAXone 1,000 mg SDV 1000 MG IVP (05:57)
[2025-02-12] MEDS: AZITHROMYCIN ADD-Vantage 500 MG in 0.9% NaCl ADD-Vantage 250 ML 250 MG IV (05:57)
[2025-02-12 06:14] LABS: Alanine Aminotransferase < 5 U/L (0-33); Albumin Level 2.7 g/dL (3.5-5.2); Alkaline Phosphatase 97 U/L (35-105); Aspartate Amino Transferase 10 U/L (0-32); Blood Urea Nitrogen 37 mg/dL (8-23); Calcium 8.6 mg/dL (8.5-10.5); Carbon Dioxide 20 mmol/L (22-29); Creatinine Clr Calc Pharmacy 40.0573; Globulin 2.7 g/dL (1.3-4.6); Glomerular Filtration Rate 49.1 mL/min (90-130); Glucose 116 mg/dL (65-115); Total Bilirubin 0.2 mg/dL (0.15-1.2); Total Protein 5.4 g/dL (6.6-8.7)
[2025-02-12 06:30] LABS: Anion Gap 14.9 (5-19); Chloride 108 mmol/L (98-107); Osmolality Calculated 298 mOsm/kg (285-295); Potassium 3.9 mmol/L (3.5-5.1); Sodium 139 mmol/L (136-145)
[2025-02-12] MEDS: ipratropium-albuterol 3 mL Neb INHALATION ×3 (07:48→20:35)
[2025-02-12 07:51] LABS: Partial Thromboplastin Time 85.2 SECONDS (23.9-36.7)
--- NOTE | 2025-02-12 08:18 | CTR_ITS ---
PROCEDURE INFORMATION: Exam: CTA Chest With Contrast Exam date and time: 02/12/2025 8:53 AM Age: 69 years old Clinical indication: Abnormal findings; Abnormal diagnostic tests; Elevated d-dimer; Shortness of breath; Additional info: SOB, elevated d dimer TECHNIQUE: Imaging protocol: Computed tomographic angiography of the chest with contrast. Exam focused on the arteries. 3D rendering (Not supervised by radiologist): MIP and/or 3D reconstructed images were created by the technologist. Radiation optimization: All CT scans at this facility use at least one of these dose optimization techniques: automated exposure control; mA and/or kV adjustment per patient size (includes targeted exams where dose is matched to clinical indication); or iterative reconstruction. Contrast material: OMNI 350; Contrast volume: 100 ml; Contrast route: INTRAVENOUS (IV); COMPARISON: 1. CT angio chest PE protcl [id number] 12/16/2022 1:[address] kidney stone [id number] 02/10/2025 11:[address] abdomen pelvis wo con [id number] 01/15/2024 10:27 AM RADIATION DOSE METRICS: Total DLP (mGy-cm): 205.3 FINDINGS: Pulmonary arteries: Normal. No pulmonary emboli. Aorta: The thoracic aorta is nonaneurysmal with mild atherosclerotic calcifications. Lungs: Moderate to severe centrilobular emphysematous changes, similar to prior. Asymmetric reticular opacities in the lingula and left lower lobe, similar to the most recent prior CT. A few small nodular opacities in the left lower lobe appear less conspicuous than 12/16/2022. No new or enlarging pulmonary nodules. No focal consolidation. Pleural spaces: Small left pleural effusion, some of which appears mildly loculated and measures slightly above simple fluid in attenuation. Heart: Unremarkable. No cardiomegaly. No pericardial effusion. Coronary arteries: Multivessel coronary artery calcifications. Lymph nodes: Unremarkable. No enlarged lymph nodes. Gallbladder and biliary ducts: Status post cholecystectomy. Bones/joints: Unremarkable. No acute fracture. Soft tissues: Unremarkable. CT/CT angio chest PE protcl [id number] IMPRESSION: 1. No evidence of pulmonary embolism. 2. Mild left basilar reticular opacities could represent developing atypical infection. Small left pleural effusion with areas which appear mildly loculated and complex. Developing small empyema not entirely excluded. Correlate with clinical findings and consider short interval imaging follow-up to document stability. 3. Small nodular opacities in the left lower lobe appears slightly less conspicuous than 12/16/2022 and could represent sequela of infection/inflammation. 4. Similar emphysema. COMMENTS: The presence of pulmonary emphysema on CT is an independent risk factor for lung cancer. In the absence of a history or active diagnosis of lung cancer, it is recommended that this patient with emphysema be evaluated for enrollment in a low dose CT lung cancer screening program.
[2025-02-12] MEDS: iohexol 350 mg/mL 500 mL Btl (per mL) IV (08:54)
[2025-02-12] MEDS: tizanidine 4 mg Tablet PO (10:11)
[2025-02-12] MEDS: acetaminophen 325 mg Tablet 650 MG PO (10:11)
[2025-02-12] MEDS: quetiapine 25 mg Tablet 50 MG PO ×2 (10:11→17:14)
[2025-02-12] MEDS: pregabalin 100 mg Capsule PO ×3 (10:12→20:35)
[2025-02-12] MEDS: metoprolol tartrate 25 mg Tablet 12.5 MG PO ×2 (10:12→17:14)
[2025-02-12] MEDS: loratadine 10 mg Tablet PO (10:12)
[2025-02-12] MEDS: pantoprazole 40 mg SDV IVP ×2 (10:14→20:35)
[2025-02-12] MEDS: sodium chloride 0.9% 1,000 ML 50 ML IV (10:15)
[2025-02-12] MEDS: sucralfate 1 gm/10 mL Oral Liq UDC PO ×2 (12:54→23:26)
--- NOTE | 2025-02-12 14:04 | P.PN_ITS ---
Subjective 2 Subjective: Patient was seen this morning, currently alert oriented x 3, following all commands does have a cough does report fatigue, malaise, no fevers, chills, discussed her CT angiogram the chest was negative for PE, will discontinue heparin drip, but I did show mild basilar left reticular opacities, with a small left complex pleural effusion, plans on doing a thoracentesis tomorrow, based on risk benefits, she voiced understanding, all questions answered, agreed to proceed Vitals/I&O/Wt Last Vital Signs Temp 97.9 F 02/12/25 11:23 Pulse 91 02/12/25 14:00 Resp 18 02/12/25 14:00 BP 111/68 02/12/25 11:23 Pulse Ox 94 02/12/25 14:00 O2 Del Method Room Air 02/12/25 14:00 O2 Flow Rate 2 02/11/25 13:59 02/11/25 02/12/25 02/12/25 22:59 06:59 14:59 Intake Total 583.333 / 1163.333 145.95 / 0759.963 5905.316 / 1124.316 Balance 583.333 / 1163.333 145.95 / 4177.580 2367.316 / 1124.316 Weight last 48 hrs Weight 59.874 kg Weight 54.7 kg Weight 54.7 kg Physical Exam 2 Const: COMMON NORMALS: no acute distress and patient oriented x3 Resp: COMMON NORMALS: normal respiratory effort, No retractions and No use of accessory muscles AUSCULTATION: crackles and wheezes Cardio: COMMON NORMALS: regular rate, regular rhythm, S1 normal heart sound present and S2 normal heart sound present RATE: regular rate RHYTHM: r egular rhythm HEART SOUNDS: S1 normal heart sound present and S2 normal heart sound present GI: COMMON NORMALS: Normal to inspection, nondistended, normoactive bowel sounds present and non-tender Extremity: COMMON NORMALS: no pedal edema Neuro: COMMON NORMALS: patient oriented x3 Psych: COMMON NORMALS: mental status grossly normal Data 02/12/25 12:12 02/12/25 05:01 Micro: Microbiology 02/11/25 02:52 Legionella Urinary Antigen - Final Urine,Clean Catch Bacterial Antigens - Final A&P Assessment and plan (1) Respiratory failure with hypoxia: CT/CT angio chest PE protcl [id number] IMPRESSION: 1. No evidence of pulmonary embolism. 2. Mild left basilar reticular opacities could represent developing atypical infection. Small left pleural effusion with areas which appear mildly loculated and complex. Developing small empyema not entirely excluded. Correlate with clinical findings and consider short interval imaging follow-up to document stability. 3. Small nodular opacities in the left lower lobe appears slightly less conspicuous than 12/16/2022 and could represent sequela of infection/inflammation. 4. Similar emphysema. -Secondary to left lower lobe pneumonia, -Secondary to COPD -With left complex pleural effusion -History of immunocompromise state on Plaquenil, leflunomide Plan -Continue Rocephin -Continue azithromycin -Continue IV steroids spaced out Solu-Medrol to IV every 8 hours -Follow-up blood cultures -Follow sputum cultures -Ultrasound thoracentesis tomorrow -Lovenox for DVT prophylaxis (2) Left lower lobe pneumonia: - Hold immunomodulators for now. (3) Acute exacerbation of chronic obstructive pulmonary disease: - (4) CHF (congestive heart failure): CONCLUSIONS LV systolic function is normal with EF of 55-60% Grade 1 diastolic dysfunction Mild mitral regurgitation Mild aortic regurgitation. - Appears euvolemic (5) Chest tightness: - No current chest pain (6) Acute kidney injury: - Monitor Plan CAD: Continue aspirin, beta-rebeca, statin HTN: Monitor blood pressures PDMP PDMP Reviewed: Not Reviewed Attestations 2 Medical Necessity Statement*: Patient requires hospitalization for left lower lobe pneumonia, with complex pleural effusion requiring thoracentesis tomorrow, currently working IV antibiotics, IV steroids Diagnoses Respiratory failure with hypoxia J96.91 Left lower lobe pneumonia J18.9 Acute exacerbation of chronic obstructive pulmonary disease J44.1 Chronic diastolic congestive heart failure I50.32 Heart failure type: diastolic Heart failure chronicity: chronic Chest tightness R07.89 Acute kidney injury N17.9
--- NOTE | 2025-02-12 14:09 | P.PN_ITS ---
Subjective 2 Subjective: This is progress note from February 11, 2025, - Patient is alert oriented x 3, followi ng all commands, sitting up in a chair in the ICU - She reports feeling weak and fatigued and tired, does report feeling short of breath Vitals/I&O/Wt Last Vital Signs Temp 97.9 F 02/12/25 11:23 Pulse 91 02/12/25 14:00 Resp 18 02/12/25 14:00 BP 111/68 02/12/25 11:23 Pulse Ox 94 02/12/25 14:00 O2 Del Method Room Air 02/12/25 14:00 O2 Flow Rate 2 02/11/25 13:59 02/11/25 02/12/25 02/12/25 22:59 06:59 14:59 Intake Total 583.333 / 1163.333 145.95 / 2607.250 2876.316 / 1124.316 Balance 583.333 / 1163.333 145.95 / 7683.124 4456.316 / 1124.316 Weight last 48 hrs Weight 59.874 kg Weight 54.7 kg Weight 54.7 kg Physical Exam 2 Const: COMMON NORMALS: no acute distress and patient oriented x3 Resp: COMMON NORMALS: normal respiratory effort, No retractions and No use of accessory muscles AUSCULTATION: crackles and wheezes Cardio: COMMON NORMALS: regular rate, regular rhythm, S1 normal heart sound present and S2 normal heart sound present RATE: regular rate RHYTHM: r egular rhythm HEART SOUNDS: S1 normal heart sound present and S2 normal heart sound present GI: COMMON NORMALS: Normal to inspection, nondistended, normoactive bowel sounds present and non-tender Extremity: COMMON NORMALS: no pedal edema Neuro: COMMON NORMALS: patient oriented x3 Psych: COMMON NORMALS: mental status grossly normal Data 02/12/25 12:12 02/12/25 05:01 Micro: Microbiology 02/11/25 02:52 Legionella Urinary Antigen - Final Urine,Clean Catch Bacterial Antigens - Final A&P Assessment and plan (1) Respiratory failure with hypoxia: -Secondary to left lower lobe pneumonia, -Secondary to COPD -History of immunocompromise state on Plaquenil, leflunomide Plan -Continue Rocephin -Continue azithromycin -Continue IV steroids -Follow-up blood cultures -Follow sputum cultures -Heparin drip, once creatinine reasonable, will do CT angiogram the chest possibly tomorrow - Heparin drip for DVT prophylaxis (2) Left lower lobe pneumonia: - Hold immunomodulators for now. (3) Acute exacerbation of chronic obstructive pulmonary disease: - (4) CHF (congestive heart failure): CONCLUSIONS LV systolic function is normal with EF of 55-60% Grade 1 diastolic dysfunction Mild mitral regurgitation Mild aortic regurgitation. - Appears euvolemic (5) Chest tightness: - No current chest pain (6) Acute kidney injury: - Monitor Plan CAD: Continue aspirin, beta-rebeca, statin HTN: Monitor blood pressures PDMP PDMP Reviewed: Not Reviewed Attestations 2 Medical Necessity Statement*: Patient requires hospitalization for COPD exacerbation, pneumonia, this is progress note from 02/11/2025 Diagnoses Respiratory failure with hypoxia J96.91 Left lower lobe pneumonia J18.9 Acute exacerbation of chronic obstructive pulmonary disease J44.1 Chronic diastolic congestive heart failure I50.32 Heart failure type: diastolic Heart failure chronicity: chronic Chest tightness R07.89 Acute kidney injury N17.9
[2025-02-12] MEDS: ATORVASTATIN 10 MG TABLET PO (17:14)
[2025-02-12] MEDS: enoxaparin 40 mg/0.4 mL Syringe SUBCUT (20:35)
[2025-02-13 00:45] VITALS: BP 127/65; PULSE 60; RESP 18; TEMP 37; O2SAT 96
[2025-02-13 03:49] VITALS: BP 137/71; PULSE 97; RESP 16; TEMP 37.1; O2SAT 92
[2025-02-13 04:00] LABS: Basophils % 0.1 %; Hematocrit 25.7 % (36-47); Lymphocytes # 0.5 10^3/uL (0.8-4.8); Lymphocytes % 6.1 %; Mean Corpuscular HGB Conc 31.1 g/dL (30-55); Mean Corpuscular Hemoglobin 32.8 pg (27-33); Mean Corpuscular Volume 105.3 fl (85-98); Mean Platelet Volume 10.7 fL (7.4-10.4); Monocytes # 0.7 10^3/uL (0.2-0.9); Monocytes % 9.1 %; Neutrophils # 6.48 10^3/uL (1.8-7.7); Nucleated Red Blood Cells % 0 %; Platelet Count 122 10^3/cmm (157-399); Red Blood Count 2.44 10^6/uL (3.85-5.65); Red Cell Distribution Width 13.3 % (12.1-15.1)
[2025-02-13 04:23] LABS: Alanine Aminotransferase 7 U/L (0-33); Albumin Level 2.9 g/dL (3.5-5.2); Alkaline Phosphatase 90 U/L (35-105); Anion Gap 12.7 (5-19); Aspartate Amino Transferase 11 U/L (0-32); Blood Urea Nitrogen 27 mg/dL (8-23); Calcium 8.3 mg/dL (8.5-10.5); Carbon Dioxide 22 mmol/L (22-29); Chloride 110 mmol/L (98-107); Creatinine Clr Calc Pharmacy 45.7734; Globulin 2.1 g/dL (1.3-4.6); Glomerular Filtration Rate 54.8 mL/min (90-130); Glucose 95 mg/dL (65-115); Osmolality Calculated 297 mOsm/kg (285-295); Potassium 3.7 mmol/L (3.5-5.1); Sodium 141 mmol/L (136-145); Total Bilirubin 0.2 mg/dL (0.15-1.2)
[2025-02-13] MEDS: sodium chloride 0.9% 1,000 ML 50 ML IV (04:50)
[2025-02-13] MEDS: aspirin 81 mg EC Tablet PO (06:07)
[2025-02-13] MEDS: cefTRIAXone 1,000 mg SDV 1000 MG IVP (06:07)
[2025-02-13] MEDS: AZITHROMYCIN ADD-Vantage 500 MG in 0.9% NaCl ADD-Vantage 250 ML 250 MG IV (06:07)
[2025-02-13] MEDS: methylPREDNISolone sod succ 40 mg/mL INJ IVP (06:08)
[2025-02-13] MEDS: benzonatate 100 mg Capsule PO (06:18)
[2025-02-13] MEDS: ipratropium-albuterol 3 mL Neb INHALATION (07:50)
[2025-02-13 07:52] VITALS: PULSE 105; RESP 22; O2SAT 94
[2025-02-13 07:56] VITALS: PULSE 105
[2025-02-13 08:00] VITALS: BP 174/80; PULSE 93; RESP 14; TEMP 36.8; O2SAT 91
[2025-02-13] MEDS: acetaminophen 325 mg Tablet 650 MG PO (08:05)
[2025-02-13] MEDS: pantoprazole 40 mg SDV IVP (08:05)
[2025-02-13] MEDS: tizanidine 4 mg Tablet PO (08:06)
[2025-02-13] MEDS: metoprolol tartrate 25 mg Tablet 12.5 MG PO (08:06)
[2025-02-13] MEDS: loratadine 10 mg Tablet PO (08:06)
[2025-02-13] MEDS: quetiapine 25 mg Tablet 50 MG PO (08:06)
[2025-02-13] MEDS: pregabalin 100 mg Capsule PO (08:06)
--- NOTE | 2025-02-13 08:45 | PM.DCS ---
Discharge Providers Date of Admission: 02/10/25 10:58 Date of Discharge: February 13, 2025 Attending Provider at Admission: Ian Doshi Attending Provider at Discharge: Harlan Lomas MD Primary Care Provider: Deidra Cid MD Diagnoses at Discharge Discharge Diagnosis (1) Respiratory failure with hypoxia: Status: Acute (2) Left lower lobe pneumonia: Status: Acute (3) Acute exacerbation of chronic obstructive pulmonary disease: Status: Acute (4) CHF (congestive heart failure): Status: Acute Qualifiers: Heart failure chronicity: chronic Heart failure type: diastolic Qualified Code(s): I50.32 - Chronic diastolic (congestive) heart failure (5) Chest tightness: Status: Acute (6) Acute kidney injury: Status: Acute Reason for Visit Reason for Visit: SOB Hospital Course Hospital Course This is a 69-year-old female with a past medical history of CAD, CHF, inflammatory Tritus, hypertension, lipidemia, GERD, generalized anxiety disorder, COPD who presents to [facility] due to shortness of breath, productive cough 3 Patient was admitted to [facility] for acute hypoxic respiratory failure secondary to pneumonia, COPD Respiratory failure with hypoxia: CT/CT angio chest PE protcl [id number] IMPRESSION: 1. No evidence of pulmonary embolism. 2. Mild left basilar reticular opacities could represent developing atypical infection. Small left pleural effusion with areas which appear mildly loculated and complex. Developing small empyema not entirely excluded. Correlate with clinical findings and consider short interval imaging follow-up to document stability. 3. Small nodular opacities in the left lower lobe appears slightly less conspicuous than 12/16/2022 and could represent sequela of infection/inflammation. 4. Similar emphysema. -Initially there was a concern for pulmonary embolism, managed on a heparin drip, however patient's CTA was negative for PE, anticoagulation was discontinued -Secondary to left lower lobe pneumonia, -Secondary to COPD -History of immunocompromise state on Plaquenil, leflunomide - Managed with broad-spectrum antibiotics - Overall clinically improved, afebrile, cultures so far no growth - Discharge with p.o. antibiotics There was concerns for complex left pleural effusion, underwent ultrasound for thoracentesis, however chest ultrasound showed insufficient left pleural effusion for safe thoracentesis. Discussed with patient about performing thoracentesis to rule out empyema and/or complicated parapneumonic effusion, the risks and benefits, she voiced understanding, all questions answered, shared decision making, declined thoracentesis for now. Overall patient has clinically improved, remains afebrile, symptomatology has resolved, discussed with patient that if she does develop recurrent left pleural effusion in the future, she might need a thoracentesis to rule out parapneumonic effusion and/or empyema. Patient hospitalization was complicated by acute on chronic anemia - Discussed history of anemia - She should discontinue meloxicam, Celebrex on discharge due to increased risk of bleeding - Have her primary care provider monitor hemoglobin - If she does develop bloody or black stools go to the emergency room - Follow-up with general surgery for consideration of EGD and colonoscopy Physical Exam Const: COMMON NORMALS: no acute distress and patient oriented x3 Resp: COMMON NORMALS: normal respiratory effort, No retractions, No use of accessory muscles and clear to auscultation bilaterally AUSCULTATION: clear to auscultation bilaterally Cardio: COMMON NORMALS: regular rate, regular rhythm, S1 normal heart sound present and S2 normal heart sound present RATE: regular rate RHYTHM: regular rhythm HEART SOUNDS: S1 normal heart sound present and S2 normal heart sound present GI: COMMON NORMALS: Normal to inspection, nondistended, normoactive bowel sounds present and non-tender Extremity: COMMON NORMALS: no pedal edema Neuro: COMMON NORMALS: patient oriented x3 Psych: COMMON NORMALS: mental status grossly normal Discharge Data Studies Completed and Pending Completed Studies During Hospitalization Category Date Time Status CT angio chest PE protcl [id number] Routine Cat Scan 02/12/25 08:[address] kidney stone [id number] Routine Cat Scan 02/10/25 09:22 Completed Modified barium swallow [FL barium swallow modifd [id number] Exams 02/10/25 09:18 Completed ] Stat XR chest 1V portable [id number] Stat Exams 02/10/25 06:46 Completed CV. echo complete* [id number] Routine Ultrasound 02/11/25 18:29 Com[place] chest [id number] Routine Ultrasound 02/13/25 09:22 Completed US venous duplex lower extremity LT [CV venous duplex Ultrasound 02/10/25 07:47 [place] [id number]] Stat Pending at discharge Category Date Time Status Blood Culture Stat Lab 02/10/25 07:31 Results Complete Blood Count w/Auto AM LABS Lab 02/14/25 04:00 Ordered Comprehensive Metabolic Panel AM LABS Lab 02/14/25 04:00 Ordered Occult Blood Stool [Immunochemical Fecal OCB] Routine Lab 02/13/25 07:10 Received Sputum Culture and Gram Stain Routine Lab 02/10/25 12:02 Uncollected Sputum Culture and Gram Stain Stat Lab 02/10/25 07:43 Uncollected Radiology Impressions Chest X-Ray 02/10/25 06:46 IMPRESSION: Patchy airspace disease left lung base concerning for infiltrate. Modified Barium Swallow 02/10/25 09:18 Impression: 1. Good oral phase with no significant residue after swallowing multiple food formulations. 2. No aspiration or penetration. 3. Delay in barium tablet passing through the esophagus. Abdomen/Pelvis CT 02/10/25 09:22 IMPRESSION: 1. No acute intra-abdominal findings. 2. New mild asymmetric opacity in the left lung base with lower lobe bronchiectasis bilaterally. Findings are suspicious for infection or aspiration. 3. 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 No sign of bowel obstruction. No sign of bowel inflammation. Chest CTA 02/12/25 08:18 IMPRESSION: 1. No evidence of pulmonary embolism. 2. Mild left basilar reticular opacities could represent developing atypical infection. Small left pleural effusion with areas which appear mildly loculated and complex. Developing small empyema not entirely excluded. Correlate with clinical findings and consider short interval imaging follow-up to document stability. 3. Small nodular opacities in the left lower lobe appears slightly less conspicuous than 12/16/2022 and could represent sequela of infection/inflammation. 4. Similar emphysema. COMMENTS: The presence of pulmonary emphysema on CT is an independent risk factor for lung cancer. In the absence of a history or active diagnosis of lung cancer, it is recommended that this patient with emphysema be evaluated for enrollment in a low dose CT lung cancer screening program. Chest Ultrasound 02/13/25 09:22 IMPRESSION: Insufficient LEFT pleural effusion for safe thoracentesis. Laboratory Results WBC 7.90 10^3/uL (3.29-11.43) 02/13/25 03:41 RBC 2.44 10^6/uL (3.85-5.65) L 02/13/25 03:41 Hgb 8.00 g/dL (11.27-16.99) L 02/13/25 03:41 Hct 25.7 % (36-47) L 02/13/25 03:41 MCV 105.3 fl (85-98) H 02/13/25 03:41 MCH 32.8 pg (27-33) 02/13/25 03:41 MCHC 31.1 g/dL (30-55) 02/13/25 03:41 RDW 13.3 % (12.1-15.1) 02/13/25 03:41 Plt Count 122 10^3/cmm (157-399) L 02/13/25 03:41 MPV 10.7 fL (7.4-10.4) H 02/13/25 03:41 Neut % (Auto) 82.0 % 02/13/25 03:41 Lymph % (Auto) 6.1 % 02/13/25 03:41 [place] % (Auto) 9.1 % 02/13/25 03:41 Eos % (Auto) 0.0 % 02/13/25 03:41 Baso % (Auto) 0.1 % 02/13/25 03:41 Neut # (Auto) 6.48 10^3/uL (1.8-7.7) 02/13/25 03:41 Lymph # (Auto) 0.5 10^3/uL (0.8-4.8) L 02/13/25 03:41 [place] # (Auto) 0.7 10^3/uL (0.2-0.9) 02/13/25 03:41 Eos # (Auto) 0.0 10^3/uL (0.0-0.8) 02/13/25 03:41 Baso # (Auto) 0.0 10^3/uL (0.0-0.1) 02/13/25 03:41 Nucleated RBC % (auto) 0 % 02/13/25 03:41 Nucleated RBCs # 0.0 /100WBC 02/13/25 03:41 APTT 85.2 SECONDS (23.9-36.7) H 02/12/25 07:00 D-Dimer 3.55 ug/mLFEU (0-0.59) H 02/11/25 11:23 Specimen Type Arterial 02/10/25 06:56 Sample Site Radial, right 02/10/25 06:56 ABG pH 7.28 (7.35-7.45) L 02/10/25 06:56 ABG pCO2 38.7 mmHg (35-45) 02/10/25 06:56 ABG pO2 131.0 mmHg (80.0-100.0) H 02/10/25 06:56 ABG HCO3 18.1 mmol/L (22-26) L 02/10/25 06:56 ABG O2 Saturation 97.8 02/10/25 06:56 ABG Base Excess -8.0 mmol/L (-2.0-2.0) L 02/10/25 06:56 Vasyl Test Pos 02/10/25 06:56 A-a O2 Gradient 4.1 mmHg (5-10) L 02/10/25 06:56 Hematocrit 30.9 % (37-47) L 02/10/25 06:56 Hgb O2 Saturation 94.5 % (95-100) L 02/10/25 06:56 Carboxyhemoglobin 1.4 %THgb (0.4-20.1) 02/10/25 06:56 Methemoglobin 1.9 % (0.4-1.5) H 02/10/25 06:56 Total Hemoglobin 10.1 g/dL (12-16) L 02/10/25 06:56 Sodium 140.0 mmol/L (131-143) 02/10/25 06:56 Potassium 3.8 mmol/L (3.5-5.0) 02/10/25 06:56 Glucose 115.0 mg/dL (70-115) 02/10/25 06:56 Ionized Calcium 1.1 mmol/L (1.1-1.4) 02/10/25 06:56 O2 Delivery Device Nc 02/10/25 06:56 O2 Liters/Min 4.5 % 02/10/25 06:56 Rn Wellness ID [place] 02/10/25 06:56 Sodium 141 mmol/L (136-145) 02/13/25 03:41 Potassium 3.7 mmol/L (3.5-5.1) 02/13/25 03:41 Chloride 110 mmol/L (98-107) H 02/13/25 03:41 Carbon Dioxide 22 mmol/L (22-29) 02/13/25 03:41 Anion Gap 12.7 (5-19) 02/13/25 03:41 BUN 27 mg/dL (8-23) H 02/13/25 03:41 Creatinine 1.0 mg/dL (0.5-0.9) H 02/13/25 03:41 GFR Calculation 54.8 mL/min (90-130) L 02/13/25 03:41 Glucose 95 mg/dL (65-115) 02/13/25 03:41 Calculated Osmolality 297 mOsm/kg (285-295) H 02/13/25 03:41 Lactic Acid 2.7 mmol/L (0.5-2.2) H 02/10/25 07:31 Lactic Acid (Sepsis) 1.9 mmol/L (0.5-2.2) 02/10/25 10:53 Calcium 8.3 mg/dL (8.5-10.5) L 02/13/25 03:41 Total Bilirubin 0.2 mg/dL (0.15-1.2) 02/13/25 03:41 AST 11 U/L (0-32) 02/13/25 03:41 ALT 7 U/L (0-33) 02/13/25 03:41 Alkaline Phosphatase 90 U/L (35-105) 02/13/25 03:41 Creatine Kinase 57 U/L (26-192) 02/10/25 07:31 Troponin T Baseline 17 ng/L (0-10) H 02/10/25 07:31 Troponin T 120 Minute 16.75 ng/L (0-10) H 02/10/25 09:39 Delta Troponin T -0.25 ABS# (0-10) L 02/10/25 09:39 Troponin T Hi Sens 6Hr 21.92 ng/L (0-10) H 02/10/25 14:23 Troponin T Hi Sens 6Hr Delta 4.92 ng/L (0-12) 02/10/25 14:23 NT-Pro-B Natriuret Pep 6393 pg/mL (0-125) H 02/11/25 13:54 Total Protein 5.0 g/dL (6.6-8.7) L 02/13/25 03:41 Albumin 2.9 g/dL (3.5-5.2) L 02/13/25 03:41 Globulin 2.1 g/dL (1.3-4.6) 02/13/25 03:41 TSH 1.27 uIU/mL (0.27-4.20) 02/10/25 07:31 Urine Color Dark yellow (Yellow) A 02/11/25 02:52 Urine Appearance Clear (CLEAR) 02/11/25 02:52 Urine pH 5.5 (5-7) 02/11/25 02:52 Ur Specific [place] 1.021 (1.005-1.030) 02/11/25 02:52 Urine Protein 2+ (Negative) A 02/11/25 02:52 Urine Glucose (UA) Negative (Normal) 02/11/25 02:52 Urine Ketones Trace (Negative) 02/11/25 02:52 Urine Blood Negative (Negative) 02/11/25 02:52 Urine Nitrate Negative (Negative) 02/11/25 02:52 Urine Bilirubin Negative (Negative) 02/11/25 02:52 Urine Urobilinogen 1.0 mg/dL (Negative) 02/11/25 02:52 Ur Leukocyte Esterase Negative (Negative) 02/11/25 02:52 Urine RBC 0-2 /hpf (0-2) 02/11/25 02:52 Urine WBC 0-5 /hpf (0-5) 02/11/25 02:52 Ur Squamous Epith Cells 6-10 /hpf (0-5) 02/11/25 02:52 Amorphous Sediment Not Reportable 02/11/25 02:52 Urine Bacteria None seen /hpf (NONE) 02/11/25 02:52 Hyaline Casts 8.26 /lpf 02/11/25 02:52 Ur Random Sodium 22 mmol/L 02/10/25 02:52 Urine Creatinine 107 mg/dL (28-217) 02/10/25 02:52 Nasal MRSA (PCR) Not detected (Not Detecte) 02/11/25 04:27 Influenza A (PCR) Negative (Negative) 02/10/25 07:23 Influenza Type B (PCR) Negative (Negative) 02/10/25 07:23 RSV (PCR) Negative (Negative) 02/10/25 07:23 SARS-CoV-2 (PCR) Negative (Negative) 02/10/25 07:23 Vitals Last Vital Signs Temp 98.3 F 02/13/25 08:00 Pulse 93 06/02/25 08:00 Resp 14 02/13/25 08:00 BP 174/80 02/13/25 08:00 Pulse Ox 91 02/13/25 08:00 O2 Del Method Room Air 02/13/25 08:00 O2 Flow Rate 2 02/11/25 13:59 Discharge Plan Discharge Patient Disposition: Home Condition: Stable Prescriptions: New doxycycline hyclate 100 mg tablet 100 mg PO BID 7 Days Qty: 14 0RF cefdinir 300 mg capsule 300 mg PO BID 7 Days Qty: 14 0RF prednisone 20 mg tablet 20 mg PO BID 5 Days Qty: 10 0RF Continued aspirin 81 mg tablet,delayed release (DR/EC) 81 mg PO QAM (DME) Oxygen See Rx Instructions .Route .MEDSUPPLY Qty: 1 0RF Rx Instructions: As directed, 2Liters by nasal cannula with activity. quantity 1, oxygen. one portable concentrator also albuterol sulfate 90 mcg/actuation HFA aerosol inhaler 2 puff INHALATION Q6H PRN (Reason: shortness of breath or wheezing) 30 Days Qty: 18 5RF atorvastatin 10 mg tablet 10 mg PO QPM Qty: 90 3RF alprazolam 0.5 mg tablet 0.5 mg PO DAILY PRN (Reason: anxiety) 30 Days Qty: 30 5RF hydroxychloroquine 200 mg tablet 200 mg PO BID Qty: 180 1RF leflunomide [Arava] 20 mg tablet 20 mg PO DAILY Qty: 90 1RF tizanidine 4 mg tablet 4 mg PO Q4H PRN (Reason: Muscle Spasm) 30 Days Qty: 120 5RF pregabalin 100 mg capsule 100 mg PO TID 30 Days Qty: 90 3RF Protonix 40 mg tablet,delayed release (DR/EC) 40 mg PO BID 90 Days Qty: 180 2RF metoprolol tartrate 25 mg tablet 12.5 mg PO BID 90 Days Qty: 90 2RF Combivent Respimat 20-100 mcg/actuation mist 1 puff INHALATION QID PRN (Reason: shortness of breath or wheezing) 30 Days Qty: 4 5RF fluticasone propionate 50 mcg/actuation spray,suspension 1 spray INTRANASAL Q12H PRN (Reason: Nasal Congestion) Qty: 16 5RF Rx Instructions: administer into each nostril loratadine [Allergy Relief (loratadine)] 10 mg tablet 10 mg PO DAILY Qty: 90 1RF benzonatate 100 mg capsule 100 mg PO TID PRN (Reason: cough) Qty: 30 5RF Creon 24,000-76,000 -120,000 unit capsule,delayed release(DR/EC) See Rx Instructions .ROUTE .COMPLEX Qty: 100 1RF Dose Instruction: TAKE 1 CAPSULE BY MOUTH THREE TIMES DAILY. ADMINISTER WITH MEALS AND/OR SNACKS Rx Instructions: TAKE 1 CAPSULE BY MOUTH THREE TIMES DAILY. ADMINISTER WITH MEALS AND/OR SNACKS quetiapine 50 mg tablet 50 mg PO BID 30 Days Qty: 60 4RF promethazine 25 mg tablet 25 mg PO Q6H PRN (Reason: nausea and vomiting) Qty: 20 3RF tramadol 50 mg tablet 50 mg PO BID PRN (Reason: pain) Qty: 60 1RF sulfasalazine 500 mg tablet 0.5 g PO BID Qty: 60 1RF Rx Instructions: give with food (meal/snack) Discontinued celecoxib [Celebrex] 100 mg capsule 100 mg PO BID PRN (Reason: pain) 30 Days Qty: 60 5RF Rx Instructions: WITH FOOD meloxicam 15 mg tablet 15 mg PO DAILY Discharge Orders: Discharge Order (Routine); Ordered 02/13/25 Ordered By: Harlan Lomas Referrals: Stevenson Calzada MD [Physician, General Surgery] - 03/14/25 8:00 am Referral Note: anemia , need egd and colonoscopy James Gnadara MD, MBBS, MPH [Referring, Pulmonology] - 2 months Referral Note: copd, pna, lung nodular opacaties We have notified your physician's clinic of the need for a follow-up appointment to be scheduled. If you have not heard from them within the next 2 business days, please call them directly. Deidra Cid MD [Primary Care Provider, Family Practice] - 02/16/25 10:45 am Discharge Diet: Cardiac Discharge Activity: Resume usual activity Patient Instructions: COPD, Doxycycline (By mouth), Prednisone (By mouth), Cefdinir (By mouth), Heart Failure (GEN), Pneumonia (GEN), CHF Stoplight, COPD Stoplight, Opioid Safety, Pain Management, Pneumonia Stoplight Activity Restrictions/Additional Instructions: -please stop taking meloxicam and celebrex due to bleed and anemia risk -have your primary care follow your hemoglobin -if you develop bloody or black stools go to emergency room -please follow up with pulmonary Discharge Attestations Time Spent in Discharge Care*: greater than 30 min Quality Metrics Clinical Quality Measures [ No reported AMI, CVA or VTE this stay] Coding Level of Care Code 16451 Total time (in minutes) for Discharge: 45 Diagnoses Respiratory failure with hypoxia J96.91 Left lower lobe pneumonia J18.9 Acute exacerbation of chronic obstructive pulmonary disease J44.1 Chronic diastolic congestive heart failure I50.32 Heart failure chronicity: chronic Heart failure type: diastolic Chest tightness R07.89 Acute kidney injury N17.9
--- NOTE | 2025-02-13 09:22 | US_ITS ---
WS: [id number] Limited chest ultrasound. HISTORY: Evaluate for pleural effusion. COMPARISON: 02/12/2025 CT. Insufficient LEFT pleural effusion for proceeding with safe thoracentesis. Only a very small effusion was also noted on the recent CT. US/US chest 15029 IMPRESSION: Insufficient LEFT pleural effusion for safe thoracentesis.
[2025-02-13 10:52] VITALS: BP 174/80; PULSE 93; RESP 16; TEMP 36.8; O2SAT 91
== END 2025-02-13 10:53 | disposition home or self-care (01) | DRG 193 ==
LOC: ER 08:20 → ICU 10:59 → MEDSURG 02-11 15:37
PROVIDERS: Internal Medicine; Admitting Provider Internal Medicine; Emergency Provider Family Medicine; PCP Family Medicine; Visit Provider Family Medicine
DX: J18.9 Pneumonia, unspecified organism (principal); J96.01 Acute respiratory failure with hypoxia; J44.0 Chronic obstructive pulmonary disease with (acute) lower respiratory infection; J44.1 Chronic obstructive pulmonary disease with (acute) exacerbation; I50.32 Chronic diastolic (congestive) heart failure; N17.9 Acute kidney failure, unspecified; E87.20 Acidosis, unspecified; I11.0 Hypertensive heart disease with heart failure; I25.10 Atherosclerotic heart disease of native coronary artery without angina pectoris; E78.5 Hyperlipidemia, unspecified; K21.9 Gastro-esophageal reflux disease without esophagitis; F41.1 Generalized anxiety disorder; M72.0 Palmar fascial fibromatosis [Dupuytren]; G47.00 Insomnia, unspecified; R00.0 Tachycardia, unspecified; D64.9 Anemia, unspecified; M25.50 Pain in unspecified joint; Z99.81 Dependence on supplemental oxygen; Z79.82 Long term (current) use of aspirin; Z79.51 Long term (current) use of inhaled steroids; Z79.891 Long term (current) use of opiate analgesic; Z79.60 Long term (current) use of unspecified immunomodulators and immunosuppressants
CPT/HCPCS: 36415; 36600; 71045; 71275; 74176; 74230; 76604; 80048; 80051; 80053; 81001; 82274; 82330; 82550; 82570; 82805; 83605; 83880; 84300; 84443; 84484; 85014; 85018; 85025; 85378; 85730; 86403; 87040; 87449; 87637; 92611; 93005; 93306; 93971; 94640; 94664; 96365; 96367; 96372; 96375; 96376; 99291; J0456; J0696; J1644; J1650; J2470; J2919; J7030; J7050; J9999

== ENCOUNTER → 2025-02-23 13:31 | Outpatient (BNVA) | payer OTHER, MEDICAID, SELFPAY ==
[2024-08-02 09:21] VITALS: BP 133/87; BMI 21.7
== END ==
PROVIDERS: PCP Family Medicine; Visit Provider Family Medicine
DX: J18.9 Pneumonia, unspecified organism (principal); J91.8 Pleural effusion in other conditions classified elsewhere; I70.0 Atherosclerosis of aorta; D53.9 Nutritional anemia, unspecified; N17.9 Acute kidney failure, unspecified; J44.9 Chronic obstructive pulmonary disease, unspecified
CPT/HCPCS: 71046; 80048; 85025